=== PATIENT | male | born 1980 | race Caucasian/White ===

== ENCOUNTER 2019-06-27 11:47 | Inpatient (IN) | payer OTHER, SELFPAY ==
[2019-06-27] VITALS (11 sets, daily range): BP systolic 110–207; BP diastolic 71–136; PULSE 90–114; RESP 16–20; TEMP 36.7–37.2; O2SAT 92–99; BMI 37.7; BMI 36.8
[2019-06-27] MEDS: LORazepam 2 MG/ML Syringe 1 MG IV ×3 (12:35→18:37)
[2019-06-27 12:54] LABS: Absolute Lymphocyte Count 0.93 X10^3/uL (0.83-4.51); Basophil# 0.06 X10^3/uL; Basophil% 1.3 % (0-1); Eosinophil# 0.06 X10^3/uL; Eosinophils% 1.3 % (0-5); Hematocrit 42.4 % (40-54); Hemoglobin 15.4 g/dL (13.0-16.5); Lymphocyte # 0.93 X10^3/ul (4.0); Lymphocyte % 19.8 % (19-41); Mean Corp Hgb Conc 36.3 g/dL (32-36); Mean Corpuscular Hgb 33.3 pg (27.0-32.0); Mean Corpuscular Volume 91.6 fL (80-94); Monocyte# 0.61 X10^3/uL; NRBC Flagged by Analyzer 0 % (0-5); Neutrophil # 3.02 X10^3/uL (2.7-7.7); Neutrophil % 64.4 % (47-70); Platelet Count 173 K/mm3 (150-450); RBC Distribution Width CV 13.6 % (11.6-14.6); RBC Distribution Width SD 45.7 fl (35.1-43.9); Red Blood Count 4.63 M/mm3 (4.6-6.2); White Blood Count 4.7 K/mm3 (4.4-11.0)
[2019-06-27 13:07] LABS: Amphetamine Urine VISTA NEGATIVE (<1000 ng/mL); Barbiturate Urine VISTA NEGATIVE (< 200 ng/mL); Benzodiazepine Urine VISTA NEGATIVE (< 200 ng/mL); Cocaine Urine VISTA NEGATIVE (< 300 ng/mL); Ecstacy Urine VISTA NEGATIVE (< 500 ng/mL); Methadone Urine VISTA NEGATIVE (< 300 ng/mL); PCP Urine VISTA NEGATIVE (< 25 ng/mL); THC Urine VISTA NEGATIVE (< 50 ng/mL); Vista UDS pH Range 6
[2019-06-27 13:09] LABS: AST(SGOT) 100 U/L (15-37); Alanine Aminotransfer ALT/SGPT 145 U/L (16-61); Albumin, Serum 4.3 g/dL (3.2-5.0); Alkaline Phosphatase 57 U/L (45-117); Anion Gap 9 (5-15); BUN 7 mg/dL (7-18); Chloride 98 mmol/L (98-107); Creatinine, Serum 0.87 mg/dL (0.70-1.30); EST Glomerular Filtration Rate 104 mL/min (>60); Est Glom Filt Rate - Afr Amer 126 mL/min (>60); Estimated Creatinine Clearance 101.13 ml/min; Globulin 4.3 g/dL (2.2-4.2); Glucose 105 mg/dL (74-106); Potassium 3.3 mmol/L (3.5-5.1); Protein, Total 8.6 g/dL (6.4-8.2); Sodium Level 133 mmol/L (136-145)
--- NOTE | 2019-06-27 13:23 | ED.VISSUMM ---
- ER Visit Summary Date of Service: 06/27/19 Chief Complaint: Alcohol withdrawal History of Present Illness: The patient is a 38 M who drinks 18 or more beers per day. His last use was this morning at 9 AM. His last period of sobriety was earlier in the summer for about a week. No history of seizures or DTs. Denies any suicidal or homicidal thoughts. He is requesting alcohol detox. He also reports a history of hypertension, he is not taking his blood pressure medications as he does not follow-up with physician regularly. Physical Examination: Blood pressure 207/136. Heart rate 106. Otherwise vitals unremarkable. Patient depressed and tearful. Alert and oriented. Heart regular. Lungs clear. Abdomen soft and nontender. Skin is flushed but otherwise unremarkable. CIWA score is 21. Test Results: CBC unremarkable. Sodium 133 and potassium 3.3. ALT 145 and AST 100. Tox screen negative. Alcohol level pending. Emergency Department Course and Treatment: Patient treated with Ativan for withdrawal symptoms. Medical clearance was pursued. His work-up, as above, was unremarkable. His repeat blood pressure after Ativan was 168/124. He was treated with clonidine 0.1 mg p.o. Patient was evaluated by josué nieves and does meet criteria for admission. Will contact the hospitalist. Treatment Plan: As above Disposition: Admission Impression: 1. Alcohol withdrawal 2. Hypertension This note was generated with [employer] dictation software. It may contain incorrect words, spelling, and punctuation that were not noted in review of the chart prior to signing ED Disposition - Plan for ED Patient: Referrals: Jessenia Hensley NP-C [Primary Care Provider] -
--- NOTE | 2019-06-27 13:53 | HP.PCM_ITS ---
Problem List (1) Hypertensive urgency Status: Acute (2) Alcohol withdrawal delirium, acute, hyperactive Status: Acute (3) Hypertension Status: Chronic (4) Eosinophilic esophagitis Status: Chronic History of Present Illness Date of Admission: 06/27/19 Chief Complaint: Alcohol withdrawal syndrome. The patient is a 38 year old M with history of hypertension noncompliant to medication came to ED for withdrawal symptoms. Patient has a history of drinking 18 or more beers every day started in teenage, last drink 9 AM today. Patient tried for quitting and was sober for about 1 week and summer. Patient usually gets tremors, sometimes tactile hallucination as withdrawal symptoms. Denies history of seizure. Currently, feeling anxious, restless, loose bowel movement but denies active hallucinations. Patient CIWA score was 21 in the ED. Patient also has elevated blood pressure, 207/136, heart rate 106/min. Patient was given Ativan 1 mg and blood pressure came down to 168/124. Patient also given clonidine 0.1 mg. [] Past Medical History Past Medical History (Chronic Problems): Chronic Problems Hypertension (Chronic) Eosinophilic esophagitis (Chronic) Allergies oxaprozin [From Daypro] Allergy (Verified 06/27/19 11:52) Hives Home Medications: Ambulatory Orders Medication Instructions Recorded Lansoprazole [Prevacid] 30 mg PO DAILY 06/27/19 Loratadine [Claritin] 10 mg PO DAILY 06/27/19 Smoking Status: Never smoker - *Family History Paternal History Items: Heart Disease, - - Chronic alcohol disease/alcoholic hepatitis Review of Systems Constitutional: Denies: Chills, Fever, Weight Change HEENT: Denies: Head Aches, Sinus Congestion, Sinus Drainage Cardiovascular: Denies: Chest Pain, Palpitations Respiratory: Denies: Cough, Shortness of breath at rest, Sputum production Gastrointestinal: Denies: Abdominal Pain, Nausea, Vomiting Genitourinary: Denies: Dysuria, Frequency, Hematuria, Incontinence Musculoskeletal: Reports: Joint Pain - Chronic right shoulder surgery.. Denies: Joint Tenderness Skin: Denies: Rash, Wounds Neurological: Denies: Numbness, Tingling, Focal weakness Psychiatric: Reports: Anxiety. Denies: Depression, Homicidal Ideations, Suicidal Ideations Hematologic/ Lymphatic: Denies: Easy Bruising, Easy Bleeding VTE Information - Inpt Only VTE Present on Admission: No VTE Mechan Device Prophylaxis: None VTE Pharm Prophylaxis ordered?: No Reason prophylaxis not ordered:: Procedure Not Indicated Patient Problems: Active and Suspected Problems Hypertensive urgency (Acute) Alcohol withdrawal delirium, acute, hyperactive (Acute) - Physical Exam General: Alert, Oriented x3, Cooperative HEENT: Atraumatic, PERRLA, EOMI, Normocephalic Oral: Dry Mucosa Neck: Supple, No JVD, Negative Carotid Bruits Lungs: Clear to auscultation, No rhonchi, No wheeze, No rales, Diminished - Air entry is diminished in bilateral lung bases. Cardiovascular: Regular rate, Regular Rhythm, Normal S1, Normal S2, No murmurs Abdomen: Bowel Sounds Present, Soft, Non Tender, Non-Distended Extremities: No edema, Capillary Refill Less than 3 Seconds Skin: No rashes, No breakdown Musculoskeletal: No Tenderness to Palpation of Joints or Extremities, - - Shoulder arthritis changes. Neurological: Cranial nerves II-XII grossly intact, Deep Tendon Reflexes 2+/4 and Symmetrical, Neuro grossly intact, Motor Exam 5/5 strength throughout Psych/Mental Status: Normal Affect, Appropriate Vital Signs Temp Pulse Resp BP Pulse Ox 98.3 F 90 16 168/124 H 99 06/27/19 12:03 06/27/19 13:21 06/27/19 13:21 06/27/19 13:21 06/27/19 13:21 Oxygen Delivery Method Room Air Weight: 226 lb 10.163 oz Body Mass Index (BMI) 37.7 Laboratory Tests Past 24 Hrs 06/27/19 06/27/19 06/27/19 12:43 12:43 12:43 WBC 4.7 RBC 4.63 Hgb 15.4 Hct 42.4 MCV 91.6 MCH 33.3 H MCHC 36.3 H RDW Std Deviation 45.7 H RDW Coeff of Lalitha 13.6 Plt Count 173 MPV 10.0 Immature Gran % (Auto) 0.200 Neut % (Auto) 64.4 Lymph % (Auto) 19.8 [place] % (Auto) 13.0 H Eos % (Auto) 1.3 Baso % (Auto) 1.3 H Absolute Neuts (auto) 3.0 Absolute Lymphs (auto) 0.93 Nucleated RBC % 0 Sodium 133 L Potassium 3.3 L Chloride 98 Carbon Dioxide 26.0 Anion Gap 9 BUN 7 Creatinine 0.87 Estim Creat Clear Calc 101.13 Est GFR (MDRD) Af Amer 126 Est GFR (MDRD) Non-Af 104 BUN/Creatinine Ratio 8.0 L Glucose 105 Calcium 9.0 Total Bilirubin 0.60 AST 100 H ALT 145 H Alkaline Phosphatase 57 Total Protein 8.6 H Albumin 4.3 Globulin 4.3 H Albumin/Globulin Ratio 1.0 Urine Opiates Screen Urine Methadone Screen Ur Barbiturates Screen Ur Phencyclidine Scrn Ur Amphetamines Screen U Methamphetamin-MDMA U Benzodiazepines Scrn Urine Cocaine Screen U Cannabinoids Screen Ur Drug Screen Comment Ethyl Alcohol 119.0 06/27/19 12:45 WBC RBC Hgb Hct MCV MCH MCHC RDW Std Deviation RDW Coeff of Lalitha Plt Count MPV Immature Gran % (Auto) Neut % (Auto) Lymph % (Auto) [place] % (Auto) Eos % (Auto) Baso % (Auto) Absolute Neuts (auto) Absolute Lymphs (auto) Nucleated RBC % Sodium Potassium Chloride Carbon Dioxide Anion Gap BUN Creatinine Estim Creat Clear Calc Est GFR (MDRD) Af Amer Est GFR (MDRD) Non-Af BUN/Creatinine Ratio Glucose Calcium Total Bilirubin AST ALT Alkaline Phosphatase Total Protein Albumin Globulin Albumin/Globulin Ratio Urine Opiates Screen NEGATIVE Urine Methadone Screen NEGATIVE Ur Barbiturates Screen NEGATIVE Ur Phencyclidine Scrn NEGATIVE Ur Amphetamines Screen NEGATIVE U Methamphetamin-MDMA NEGATIVE U Benzodiazepines Scrn NEGATIVE Urine Cocaine Screen NEGATIVE U Cannabinoids Screen NEGATIVE Ur Drug Screen Comment Ethyl Alcohol Assessment/Plan All Active Problems Hypertensive urgency (Acute) Alcohol withdrawal delirium, acute, hyperactive (Acute) There is a 38 old gentleman was admitted for medical stabilization of alcohol withdrawal symptoms. Patient last drink was 9 AM today and drinks 18 beers daily. Patient also had hypertensive urgency, admitting blood pressure 207/136 in ED. CIWA score 21 to ED. 1. Acute alcohol withdrawal syndrome: Patient is being admitted in PCU for hypertensive urgency. On medical stabilization order for alcohol withdrawal. CIWA monitoring. Currently on Librium scheduled and then taper. 2. Hypertensive urgency: Patient is noncompliant with antihypertensive medication. On her home medication, there is no listed antihypertensive medication but he told he was prescribed in the past. Started on clonidine 0.2 mg twice daily for 2 days, lisinopril 10 mg daily along with hydralazine 10 mg every 4 hourly as needed for systolic blood pressure more than 180 mmHg. Twelve-lead EKG ordered. Patient also has history of chest pain in the past and had a stress test done which was negative. Currently patient denies chest pain, shortness of breath. 3. Alcoholic hepatitis: ALT and AST elevated 145 and 100. Total bili is normal. Alkaline phosphatase 57. A/G ratio 1:1 . Monitor LFT daily and if transaminases worsens, change Librium to Ativan. Currently, I think Librium will be better option because of high CIWA score and patient chronic alcoholism history. On thiamine, folic acid and multivitamin. B12 and folic acid ordered. Right upper quadrant sonogram for tomorrow a.m. 4. Electrolyte imbalance: Patient has hyponatremia, mainly hypotonic hypovolemic and hypokalemia: Electrolytes are being replaced. On IV fluid normal saline 100 mL/h for 2 L. DVT prophylaxis: Low risk early ambulation encouraged. Code Visit Inpatient E&M: 46468 Init Hosp L3
[2019-06-27] MEDS: cloNIDine HCl 0.1 MG Tablet PO (14:06)
--- NOTE | 2019-06-27 14:41 | EKG12_ITS ---
Test Reason : HTN Blood Pressure : / mmHG Vent. Rate : 104 BPM Atrial Rate : 104 BPM P-R Int : 170 ms QRS Dur : 104 ms QT Int : 362 ms P-R-T Axes : 017 013 -10 degrees QTc Int : 476 ms Sinus tachycardia Possible Left atrial enlargement Left ventricular hypertrophy T wave abnormality, consider inferior ischemia Abnormal ECG No previous ECGs available Confirmed by NAZANIN GOMEZ ([id number]), technical editor JOSE DICK ([id number]) on 07/01/2019 9:03:44 AM Referred By: ANG Confirmed By:NAZANIN GOMEZ
[2019-06-27 15:01] LABS: Phosphorus 3.5 mg/dL (2.5-4.9)
[2019-06-27 15:17] LABS: International Normalized Ratio 0.9; Prothrombin Time (Protime)PT. 12.4 SECONDS (11.7-14.9)
[2019-06-27] MEDS: Lisinopril 10 MG Tablet PO (15:26)
[2019-06-27] MEDS: 0.9% Normal Saline 1,000 ML 100 ML IV (15:27)
[2019-06-27 15:40] LABS: Bedside Glucose 105 mg/dL (70-110)
[2019-06-27] MEDS: chlordiazePOXIDE 25 MG Capsule PO ×2 (15:45→21:34)
[2019-06-27] MEDS: hydrOXYzine PAM 25 MG Capsule 50 MG PO (17:08)
[2019-06-27] MEDS: hydrALAZINE 20 MG/ML Vial 10 MG IV (17:09)
[2019-06-27] MEDS: 0.9% NaCl Peripheral Flush Adult/Peds IV (18:38)
[2019-06-27] MEDS: Ibuprofen 600 MG Tablet 400 MG PO (18:43)
[2019-06-27] MEDS: traZODone 50 MG Tablet PO (21:33)
--- NOTE | 2019-06-27 21:35 | NURSING ---
Pt made NPO at this time for Liver US in the AM.
[2019-06-28] VITALS (17 sets, daily range): BP systolic 131–154; BP diastolic 82–103; PULSE 79–98; RESP 12–21; TEMP 36.8–37.3; O2SAT 92–97
[2019-06-28] MEDS: 0.9% Normal Saline 1,000 ML 100 ML IV (02:06)
[2019-06-28] MEDS: chlordiazePOXIDE 25 MG Capsule PO ×3 (05:01→17:48)
[2019-06-28 08:27] LABS: ALB/GLOB Ratio 0.9 RATIO (0.9-2.4); AST(SGOT) 61 U/L (15-37); Alanine Aminotransfer ALT/SGPT 104 U/L (16-61); Albumin, Serum 3.3 g/dL (3.2-5.0); Alkaline Phosphatase 46 U/L (45-117); Anion Gap 7 (5-15); BUN 13 mg/dL (7-18); BUN/Creat Ratio 13.6 RATIO (10-20); Calcium,Total 8.6 mg/dL (8.5-10.1); Chloride 106 mmol/L (98-107); Creatinine, Serum 0.96 mg/dL (0.70-1.30); EST Glomerular Filtration Rate 94 mL/min (>60); Est Glom Filt Rate - Afr Amer 114 mL/min (>60); Estimated Creatinine Clearance 91.64 ml/min; Globulin 3.5 g/dL (2.2-4.2); Glucose 100 mg/dL (74-106); Protein, Total 6.8 g/dL (6.4-8.2); Sodium Level 140 mmol/L (136-145)
[2019-06-28 09:57] LABS: Vitamin B12 391 pg/mL (211-911)
[2019-06-28] MEDS: Lisinopril 10 MG Tablet PO (10:14)
[2019-06-28] MEDS: Pantoprazole Sodium 40 MG Tablet PO (10:14)
[2019-06-28] MEDS: Multivitamins,Therapeutic Tablet 1 TABLET PO (10:14)
[2019-06-28] MEDS: Thiamine Hydrochloride 100 MG Tablet PO (10:14)
[2019-06-28] MEDS: Folic Acid 1 MG Tablet PO (10:14)
[2019-06-28] MEDS: cloNIDine HCl 0.1 MG Tablet 0.2 MG PO ×2 (10:15→22:30)
--- NOTE | 2019-06-28 11:07 | CASEMGMT ---
AGAPITO spoke with Fartun from [employer] and she plans to talk with patient. Estelle MITCHELL MSW
--- NOTE | 2019-06-28 11:28 | [facility]VISION ---
[facility] met with patient to discuss aftercare inpatient/outpatient options. 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 Patient states that he wants time to consider his options in his area and discuss and schedule with his family's help. Patient was advised to consider underlying issues that may have precipitated the drinking and locate a counselor that best suits his needs. [facility] to round tomorrow to assist further if needed.
--- NOTE | 2019-06-28 14:31 | US_ITS ---
STUDY: ABDOMINAL ULTRASOUND - RIGHT UPPER QUADRANT REASON FOR VISIT: Male, 38 years old. Elevated liver function tests. TECHNIQUE: Ultrasound evaluation of the right upper quadrant was performed with real-time and static mendoza-scale imaging. TECHNICAL QUALITY: Adequate. COMPARISON: None. FINDINGS: Liver: The liver measures 15.4 cm. There is increased echogenicity consistent with fatty infiltration. Focal fatty sparing is seen adjacent to the gallbladder fossa. The bile ducts are within normal limits. There is hepatic color flow. The direction of portal flow is hepatopetal. There is no demonstrated mass lesion. Gallbladder: Normal distended gallbladder. The gallbladder wall measures 2.0 mm. There is a negative sonographic Sanchez's sign. There is no pericholecystic fluid. I suspect a solitary gallstone. Common Bile Duct (C.B.D.): The common bile duct measures 3.0 mm. Pancreas: Normal size of the head, body of the pancreas. The tail portion is obscured due to overlying bowel gas. There is normal echogenicity of the pancreas. There is no demonstrated pancreatic mass or cyst. Right Kidney: Normal size of the right kidney. The right kidney measures 12.7 cm x 5.3 cm x 5.5 cm. Normal renal cortex. The right cortex measures 1.6 cm. There is no demonstrated renal mass or cyst. There is no right hydronephrosis. US/Abdomen Limited IMPRESSION: Fatty infiltration of the liver with focal fatty sparing. I suspect a 5 mm x 8 mm x 5 mm solitary gallstone. Electronically Signed: Josh Holguin, at 15:20 EDT , Service support ,
--- NOTE | 2019-06-28 15:05 | PCM.PROGNOTE ---
Patient Problems: Active and Suspected Problems Hypertensive urgency (Acute) Alcohol withdrawal delirium, acute, hyperactive (Acute) Subjective: The patient is a 38-year-old male with a past medical history of alcoholism, obesity, noncompliance with medications and hypertension who presented to the emergency room at [facility] on 06/27/2019 requesting inpatient admission for medical stabilization for withdrawal from alcohol. He admitted to not taking his blood pressure medications consistently. Vital signs at presentation to the emergency room were temp 98.1, pulse rate 106, blood pressure 207/136, respiratory rate 16 and he was 95 to 99% saturated on room air. CBC was unremarkable. PT was within normal limits. Sodium was low at 133 and the potassium was low at 3.3. BUN was 7 and the creatinine was 0.78. Alkaline phosphatase and bilirubin were within normal limits however the AST was elevated at 100 and the ALT was elevated at 145. Ethyl alcohol level was 119 at admission which is consistent with being legally drunk. His last drink of alcohol was a few hours prior to presenting to the emergency department. He had no withdrawal symptoms at presentation to the emergency department. He was admitted to the hospital for medical stabilization for acute alcohol withdrawal and [facility] was consulted. All events of the past 24 hours been reviewed. Afebrile since admission. Heart rate is within normal limits. Current blood pressure is 137/86. Pulse ox is 92% on room air. All lab was personally reviewed. The sodium is up to 140 following hydration and the potassium is normal today at 4.0. AST and ALT are decreasing and are 61 and 104 respectively today. B12 and folate were within normal limits. Started drinking in high school and it was more social. 3 years ago he got a divorce and his drinking started to escalate. For the past year his drinking has gotten much worse and he has been drinking everyday....usually at night. Recently he stopped on his own for 1 week and felt better....lost weight. He had a beer on the weekend and is now drinking daily again. He has never be in rehab before and has never been admitted for a detox program. He stopped the BP pill prescribed by his PCP because he thought it was making him gain weight. He has been having some problems with his new because of the drinking but, in general she is very supportive. He did receive some counselling when he was going through the divorce...not related to alcohol. Tremors are improving, denies hallucinations, denies felling anxious - Physical Exam General: Alert, Oriented x3, Cooperative, - - having mild tremors HEENT: Atraumatic, PERRLA, EOMI, Normocephalic Oral: Moist Mucosa Neck: Trachea Midline Lungs: Clear to auscultation Cardiovascular: Regular rate, Regular Rhythm, Normal S1, Normal S2, No murmurs Abdomen: Bowel Sounds Present, Soft, Non Tender, Non-Distended, Obese, - - No hepatomegaly appreciated Extremities: No clubbing, No cyanosis, No edema Neurological: Cranial nerves II-XII grossly intact, Neuro grossly intact, - - Mild tremors of his hands and tongue Psych/Mental Status: Appropriate - Tearful at times, blaming himself for starting to drink again when he had stopped for a week and felt so much better. Vital Signs Temp Pulse Resp BP Pulse Ox 98.5 F 81 18 137/86 H 92 06/28/19 14:04 06/28/19 14:55 06/28/19 14:04 06/28/19 14:04 06/28/19 14:04 Oxygen Delivery Method Room Air Weight: 224 lb 10.417 oz Body Mass Index (BMI) 36.8 Intake and Output for Last 24 Hours 06/26/19 06/27/19 06/28/19 23:59 23:59 23:59 Intake Total 2429 / 2429 1214 / 1214 Output Total 0 / 0 Balance 2429 / 2429 1214 / 1214 Laboratory Tests Past 24 Hrs 06/27/19 06/28/19 06/28/19 14:45 07:23 07:23 PT 12.4 INR 0.9 Sodium 140 Potassium 4.0 Chloride 106 Carbon Dioxide 27.0 Anion Gap 7 BUN 13 Creatinine 0.96 Estim Creat Clear Calc 91.64 Est GFR (MDRD) Af Amer 114 Est GFR (MDRD) Non-Af 94 BUN/Creatinine Ratio 13.6 Glucose 100 Calcium 8.6 Total Bilirubin 0.80 AST 61 H ALT 104 H Alkaline Phosphatase 46 Total Protein 6.8 Albumin 3.3 Globulin 3.5 Albumin/Globulin Ratio 0.9 Vitamin B12 391 Folate 14.60 POC Glucose 06/27/19 15:31 POC Glucose 105 Medical Necessity - Tobacco Use Smoking Status: Never smoker Assessment/Plan All Active Problems Hypertensive urgency (Acute) Alcohol withdrawal delirium, acute, hyperactive (Acute) Impressions 1. acute alcohol withdrawal 2. Hypertensive urgency 3. non-compliance with medication 4. alcohol dependence 5. Obesity 6. Hyponatremia-resolved 7. Hypokalemia-resolved 8. Abnormal LFTs with transaminitis-likely secondary to alcohol with possible fatty infiltration of the liver Continue [facility] protocol for acute alcohol withdrawal Continue the current Antihypertensives Code Visit Inpatient E&M: 90801 Subs Hosp L2
[2019-06-28] MEDS: traZODone 50 MG Tablet PO (22:29)
[2019-06-29] VITALS (13 sets, daily range): BP systolic 138–188; BP diastolic 92–107; PULSE 71–95; RESP 12–20; TEMP 36.9–37.4; O2SAT 94–96
[2019-06-29] MEDS: chlordiazePOXIDE 25 MG Capsule PO ×3 (02:56→17:14)
[2019-06-29] MEDS: Ibuprofen 400 MG Tablet PO (03:18)
[2019-06-29 05:39] LABS: AST(SGOT) 43 U/L (15-37); Alanine Aminotransfer ALT/SGPT 85 U/L (16-61); Albumin, Serum 3.3 g/dL (3.2-5.0); Alkaline Phosphatase 42 U/L (45-117); Anion Gap 8 (5-15); BUN 20 mg/dL (7-18); Calcium,Total 8.9 mg/dL (8.5-10.1); Chloride 107 mmol/L (98-107); Cholesterol 193 mg/dL (200); Creatinine, Serum 1.11 mg/dL (0.70-1.30); EST Glomerular Filtration Rate 79 mL/min (>60); Est Glom Filt Rate - Afr Amer 96 mL/min (>60); Estimated Creatinine Clearance 79.26 ml/min; Globulin 3.4 g/dL (2.2-4.2); Glucose 105 mg/dL (74-106); High Density Lipoprotein 79 mg/dL; Potassium 4.2 mmol/L (3.5-5.1); Protein, Total 6.7 g/dL (6.4-8.2); Sodium Level 142 mmol/L (136-145); Triglycerides 110 mg/dL; Very Low Density Lipoprotein 22 mg/dL (5-40)
[2019-06-29] MEDS: Thiamine Hydrochloride 100 MG Tablet PO (08:47)
[2019-06-29] MEDS: Multivitamins,Therapeutic Tablet 1 TABLET PO (08:48)
[2019-06-29] MEDS: Pantoprazole Sodium 40 MG Tablet PO (08:48)
[2019-06-29] MEDS: Lisinopril 10 MG Tablet PO ×2 (08:48→21:14)
[2019-06-29] MEDS: Folic Acid 1 MG Tablet PO (08:48)
[2019-06-29] MEDS: cloNIDine HCl 0.1 MG Tablet 0.2 MG PO ×2 (08:53→21:14)
[2019-06-29] MEDS: 0.9% NaCl Peripheral Flush Adult/Peds IV (10:06)
--- NOTE | 2019-06-29 13:30 | NEWVISION ---
Met with patient and patient's to discuss after care options. Provided information for [facility] for one on one counseling,
--- NOTE | 2019-06-29 20:17 | PN_ITS ---
Subjective: All events of the past 24 hours of been reviewed. BP's are still mildly increased but they are coming under better control. Heart rate is within normal limits. He is less tremulous today Denies nausea, vomiting, abdominal pain. Continues to assert that he wants to do outpatient alcohol rehab with [facility] going forward. His is quite concerned about this and I spoke to her privately and together with the patient. Objective: PHYSICAL EXAM: GENERAL: alert, oriented X 3, Cooperative, NAD ORAL: moist mucosa, no mucosal lesions NECK: No JVD, supple, trachea midline LUNGS: CTA, symmetric chest expansion HEART: RRR, Normal S1 and S2, no rub, no gallop ABDOMEN: soft, NT, ND, BS present, no guarding with palpation EXTREMITIES: no edema, no cyanosis, no calf tenderness SKIN: No rashes, no breakdown NEUROLOGIC: no focal neurologic deficits PSYCH: appropriate, normal affect, pleasant - Physical Exam Vital Signs Temp Pulse Resp BP Pulse Ox 98.8 F 84 18 145/95 H 95 06/29/19 17:20 06/29/19 17:20 06/29/19 17:20 06/29/19 17:20 06/29/19 17:00 Oxygen Delivery Method Room Air Weight: 224 lb 10.417 oz Body Mass Index (BMI) 36.8 Intake and Output for Last 24 Hours 06/27/19 06/28/19 06/29/19 23:59 23:59 23:59 Intake Total 2429 / 2429 1944 / 1944 600 / 600 Output Total 0 / 0 Balance 2429 / 2429 194 / 1944 600 / 600 Laboratory Tests Past 24 Hrs 06/29/19 05:10 Sodium 142 Potassium 4.2 Chloride 107 Carbon Dioxide 27.0 Anion Gap 8 BUN 20 H Creatinine 1.11 Estim Creat Clear Calc 79.26 Est GFR (MDRD) Af Amer 96 Est GFR (MDRD) Non-Af 79 BUN/Creatinine Ratio 18.0 Glucose 105 Calcium 8.9 Total Bilirubin 0.50 AST 43 H ALT 85 H Alkaline Phosphatase 42 L Total Protein 6.7 Albumin 3.3 Globulin 3.4 Albumin/Globulin Ratio 1.0 Triglycerides 110 Cholesterol 193 LDL Cholesterol 92 VLDL Cholesterol 22 HDL Cholesterol 79 Medical Necessity - Tobacco Use Smoking Status: Never smoker Assessment/Plan All Active Problems Abnormal LFTs (Acute) Hypokalemia (Resolved) Hyponatremia (Resolved) Hypertensive urgency (Acute) Alcohol withdrawal (Acute) Impressions 1. acute alcohol withdrawal 2. Hypertensive urgency 3. non-compliance with medication 4. alcohol dependence 5. Obesity 6. Hyponatremia-resolved 7. Hypokalemia-resolved 8. Abnormal LFTs with transaminitis-likely secondary to alcohol with possible fatty infiltration of the liver Continue [facility] protocol for acute alcohol withdrawal Start Effexor X are 75 mg p.o. every morning I spent a total of 50 minutes between talking with his individually, the patient individually and the patient and his together. His , Rosa Maria, is quite concerned about him not being able to follow-up with [facility] for 2 weeks. 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 He tells me that there is a man in his [employer] who is a recovering alcoholic and he feels comfortable approaching this gentleman and asking for help. I encouraged Rosa Maria to attend an Al-Anon meeting to learn how to not enable him. Rosa Maria has gotten rid of all the alcohol in their house. We also discussed Antabuse and Vivitrol to help control resumption of alcohol dependence. Servando feels that he can do this and wants to try without Antabuse or Vivitrol and with outpatient counseling only. Will reevaluate in the a.m. and likely discharge home unless he changes his mind. Trazodone 50 to 100 mg nightly Effexor XR 75 mg to begin in the a.m. Patient was assured that Effexor is associated with weight loss and not weight gain. Continue antihypertensives-his blood pressure is very sensitive to any stress Code Visit Inpatient E&M: 70786 Subs Hosp L3
[2019-06-29] MEDS: traZODone 50 MG Tablet PO (21:14)
[2019-06-30] VITALS (7 sets, daily range): BP systolic 158–180; BP diastolic 88–103; PULSE 70–89; RESP 16–18; TEMP 36.6–37.6; O2SAT 94–96
[2019-06-30] MEDS: chlordiazePOXIDE 25 MG Capsule PO (05:03)
[2019-06-30 06:06] LABS: Cholesterol 188 mg/dL (200); High Density Lipoprotein 74 mg/dL; Triglycerides 85 mg/dL; Very Low Density Lipoprotein 17 mg/dL (5-40)
[2019-06-30] MEDS: Pantoprazole Sodium 40 MG Tablet PO (09:03)
[2019-06-30] MEDS: Venlafaxine XR 75 MG Capsule PO (09:03)
[2019-06-30] MEDS: Lisinopril 20 MG Tablet PO (09:03)
[2019-06-30] MEDS: Folic Acid 1 MG Tablet PO (09:03)
[2019-06-30] MEDS: Multivitamins,Therapeutic Tablet 1 TABLET PO (09:03)
[2019-06-30] MEDS: Thiamine Hydrochloride 100 MG Tablet PO (09:03)
--- NOTE | 2019-06-30 13:45 | PCM.DC ---
- Discharge Diagnoses Current Active Problems: Current Active and Chronic Problems Hypertensive urgency (Acute) Alcohol withdrawal delirium, acute, hyperactive (Acute) Hypertension (Chronic) Eosinophilic esophagitis (Chronic) You will use the following diet at home:: Other - low salt Your food should be the consistency of: Regular Your liquids should be the consistency of: Regular/Thin Discharge Activity: Return to Normal Activity Call your doctor if you observe: Fever of 101 or Higher, Dizziness, Fainting spells, Swelling in the ankles, Chest pain, - Additional Instructions: 1. Do NOT stop any medication due to a suspected side effect unless you take to your doctor first. 2. I think it would be a great idea for you to connect with the spiritism member who is a recovering alcoholic. 3. You can take 1 or 2 of the trazodone at night to help sleep........start out with 1 and if this is not working for you then increase the dose to 2 tabs at night,. 4. Exercise, good sleep and a healthy diet are instrumental in managing anxiety and addictions. 5. IF you fall off the wagon please come back to the hospital and we will work on getting you into an inpatient facility not in [place]. 6. I faxed your precriptions to [facility] and they should be ready for you. 7. If we can not control your anxiety then it will be even more difficult to quit drinking. there is a counselling center on [facility] just before you get to [facility]. It is the [facility] and the phone number is [phone]. They have several excellent therapists there and it his one-on-one and confidential. 8. [facility] [place] Allergies/Adverse Reactions: Allergies oxaprozin [From Daypro] Allergy (Verified 06/27/19 11:52) Hives Medications to take at Discharge Lansoprazole [Prevacid] 30 mg PO DAILY 06/27/19 Loratadine [Claritin] 10 mg PO DAILY 06/27/19 Atenolol 50 mg PO QHS #30 tab 06/30/19 Venlafaxine XR [Effexor Xr] 75 mg PO DAILY #30 cap 06/30/19 traZODone [Desyrel] 100 mg PO QHS #60 tab 06/30/19 The following prescriptions were given: Atenolol 50 mg PO QHS #30 tab Transmission Status: Pending to [id number] traZODone [Desyrel] 100 mg PO QHS #60 tab Transmission Status: Pending to [id number] Venlafaxine XR [Effexor Xr] 75 mg PO DAILY #30 cap Transmission Status: Pending to [id number] Primary Care Physician: Jessenia Hensley NP-C [Primary Care Provider] - Test Results: Test results from this visit will be discussed in further detail at your follow-up appointment, if applicable. Please Follow Up With: Jacquelin Quezada MD When: 1week - could also see Navi Montelongo NP Proposed Discharge Date: 06/30/19
--- NOTE | 2019-06-30 14:05 | DS.PCM_ITS ---
Discharge Date and Diagnosis Date of Admission: 06/27/19 Date of Discharge: 06/30/19 - Primary Discharge Diagnosis Acute ETOH withdrawal Hypertensive urgency Hyponatremia-resolved Hypokalemia-resolved - Secondary Discharge Diagnosis Chronic Problems Fatty infiltration of liver (Chronic) with abnormal LFT's Obesity (Chronic) HTN (hypertension) (Chronic) Non-compliance with antihypertensives Anxiety and depression (Chronic) Eosinophilic esophagitis (Chronic) Hospital Course and Treatment Imaging Results: Clinical Impression(s) from Imaging Studies Abdomen Ultrasound 06/28/19 14:31 IMPRESSION: Fatty infiltration of the liver with focal fatty sparing. I suspect a 5 mm x 8 mm x 5 mm solitary gallstone. Electronically Signed: Josh Lorysheameena, at 15:20 EDT , Service support , Laboratory Tests 06/30/19 06/29/19 06/28/19 Range/Units 05:25 05:10 07:23 WBC (4.4-11.0) K/mm3 RBC (4.6-6.2) M/mm3 Hgb (13.0-16.5) g/dL Hct (40-54) % MCV (80-94) fL MCH (27.0-32.0) pg MCHC (32-36) g/dL RDW Std Deviation (35.1-43.9) fl RDW Coeff of Lalitha (11.6-14.6) % Plt Count (150-450) K/mm3 MPV (6.2-12.0) fl Immature Gran % (Auto) (0.0-0.9) % Neut % (Auto) (47-70) % Lymph % (Auto) (19-41) % [place] % (Auto) (0-10) % Eos % (Auto) (0-5) % Baso % (Auto) (0-1) % Absolute Neuts (auto) (2.0-7.7) X10^3/uL Absolute Lymphs (auto) (0.83-4.51) X10^3/uL Nucleated RBC % (0-5) % PT (11.7-14.9) SECONDS INR Sodium 142 (136-145) mmol/L Potassium 4.2 (3.5-5.1) mmol/L Chloride 107 (98-107) mmol/L Carbon Dioxide 27.0 (21.0-32.0) mmol/L Anion Gap 8 (5-15) BUN 20 H (7-18) mg/dL Creatinine 1.11 (0.70-1.30) mg/dL Estim Creat Clear Calc 79.26 ml/min Est GFR (MDRD) Af Amer 96 (>60) mL/min Est GFR (MDRD) Non-Af 79 (>60) mL/min BUN/Creatinine Ratio 18.0 (10-20) RATIO Glucose 105 (74-106) mg/dL Calcium 8.9 (8.5-10.1) mg/dL Phosphorus (2.5-4.9) mg/dL Magnesium (1.6-2.6) mg/dL Total Bilirubin 0.50 (0.20-1.00) mg/dL AST 43 H (15-37) U/L ALT 85 H (16-61) U/L Alkaline Phosphatase 42 L (45-117) U/L Total Protein 6.7 (6.4-8.2) g/dL Albumin 3.3 (3.2-5.0) g/dL Globulin 3.4 (2.2-4.2) g/dL Albumin/Globulin Ratio 1.0 (0.9-2.4) RATIO Triglycerides 85 110 ( - 199) mg/dL Cholesterol 188 193 (200) mg/dL LDL Cholesterol 97 92 (0-130) mg/dL VLDL Cholesterol 17 22 (5-40) mg/dL HDL Cholesterol 74 79 (40 - ) mg/dL Vitamin B12 391 (211-911) pg/mL Folate (3.1-55.4) ng/mL Urine Opiates Screen (< 300 ng/mL) Urine Methadone Screen (< 300 ng/mL) Ur Barbiturates Screen (< 200 ng/mL) Ur Phencyclidine Scrn (< 25 ng/mL) Ur Amphetamines Screen (<1000 ng/mL) U Methamphetamin-MDMA (< 500 ng/mL) U Benzodiazepines Scrn (< 200 ng/mL) Urine Cocaine Screen (< 300 ng/mL) U Cannabinoids Screen (< 50 ng/mL) Ur Drug Screen Comment Ethyl Alcohol mg/dL POC Glucose (70-110) mg/dL 06/28/19 06/27/19 06/27/19 Range/Units 07:23 15:31 14:45 WBC (4.4-11.0) K/mm3 RBC (4.6-6.2) M/mm3 Hgb (13.0-16.5) g/dL Hct (40-54) % MCV (80-94) fL MCH (27.0-32.0) pg MCHC (32-36) g/dL RDW Std Deviation (35.1-43.9) fl RDW Coeff of Lalitha (11.6-14.6) % Plt Count (150-450) K/mm3 MPV (6.2-12.0) fl Immature Gran % (Auto) (0.0-0.9) % Neut % (Auto) (47-70) % Lymph % (Auto) (19-41) % [place] % (Auto) (0-10) % Eos % (Auto) (0-5) % Baso % (Auto) (0-1) % Absolute Neuts (auto) (2.0-7.7) X10^3/uL Absolute Lymphs (auto) (0.83-4.51) X10^3/uL Nucleated RBC % (0-5) % PT 12.4 (11.7-14.9) SECONDS INR 0.9 Sodium 140 (136-145) mmol/L Potassium 4.0 (3.5-5.1) mmol/L Chloride 106 (98-107) mmol/L Carbon Dioxide 27.0 (21.0-32.0) mmol/L Anion Gap 7 (5-15) BUN 13 (7-18) mg/dL Creatinine 0.96 (0.70-1.30) mg/dL Estim Creat Clear Calc 91.64 ml/min Est GFR (MDRD) Af Amer 114 (>60) mL/min Est GFR (MDRD) Non-Af 94 (>60) mL/min BUN/Creatinine Ratio 13.6 (10-20) RATIO Glucose 100 (74-106) mg/dL Calcium 8.6 (8.5-10.1) mg/dL Phosphorus (2.5-4.9) mg/dL Magnesium (1.6-2.6) mg/dL Total Bilirubin 0.80 (0.20-1.00) mg/dL AST 61 H (15-37) U/L ALT 104 H (16-61) U/L Alkaline Phosphatase 46 (45-117) U/L Total Protein 6.8 (6.4-8.2) g/dL Albumin 3.3 (3.2-5.0) g/dL Globulin 3.5 (2.2-4.2) g/dL Albumin/Globulin Ratio 0.9 (0.9-2.4) RATIO Triglycerides ( - 199) mg/dL Cholesterol (200) mg/dL LDL Cholesterol (0-130) mg/dL VLDL Cholesterol (5-40) mg/dL HDL Cholesterol (40 - ) mg/dL Vitamin B12 (211-911) pg/mL Folate 14.60 (3.1-55.4) ng/mL Urine Opiates Screen (< 300 ng/mL) Urine Methadone Screen (< 300 ng/mL) Ur Barbiturates Screen (< 200 ng/mL) Ur Phencyclidine Scrn (< 25 ng/mL) Ur Amphetamines Screen (<1000 ng/mL) U Methamphetamin-MDMA (< 500 ng/mL) U Benzodiazepines Scrn (< 200 ng/mL) Urine Cocaine Screen (< 300 ng/mL) U Cannabinoids Screen (< 50 ng/mL) Ur Drug Screen Comment Ethyl Alcohol mg/dL POC Glucose 105 (70-110) mg/dL 06/27/19 06/27/19 06/27/19 Range/Units 12:45 12:43 12:43 WBC (4.4-11.0) K/mm3 RBC (4.6-6.2) M/mm3 Hgb (13.0-16.5) g/dL Hct (40-54) % MCV (80-94) fL MCH (27.0-32.0) pg MCHC (32-36) g/dL RDW Std Deviation (35.1-43.9) fl RDW Coeff of Lalitha (11.6-14.6) % Plt Count (150-450) K/mm3 MPV (6.2-12.0) fl Immature Gran % (Auto) (0.0-0.9) % Neut % (Auto) (47-70) % Lymph % (Auto) (19-41) % [place] % (Auto) (0-10) % Eos % (Auto) (0-5) % Baso % (Auto) (0-1) % Absolute Neuts (auto) (2.0-7.7) X10^3/uL Absolute Lymphs (auto) (0.83-4.51) X10^3/uL Nucleated RBC % (0-5) % PT (11.7-14.9) SECONDS INR Sodium 133 L (136-145) mmol/L Potassium 3.3 L (3.5-5.1) mmol/L Chloride 98 (98-107) mmol/L Carbon Dioxide 26.0 (21.0-32.0) mmol/L Anion Gap 9 (5-15) BUN 7 (7-18) mg/dL Creatinine 0.87 (0.70-1.30) mg/dL Estim Creat Clear Calc 101.13 ml/min Est GFR (MDRD) Af Amer 126 (>60) mL/min Est GFR (MDRD) Non-Af 104 (>60) mL/min BUN/Creatinine Ratio 8.0 L (10-20) RATIO Glucose 105 (74-106) mg/dL Calcium 9.0 (8.5-10.1) mg/dL Phosphorus (2.5-4.9) mg/dL Magnesium (1.6-2.6) mg/dL Total Bilirubin 0.60 (0.20-1.00) mg/dL AST 100 H (15-37) U/L ALT 145 H (16-61) U/L Alkaline Phosphatase 57 (45-117) U/L Total Protein 8.6 H (6.4-8.2) g/dL Albumin 4.3 (3.2-5.0) g/dL Globulin 4.3 H (2.2-4.2) g/dL Albumin/Globulin Ratio 1.0 (0.9-2.4) RATIO Triglycerides ( - 199) mg/dL Cholesterol (200) mg/dL LDL Cholesterol (0-130) mg/dL VLDL Cholesterol (5-40) mg/dL HDL Cholesterol (40 - ) mg/dL Vitamin B12 (211-911) pg/mL Folate (3.1-55.4) ng/mL Urine Opiates Screen NEGATIVE (< 300 ng/mL) Urine Methadone Screen NEGATIVE (< 300 ng/mL) Ur Barbiturates Screen NEGATIVE (< 200 ng/mL) Ur Phencyclidine Scrn NEGATIVE (< 25 ng/mL) Ur Amphetamines Screen NEGATIVE (<1000 ng/mL) U Methamphetamin-MDMA NEGATIVE (< 500 ng/mL) U Benzodiazepines Scrn NEGATIVE (< 200 ng/mL) Urine Cocaine Screen NEGATIVE (< 300 ng/mL) U Cannabinoids Screen NEGATIVE (< 50 ng/mL) Ur Drug Screen Comment Ethyl Alcohol 119.0 mg/dL POC Glucose (70-110) mg/dL 06/27/19 06/27/19 06/27/19 Range/Units 12:43 12:40 12:40 WBC 4.7 (4.4-11.0) K/mm3 RBC 4.63 (4.6-6.2) M/mm3 Hgb 15.4 (13.0-16.5) g/dL Hct 42.4 (40-54) % MCV 91.6 (80-94) fL MCH 33.3 H (27.0-32.0) pg MCHC 36.3 H (32-36) g/dL RDW Std Deviation 45.7 H (35.1-43.9) fl RDW Coeff of Lalitha 13.6 (11.6-14.6) % Plt Count 173 (150-450) K/mm3 MPV 10.0 (6.2-12.0) fl Immature Gran % (Auto) 0.200 (0.0-0.9) % Neut % (Auto) 64.4 (47-70) % Lymph % (Auto) 19.8 (19-41) % [place] % (Auto) 13.0 H (0-10) % Eos % (Auto) 1.3 (0-5) % Baso % (Auto) 1.3 H (0-1) % Absolute Neuts (auto) 3.0 (2.0-7.7) X10^3/uL Absolute Lymphs (auto) 0.93 (0.83-4.51) X10^3/uL Nucleated RBC % 0 (0-5) % PT (11.7-14.9) SECONDS INR Sodium (136-145) mmol/L Potassium (3.5-5.1) mmol/L Chloride (98-107) mmol/L Carbon Dioxide (21.0-32.0) mmol/L Anion Gap (5-15) BUN (7-18) mg/dL Creatinine (0.70-1.30) mg/dL Estim Creat Clear Calc ml/min Est GFR (MDRD) Af Amer (>60) mL/min Est GFR (MDRD) Non-Af (>60) mL/min BUN/Creatinine Ratio (10-20) RATIO Glucose (74-106) mg/dL Calcium (8.5-10.1) mg/dL Phosphorus 3.5 (2.5-4.9) mg/dL Magnesium 2.0 (1.6-2.6) mg/dL Total Bilirubin (0.20-1.00) mg/dL AST (15-37) U/L ALT (16-61) U/L Alkaline Phosphatase (45-117) U/L Total Protein (6.4-8.2) g/dL Albumin (3.2-5.0) g/dL Globulin (2.2-4.2) g/dL Albumin/Globulin Ratio (0.9-2.4) RATIO Triglycerides ( - 199) mg/dL Cholesterol (200) mg/dL LDL Cholesterol (0-130) mg/dL VLDL Cholesterol (5-40) mg/dL HDL Cholesterol (40 - ) mg/dL Vitamin B12 (211-911) pg/mL Folate (3.1-55.4) ng/mL Urine Opiates Screen (< 300 ng/mL) Urine Methadone Screen (< 300 ng/mL) Ur Barbiturates Screen (< 200 ng/mL) Ur Phencyclidine Scrn (< 25 ng/mL) Ur Amphetamines Screen (<1000 ng/mL) U Methamphetamin-MDMA (< 500 ng/mL) U Benzodiazepines Scrn (< 200 ng/mL) Urine Cocaine Screen (< 300 ng/mL) U Cannabinoids Screen (< 50 ng/mL) Ur Drug Screen Comment Ethyl Alcohol mg/dL POC Glucose (70-110) mg/dL none Operations: None Procedures: None Summary of Care Provided: The patient is a 38-year-old male with a past medical history of alcoholism, obesity, noncompliance with medications and hypertension who presented to the emergency room at [facility] on 06/27/2019 requesting inpatient admission for medical stabilization for withdrawal from alcohol. He admitted to not taking his blood pressure medications because he felt they were making him gain weight. Vital signs at presentation to the emergency room were temp 98.1, pulse rate 106, blood pressure 207/136, respiratory rate 16 and he was 95 to 99% saturated on room air. CBC was unre markable. PT was within normal limits. Sodium was low at 133 and the potassium was low at 3.3. BUN was 7 and the creatinine was 0.78. Alkaline phosphatase and bilirubin were within normal limits however the AST was elevated at 100 and the ALT was elevated at 145. Ethyl alcohol level was 119 at admission which is consistent with being legally drunk. His last drink of alcohol was a few hours prior to presenting to the emergency department. He had no withdrawal symptoms at presentation to the emergency department but, later in the admission he developed tremors. He was admitted to the hospital for medical stabilization for acute alcohol withdrawal and the [facility] Protocol for acute alcohol withdrawal was initiated. He was seen in consultation the following morning by Fartun from [facility] who discussed care options with him. She provided information for [facility] and [facility] for one-on-one counseling. 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 He was quite anxious and tearful during his admission but his withdrawal was relatively benign and he had only tremors. His blood pressure remained uncontrolled despite antihypertensives and it is very sensitive to any increase in his stress level. His was very concerned about him returning home, especially with 3 small children, and favored him going to inpatient rehab. The patient continually resisted this and elected to continue with his plan to have outpatient one-on-one counseling. I encouraged his to attend [facility]. Her father and grandfather were alcoholics in the past and she knows that she is in enabler. The patient admitted to having a high stress level and depression but was resistant to taking medication because he is afraid he will gain weight. He was started on Effexor for anxiety/depression and I did tell him that most patients either do not gain weight or actually lose weight on Effexor. He was agreeable to starting this medication. On the date of discharge he was quite anxious and his blood pressure ranged from 168/90 9-1 80/103 on the date of discharge. His heart rate was in the 70s and 80s. Because his blood pressure is so sensitive to stress and increases despite antihypertensives he was transitioned to atenolol 50 mg daily at discharge. He was discharged on 06/30/2019 with prescriptions for atenolol 50 mg, trazodone 100 mg nightly and Effexor XR 75 mg daily. If he tolerates Effexor X are 75 mg for the next 1 to 2 weeks would rapidly increased to 150 mg daily which is a more therapeutic dose. He was advised not to discontinue any medications without first talking to his PCP. He will follow-up with Dr. Berry or Navi Montelongo [facility] in 1 week. I did advise him that if he was unable to succeed with abstention from alcohol he could return to the hospital or call and we would assist him and his Rosa Maria with referral to an inpatient alcohol rehab facility. PHYSICAL EXAM: GENERAL: alert, oriented X 3, Cooperative, NAD ORAL: moist mucosa, no mucosal lesions NECK: No JVD, supple, trachea midline LUNGS: CTA, symmetric chest expansion HEART: RRR, Normal S1 and S2, no rub, no gallop ABDOMEN: soft, NT, ND, BS present, no guarding with palpation EXTREMITIES: no edema, no cyanosis, no calf tenderness SKIN: No rashes, no breakdown NEUROLOGIC: no focal neurologic deficits PSYCH: appropriate, normal affect, pleasant This note was generated with [employer] dictation software. It may contain incorrect words, spelling, and punctuation that were not noted in checking the note before signing. - Physical Exam Vital Signs Temp Pulse Resp BP Pulse Ox 98.3 F 80 18 161/101 H 94 06/30/19 13:03 06/30/19 13:03 06/30/19 13:03 06/30/19 13:03 06/30/19 13:03 Oxygen Delivery Method Room Air Weight: 224 lb 10.417 oz Body Mass Index (BMI) 36.8 Intake and Output for Last 24 Hours 06/28/19 06/29/19 06/30/19 23:59 23:59 23:59 Intake Total 1943 840 / 840 550 / 550 Output Total 0 / 0 Balance 1943 840 / 840 550 / 550 Laboratory Tests Past 24 Hrs 06/30/19 05:25 Triglycerides 85 Cholesterol 188 LDL Cholesterol 97 VLDL Cholesterol 17 HDL Cholesterol 74 Discharge Activity: Return to Normal Activity Call your doctor if you observe: Fever of 101 or Higher, Dizziness, Fainting spells, Swelling in the ankles, Chest pain, - Home Medications: Medications to take at Discharge Lansoprazole [Prevacid] 30 mg PO DAILY 06/27/19 Loratadine [Claritin] 10 mg PO DAILY 06/27/19 Atenolol 50 mg PO QHS #30 tab 06/30/19 Venlafaxine XR [Effexor Xr] 75 mg PO DAILY #30 cap 06/30/19 traZODone [Desyrel] 100 mg PO QHS #60 tab 06/30/19 Following Prescrptions Were Given to Patient: Atenolol 50 mg PO QHS #30 tab Transmission Status: Received by [id number] traZODone [Desyrel] 100 mg PO QHS #60 tab Transmission Status: Received by [id number] Venlafaxine XR [Effexor Xr] 75 mg PO DAILY #30 cap Transmission Status: Received by [id number] Primary Care Physician: Jessenia Hensley NP-C [Primary Care Provider] - Please Follow Up With: Jacquelin Quezada MD When: 1week - could also see Navi Montelongo NP Minutes spent on discharge:: 40 Patient Condition:: Stable Medical Necessity - Tobacco Use Smoking Status: Never smoker Tobacco Use: Non-smoker Meaningful Use Info Meaningful Use Diagnoses (Choose all that apply): None applicable Code Visit Inpatient E&M: 12565 Disch Hosp
--- NOTE | 2019-06-30 14:41 | CASEMGMT ---
SW spoke with patient and his . Introduced self and role at [facility]. SW asked if there were any other resources they feel would be helpful. Patient's said she did not have information on Al-Anon meetings. SW told her SW would be happy to print a list of meetings. SW offered to print a list of AA meetings for patient. He did not seem interested, but SW told him SW will print it out and that way he has it. SW printed out information on Al-Anon and a list off AA meetings and gave them to patient and his . SW also told them if they wanted meetings not in this area they could go to Al-Anon's website and put in a zip code or the AA website and do the same. SW asked if they have any questions or concerns about going home. They both stated no. SW told them that this is something they will need to work through together. SW also gave patient's some information to help her. SW received a phone call from a friend of the family wanting to see how he could help. He was aware of HIPAA and that SW is not able to share any information with him. SW told him that [facility] is no longer a service offered at [facility] and that SW's role will be to give patient's resources and assist with d/c planning. Estelle ROMERO
== END 2019-06-30 14:55 | disposition home or self-care (01) | DRG 897 ==
LOC: ED 12:58 → PCU 14:50
PROVIDERS: Admitting Provider Internal Medicine; Emergency Provider Emergency Medicine; Family Provider Nurse Practitioner Primary Care; PCP Nurse Practitioner Primary Care; Visit Provider Internal Medicine
DX: F10.231 Alcohol dependence with withdrawal delirium (principal); E87.1 Hypo-osmolality and hyponatremia; I16.0 Hypertensive urgency; K20.0 Eosinophilic esophagitis; E66.9 Obesity, unspecified; Z91.14 Patient's other noncompliance with medication regimen; Z68.37 Body mass index [BMI] 37.0-37.9, adult; E87.6 Hypokalemia; K76.0 Fatty (change of) liver, not elsewhere classified; F41.9 Anxiety disorder, unspecified; F32.9 Major depressive disorder, single episode, unspecified; Y90.5 Blood alcohol level of 100-119 mg/100 ml
CPT/HCPCS: 36415; 76705; 80053; 80061; 80307; 80320; 82607; 82746; 82962; 83735; 84100; 85025; 85610; 93005; 97802; 99285; J7030; A4216; G0480; J3490

== ENCOUNTER → 2019-08-12 09:25 | Outpatient (CLI) | payer OTHER, SELFPAY ==
[2019-08-12 09:11] VITALS: BMI 35.5
[2019-08-12 13:11] LABS: ALB/GLOB Ratio 0.9 RATIO (0.9-2.4); AST(SGOT) 21 U/L (15-37); Alanine Aminotransfer ALT/SGPT 35 U/L (16-61); Albumin, Serum 3.6 g/dL (3.2-5.0); Alkaline Phosphatase 70 U/L (45-117); Anion Gap 3 (5-15); BUN 18 mg/dL (7-18); BUN/Creat Ratio 18.4 RATIO (10-20); Calcium,Total 9.3 mg/dL (8.5-10.1); Chloride 106 mmol/L (98-107); Creatinine, Serum 0.98 mg/dL (0.70-1.30); EST Glomerular Filtration Rate 91 mL/min (>60); Est Glom Filt Rate - Afr Amer 110 mL/min (>60); Globulin 3.9 g/dL (2.2-4.2); Glucose 80 mg/dL (74-106); Potassium 4.5 mmol/L (3.5-5.1); Protein, Total 7.5 g/dL (6.4-8.2); Sodium Level 140 mmol/L (136-145)
== END ==
PROVIDERS: Family Provider Nurse Practitioner Primary Care; PCP Internal Medicine; Visit Provider Internal Medicine
DX: K76.0 Fatty (change of) liver, not elsewhere classified (principal); R94.5 Abnormal results of liver function studies; F10.10 Alcohol abuse, uncomplicated
CPT/HCPCS: 36415; 80053

== ENCOUNTER 2020-03-11 10:00 | Inpatient (IN) | payer OTHER, SELFPAY ==
[2020-03-06 15:24] VITALS: BMI 34.5
[2020-03-11] VITALS (12 sets, daily range): BP systolic 156–190; BP diastolic 90–112; PULSE 77–118; RESP 15–24; TEMP 36.4–37.2; O2SAT 91–98; BMI 33.3; BMI 35.9
--- NOTE | 2020-03-11 10:20 | ED.VIS.GEN ---
History of Present Illness Chief Complaint: Substance Abuse Informant: Patient Onset: Today Maximum Severity: Mild Narrative: Philippe virus National emergency no exposures Patient complains of shaking jitteriness tachycardia alcohol withdrawal. He has a history of alcohol abuse. He drinks about 15 beers a day. He wants to stop drinking. His last drink was sometime yesterday believes in the evening he has persistent shaking and jitteriness to the point he cannot function at home. 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 He has no history of illicit drug use his hypertension usually well controlled he states he is taking his medications, he denies history of [place] PE DVT, denies history of illicit drug use Past Medical History - Allergies and Home Meds Allergies/Adverse Reactions: Allergies oxaprozin [From Daypro] Allergy (Verified 03/11/20 10:03) Hives Primary Care Physician: Jacquelin Quezada MD [Primary Care Provider] - Past Medical History: - Smoking Status: Never smoker - Family History Paternal Family History: Family History (Last Reviewed 01/27/20 @ 13:42 by Sadia Mobley) Other Anxiety Hypertension Family History: Reports: Heart Disease, - - Chronic alcohol disease/alcoholic hepatitis Review of Systems ROS: - Tension General: Reports: Sweats. Denies: Chills, Fever Eyes: Denies: Visual changes - bilaterally, Diplopia ENT: Denies: Rhinorrhea, Sore throat Cardiovascular: Reports: Palpitations. Denies: Chest pain Respiratory: Denies: Dyspnea, Cough, Dyspnea on exertion Gastrointestinal: Denies: Abdominal pain, Nausea, Vomiting, Diarrhea, Melena, Hematochezia Genitourinary: Denies: Dysuria, Hematuria, Frequency Musculoskeletal: Denies: Back pain, Extremity Pain Skin: Denies: Rash, Wounds Neurological: Reports: - - Feels nervous and shaky. Denies: Headache, Weakness, Numbness Physical Exam Vital Signs/Narrative: Vital Signs Temp Pulse Resp BP Pulse Ox 03/11/20 10:01 97.6 F L 118 H 24 H 190/103 H 98 General: Well nourished, Well developed, No Acute Distress Head: Normocephalic, Atraumatic Eyes: Perrl, EOMI ENT: Moist mucous membranes, No rhinorrhea Neck: Supple, Nontender Cardiovascular: Regular rate, Regular rhythm, No murmurs Respiratory: No distress, CTA bilaterally, Chest nontender Abdomen: Soft, Nontender, Nondistended, Normal bowel sounds Back: Nontender, Normal Inspection Extremities: Nontender, No edema Skin: Normal color, No rash Neurological: Alert, Oriented x3, Cranial nerves II-XII grossly intact, Normal Strength, Normal Sensation, - - Does have a resting tremor tachycardia NIH is 0, he is awake alert answering questions appropriate no hallucinations Psychological: Normal affect, Normal Mood Diagnostic/Tx/Re-eval - Medical Decision Making Given all the above and his history appears to be in withdrawal IV fluids Ativan labetalol screening labs admission for further detox management The patient's screening labs are generally unremarkable, his tox ring comes back for some methamphetamine he denies illicit drug use, EKG shows a sinus tach no acute injury pattern rate 115 chest x-ray all other labs unremarkable he is medicated with Ativan IV fluids labetalol spoke with the admission team and they will admit him to PCU for further management of all the above Admit stable Impression final alcohol withdrawal, alcohol detox recurrent admission, hypertension ED Disposition - Plan for ED Patient: Diagnosis: HTN (hypertension), Alcohol abuse, Alcohol withdrawal Referrals: Jacquelin Quezada MD [Primary Care Provider] -
--- NOTE | 2020-03-11 10:23 | EKG12_ITS ---
Test Reason : Blood Pressure : / mmHG Vent. Rate : 115 BPM Atrial Rate : 115 BPM P-R Int : 176 ms QRS Dur : 102 ms QT Int : 336 ms P-R-T Axes : 036 024 000 degrees QTc Int : 464 ms Sinus tachycardia Otherwise normal ECG Confirmed by NAIF TOLEDO, JOSE ([id number]), online content editor AZAEL JACK ([id number]) on 03/12/2020 8:25:05 AM Referred By: ELZA Confirmed By:JOSE DISLA MD
[2020-03-11] MEDS: LORazepam 2 MG/ML Syringe IV ×2 (10:34→12:37)
[2020-03-11] MEDS: 0.9% Normal Saline 1,000 ML 999 ML IV (10:34)
[2020-03-11 10:38] LABS: Bacteria 0 SEEN /hpf (None Seen); Red Blood Cells-Urine 0 SEEN /hpf (0-5); Squamous Epithelial Cells - UA 0 SEEN /hpf (0-5); White Blood Cells 0 SEEN /hpf (0-5)
[2020-03-11 10:41] LABS: Absolute Lymphocyte Count 0.62 X10^3/uL (0.83-4.51); Absolute Neutrophil Count 6.8 X10^3/uL (2.0-7.7); Basophil# 0.04 X10^3/uL; Basophil% 0.5 % (0-1); Eosinophil# 0.01 X10^3/uL; Eosinophils% 0.1 % (0-5); Glucose, Dipstick Normal (Normal); Hematocrit 38.5 % (40-54); Hemoglobin 13.6 g/dL (13.0-16.5); Ketone-Dipstick 15 mg/dl (Negative); Leukocyte Esterase-Dipstick Negative /ul (Negative); Lymphocyte # 0.62 X10^3/ul (4.0); Lymphocyte % 7.8 % (19-41); Mean Corp Hgb Conc 35.3 g/dL (32-36); Mean Corpuscular Hgb 31.9 pg (27.0-32.0); Mean Corpuscular Volume 90.4 fL (80-94); Mean Platelet Vol. 9.9 fl (6.2-12.0); Monocyte# 0.46 X10^3/uL; Monocyte% 5.8 % (0-10); NRBC Flagged by Analyzer 0 % (0-5); Neutrophil # 6.84 X10^3/uL (2.7-7.7); Neutrophil % 85.4 % (47-70); Nitrite-Dipstick Negative (Negative); Occult Blood-Urine 10 /ul (Negative); Platelet Count 164 K/mm3 (150-450); Protein-Dipstick 30 mg/dl (Negative); RBC Distribution Width SD 49.5 fl (35.1-43.9); Red Blood Count 4.26 M/mm3 (4.6-6.2); Urine Bilirubin Dipstick Negative (Negative); Urine Urobilinogen Normal (Normal)
[2020-03-11 10:42] LABS: Color, Urine Yellow (Yellow); Urine Clarity Clear (Clear)
--- NOTE | 2020-03-11 10:45 | RAD_ITS ---
STUDY: X-RAY CHEST REASON FOR EXAM: Male, 39 years old. SOB; -- ETOH TECHNIQUE: Single AP portable view of the chest. COMPARISON: 19 October 2010 FINDINGS: The lungs are clear and expanded. There is no demonstrated pleural abnormality. Normal size heart. Normal mediastinum and dexter. Normal visualized pulmonary arteries. Normal visualized aortic arch and descending thoracic aorta. Normal visualized thoracic spine. Normal visualized ribs, clavicles, and shoulders. There is no demonstrated abnormality of the visualized soft tissue structures of the upper abdomen. RAD/Chest 1 View (Portable) IMPRESSION: No evidence of acute cardiopulmonary process. Electronically Signed: Jersey Jefferson DO at 11:04 EDT , Service support ,
[2020-03-11 10:54] LABS: Mucous, Urine 1+ /hpf (<or=2+)
[2020-03-11 10:55] LABS: Amphetamine Urine VISTA NEGATIVE (<1000 ng/mL); Anion Gap 14 (5-15); BUN 13 mg/dL (7-18); BUN/Creat Ratio 12.7 RATIO (10-20); Barbiturate Urine VISTA NEGATIVE (< 200 ng/mL); Benzodiazepine Urine VISTA NEGATIVE (< 200 ng/mL); Calcium,Total 8.7 mg/dL (8.5-10.1); Chloride 103 mmol/L (98-107); Cocaine Urine VISTA NEGATIVE (< 300 ng/mL); Creatinine, Serum 1.02 mg/dL (0.70-1.30); EST Glomerular Filtration Rate 87 mL/min (>60); Ecstacy Urine VISTA POSITIVE (< 500 ng/mL); Est Glom Filt Rate - Afr Amer 105 mL/min (>60); Estimated Creatinine Clearance 85.42 ml/min; Glucose 110 mg/dL (74-106); Methadone Urine VISTA NEGATIVE (< 300 ng/mL); PCP Urine VISTA NEGATIVE (< 25 ng/mL); Potassium 3.1 mmol/L (3.5-5.1); Sodium Level 137 mmol/L (136-145); THC Urine VISTA NEGATIVE (< 50 ng/mL); Vista UDS pH Range 5
--- NOTE | 2020-03-11 11:06 | NURSING ---
PCU TERELETSKY ALCOHOL ABUSE REQUIRING DETOX, HYPERTENSION
[2020-03-11] MEDS: LORazepam 2 MG/ML Syringe 1 MG IV ×2 (11:32→14:56)
[2020-03-11] MEDS: Atenolol 50 MG Tablet PO ×2 (11:32→21:30)
--- NOTE | 2020-03-11 11:37 | ED.RN ---
NOTIFIED THAT PATIENT WOULD BE ADMITTED, PATIENT PERMISSION GIVEN.
[2020-03-11] MEDS: Phenobarbital 32.4 MG Tablet 64.8 MG PO ×3 (12:36→19:57)
--- NOTE | 2020-03-11 13:33 | HP.PCM_ITS ---
Problem List (1) GERD (gastroesophageal reflux disease) Status: Chronic (2) Hypertension Status: Chronic (3) Alcohol abuse Status: Chronic (4) Fatty infiltration of liver Status: Chronic (5) Obesity Status: Chronic (6) Abnormal LFTs Status: Chronic (7) Alcohol withdrawal Status: Acute (8) Anxiety and depression Status: Chronic (9) Eosinophilic esophagitis Status: Chronic History of Present Illness Date of Admission: 03/11/20 Chief Complaint: Alcohol withdrawal. The patient is a 39 year old M who presents to the emergency room due to alcohol withdrawal. Patient was discharged January 25 following inpatient treatment for alcohol abuse at [facility]. A week following discharge, patient reports he relapsed. Patient states he was admitted for detox at [facility] June 2019 and was sober for 6 months following that admission. He states around the holidays when he was off work he relapsed and began drinking again. He is a kindergarten schoolteacher and states that his drinking has significantly worsened since being off work related to COVID pandemic. He is currently drinking 15 beers per day with last drink around 8:30 PM last evening. Patient complains of anxiety, tremors. Denies nausea, vomiting, abdominal pain. Denies other complaints. Patient states he is very motivated to quit drinking. He has a past medical history of hypertension, anxiety, depression, GERD. Past Medical History Past Medical History (Chronic Problems): Chronic Problems (Last Reviewed 01/27/20 @ 13:42 by Sadia Mobley) GERD (gastroesophageal reflux disease) (Chronic) Hypertension (Chronic) Alcohol abuse (Chronic) Fatty infiltration of liver (Chronic) Obesity (Chronic) Abnormal LFTs (Chronic) Anxiety and depression (Chronic) Eosinophilic esophagitis (Chronic) Medical History: Medical History (Last Reviewed 01/27/20 @ 13:42 by Sadia Molbey) GERD (gastroesophageal reflux disease) (Chronic) K21.9 Hypertension (Chronic) I10 Alcohol abuse (Chronic) F10.10 Allergies oxaprozin [From Daypro] Allergy (Verified 03/11/20 10:03) Hives Home Medications: Ambulatory Orders Medication Instructions Recorded Loratadine [Claritin] 10 mg PO DAILY 06/27/19 atenolol 50 mg tablet 50 mg PO QHS #90 tab 08/25/19 buspirone 7.5 mg tablet 7.5 mg PO BID #180 tab 08/25/19 lansoprazole 30 mg capsule,delayed 30 mg PO DAILY #90 cap 08/25/19 release trazodone 50 mg tablet 50 mg PO QHS #90 tab 08/25/19 albuterol sulfate 90 mcg/actuation 2 puff INHALATION 6XD PRN #8.5 g 01/27/20 aerosol inhaler venlafaxine 150 mg 150 mg PO DAILY #90 cap 03/06/20 capsule,extended release 24 hr Surgical History: Surgical History (Last Reviewed 03/11/20 @ 14:02 by DELON Do) History of knee surgery Z98.890 Rt knee 2012 History of shoulder surgery Z98.890 Rt shoulder 2002 Psychiatric History: Anxiety, Depression Lives: Spouse/ Significant Other Smoking Status: Never smoker Tobacco Use: Non-smoker Alcohol: Heavy Drugs: None - *Family History Paternal Family History: Family History (Last Reviewed 03/11/20 @ 13:43 by DELON Do) Other Anxiety Hypertension History Items: Heart Disease, - - Chronic alcohol disease/alcoholic hepatitis Maternal Family History: Family History (Last Reviewed 03/11/20 @ 13:43 by DELON Do) Other Anxiety Hypertension History Items: - - Alcohol abuse Review of Systems Constitutional: Reports: - - Generalized tremors. Denies: Chills, Fever, Weight Change HEENT: Denies: Head Aches, Sinus Congestion, Sinus Drainage Cardiovascular: Denies: Chest Pain, Palpitations Respiratory: Denies: Cough, Shortness of breath at rest, Sputum production Gastrointestinal: Denies: Abdominal Pain, Nausea, Vomiting Genitourinary: Denies: Dysuria Musculoskeletal: Denies: Joint Pain, Joint Tenderness Skin: Denies: Rash, Wounds Neurological: Denies: Numbness, Tingling, Focal weakness Psychiatric: Reports: Anxiety, Depression Hematologic/ Lymphatic: Denies: Easy Bruising, Easy Bleeding VTE Information - Inpt Only VTE Present on Admission: No VTE Mechan Device Prophylaxis: None VTE Pharm Prophylaxis ordered?: No Reason prophylaxis not ordered:: Treatment Not Indicated Patient Problems: Active and Suspected Problems (Last Reviewed 01/27/20 @ 13:42 by Sadia Mobley) Alcohol withdrawal (Acute) - Physical Exam Vitals/I&O's: Vital Signs Temp Pulse Resp BP Pulse Ox 99 F 100 15 169/101 H 96 03/11/20 12:57 03/11/20 13:14 03/11/20 12:57 03/11/20 12:57 03/11/20 12:57 Oxygen Delivery Method Room Air Weight: 219 lb 2.232 oz Body Mass Index (BMI) 35.9 Intake and Output for Last 24 Hours 03/09/20 03/10/20 03/11/20 23:59 23:59 23:59 Intake Total 999 / 999 Balance 1000 / 999 General: Alert, Oriented x3, Cooperative HEENT: Atraumatic, PERRLA, EOMI, Normocephalic Neck: Supple, No JVD, Negative Carotid Bruits Lungs: Clear to auscultation, Normal air movement Cardiovascular: Regular rate, Regular Rhythm, Normal S1, Normal S2, No murmurs Abdomen: Bowel Sounds Present, Soft, Non Tender, Non-Distended Extremities: No clubbing, No cyanosis, No edema, Capillary Refill Less than 3 Seconds Skin: No rashes, No breakdown Musculoskeletal: No Tenderness to Palpation of Joints or Extremities Neurological: Cranial nerves II-XII grossly intact, Neuro grossly intact Psych/Mental Status: Normal Affect, Appropriate Laboratory Results 03/11/20 10:30: WBC 8.0, RBC 4.26 L, Hgb 13.6, Hct 38.5 L, MCV 90.4, MCH 31.9, MCHC 35.3, RDW Std Deviation 49.5 H, RDW Coeff of Lalitha 15.0 H, Plt Count 164, MPV 9.9, Immature Gran % (Auto) 0.400, Neut % (Auto) 85.4 H, Lymph % (Auto) 7.8 L, [place] % (Auto) 5.8, Eos % (Auto) 0.1, Baso % (Auto) 0.5, Absolute Neuts (auto) 6.8, Absolute Lymphs (auto) 0.62 L, Nucleated RBC % 0 03/11/20 10:30: Sodium 137, Potassium 3.1 L, Chloride 103, Carbon Dioxide 20.0 L , Anion Gap 14, BUN 13, Creatinine 1.02, Estim Creat Clear Calc 85.42, Est GFR (MDRD) Af Amer 105, Est GFR (MDRD) Non-Af 87, BUN/Creatinine Ratio 12.7, Glucose 110 H, Calcium 8.7 03/11/20 10:30: Ethyl Alcohol 35.0 03/11/20 10:30: Urine Opiates Screen NEGATIVE, Urine Methadone Screen NEGATIVE, Ur Barbiturates Screen NEGATIVE, Ur Phencyclidine Scrn NEGATIVE, Ur Amphetamines Screen NEGATIVE, U Methamphetamin-MDMA POSITIVE H, U Benzodiazepines Scrn NEGATIVE, Urine Cocaine Screen NEGATIVE, U Cannabinoids Screen NEGATIVE, Ur Drug Screen Comment 03/11/20 10:30: Urine Color Yellow, Urine Clarity Clear, Urine pH 6.0, Ur Specific [place] 1.020, Urine Protein 30 H, Urine Glucose (UA) Normal, Urine Ketones 15 H, Urine Occult Blood 10 H, Urine Nitrite Negative, Urine Bilirubin Negative, Urine Urobilinogen Normal, Ur Leukocyte Esterase Negative, Urine RBC 0 SEEN, Urine WBC 0 SEEN, Ur Squamous Epith Cells 0 SEEN, Urine Bacteria 0 SEEN, Urine Mucus 1+ Current Medications Acetaminophen (Tylenol) 650 mg PO Q6H PRN PRN PRN Reason: Temp > 100.4 F Atenolol (Tenormin (Beta Evelyn)) 50 mg PO QHS [facility] Buspirone HCl (Buspar) 7.5 mg PO BID [facility] Dicyclomine HCl (Bentyl) 20 mg PO Q6H PRN PRN PRN Reason: abdominal discomfort Folic Acid (Folic Acid) 1 mg PO DAILY@0800 [facility] Ibuprofen (Motrin) 600 mg PO Q8H PRN PRN PRN Reason: Pain Score 1-10/10 Loperamide HCl (Imodium) 2 mg PO Q4H PRN PRN PRN Reason: LOOSE STOOLS Lorazepam (Ativan) 2 mg IV Q2H PRN PRN; Protocol PRN Reason: CIWA score > 8 but <15 Last Admin: 03/11/20 12:37 Dose: 2 mg Documented by: Lorazepam (Ativan) 2 mg IV UD PRN; Protocol PRN Reason: CIWA score >/=15. Ondansetron HCl (Zofran) 8 mg PO Q8H PRN PRN PRN Reason: NAUSEA Pantoprazole Sodium (Protonix) 40 mg PO DAILY [facility] Phenobarbital (Phenobarbital) 97.2 mg PO Q4H [facility]; Taper Stop: 03/15/20 17:29 Last Admin: 03/11/20 12:36 Dose: 97.2 mg Documented by: Sodium Chloride () 10 - 40 ml IV UD PRN PRN Reason: SALINE FLUSH Thiamine HCl (Vitamin B1) 100 mg PO DAILYCM [facility] Trazodone HCl (Desyrel) 50 mg PO QHS [facility] Trazodone HCl (Desyrel) 100 mg PO QHS PRN PRN Reason: INSOMNIA Venlafaxine HCl (Effexor Xr) 150 mg PO DAILY [facility] Assessment/Plan All Active Problems (Last Reviewed 01/27/20 @ 13:42 by Sadia Mobley) Alcohol withdrawal (Acute) Gallstone (Resolved) 1. Acute alcohol withdrawal on chronic alcohol abuse-phenobarbital taper, CIWA/Ativan protocol. PRN regimen for somatic complaints. Consult [facility]. 2. Hypertension-elevated on admission. Continue atenolol. PRN hydralazine for systolic blood pressure greater than 160. 3. Anxiety/depression-continue venlafaxine, buspirone, trazodone 4. GERD-continue PPI. DVT prophylaxis-not indicated, low risk This patient was seen by DELON Do under the supervision of Dr. Cornelius.
--- NOTE | 2020-03-11 14:32 | NURSING ---
this RN spoke with Kb the outpatient therapist with [facility] and notified her of pt. [phone] is the number to reach Kb if needed.
[2020-03-11] MEDS: hydrALAZINE 20 MG/ML Vial 10 MG IV (19:57)
[2020-03-11] MEDS: Ibuprofen 600 MG Tablet PO (19:57)
[2020-03-11] MEDS: traZODone 50 MG Tablet PO (21:30)
[2020-03-11] MEDS: Dicyclomine 10 MG Capsule 20 MG PO (21:36)
[2020-03-11] MEDS: busPIRone 5 MG Tablet 7.5 MG PO (21:37)
[2020-03-12] VITALS (14 sets, daily range): BP systolic 153–188; BP diastolic 87–126; PULSE 72–113; RESP 16–18; TEMP 36.4–37.1; O2SAT 95–98
[2020-03-12] MEDS: Phenobarbital 32.4 MG Tablet 64.8 MG PO ×6 (00:18→20:41)
[2020-03-12] MEDS: hydrALAZINE 20 MG/ML Vial 10 MG IV ×3 (04:38→17:12)
[2020-03-12 08:35] LABS: Anion Gap 6 (5-15); BUN 10 mg/dL (7-18); BUN/Creat Ratio 10.5 RATIO (10-20); Calcium,Total 8.9 mg/dL (8.5-10.1); Chloride 103 mmol/L (98-107); Creatinine, Serum 0.95 mg/dL (0.70-1.30); EST Glomerular Filtration Rate 94 mL/min (>60); Est Glom Filt Rate - Afr Amer 114 mL/min (>60); Estimated Creatinine Clearance 91.71 ml/min; Glucose 123 mg/dL (74-106); Magnesium 1.8 mg/dL (1.6-2.6); Potassium 3.5 mmol/L (3.5-5.1); Sodium Level 135 mmol/L (136-145)
[2020-03-12] MEDS: Folic Acid 1 MG Tablet PO (09:08)
[2020-03-12] MEDS: Venlafaxine XR 150 MG Capsule PO (09:08)
[2020-03-12] MEDS: Pantoprazole Sodium 40 MG Tablet PO (09:08)
[2020-03-12] MEDS: Thiamine Hydrochloride 100 MG Tablet PO (09:08)
[2020-03-12] MEDS: 0.9% Saline Lock 10 ML Syringe IV ×2 (09:13→17:13)
--- NOTE | 2020-03-12 09:38 | CASEMGMT ---
AGAPITO called Dariana at [facility] and left her a voice mail letting her know about patient. Estelle MITCHELL MSW
--- NOTE | 2020-03-12 10:19 | PCM.PROGNOTE ---
<Jessenia Fragoso - Last Filed: 03/12/20 10:40> Patient Problems: Active and Suspected Problems (Last Reviewed 01/27/20 @ 13:42 by Sadia Mobley) Alcohol withdrawal (Acute) Subjective: Patient seen and examined. Tearful, states he misses his family. Tremors improved. Reports diarrhea. Denies nausea, vomiting. - Physical Exam Vitals/I&O's: Vital Signs Temp Pulse Resp BP Pulse Ox 98.5 F 89 16 156/92 H 95 03/12/20 08:57 03/12/20 08:57 03/12/20 08:57 03/12/20 08:57 03/12/20 08:57 Oxygen Delivery Method Room Air Weight: 219 lb 2.232 oz Body Mass Index (BMI) 35.9 Intake and Output for Last 24 Hours 03/10/20 03/11/20 03/12/20 23:59 23:59 23:59 Intake Total 2099 Balance 2099 General: Alert, Oriented x3, Cooperative HEENT: Atraumatic, PERRLA, EOMI, Normocephalic Neck: Supple, No JVD, Negative Carotid Bruits Lungs: Clear to auscultation, Normal air movement Cardiovascular: Regular rate, No murmurs Abdomen: Bowel Sounds Present, Soft, Non Tender, Non-Distended, Obese Extremities: No clubbing, No cyanosis, No edema, Capillary Refill Less than 3 Seconds Skin: No rashes, No breakdown Musculoskeletal: No Tenderness to Palpation of Joints or Extremities Neurological: Cranial nerves II-XII grossly intact, Neuro grossly intact Psych/Mental Status: Normal Affect, Appropriate Laboratory Results 03/11/20 10:30: WBC 8.0, RBC 4.26 L, Hgb 13.6, Hct 38.5 L, MCV 90.4, MCH 31.9, MCHC 35.3, RDW Std Deviation 49.5 H, RDW Coeff of Lalitha 15.0 H, Plt Count 164, MPV 9.9, Immature Gran % (Auto) 0.400, Neut % (Auto) 85.4 H, Lymph % (Auto) 7.8 L, [place] % (Auto) 5.8, Eos % (Auto) 0.1, Baso % (Auto) 0.5, Absolute Neuts (auto) 6.8, Absolute Lymphs (auto) 0.62 L, Nucleated RBC % 0 03/11/20 10:30: Sodium 137, Potassium 3.1 L, Chloride 103, Carbon Dioxide 20.0 L, Anion Gap 14, BUN 13, Creatinine 1.02, Estim Creat Clear Calc 85.42, Est GFR (MDRD) Af Amer 105, Est GFR (MDRD) Non-Af 87, BUN/Creatinine Ratio 12.7, Glucose 110 H, Calcium 8.7 03/11/20 10:30: Ethyl Alcohol 35.0 03/11/20 10:30: Urine Opiates Screen NEGATIVE, Urine Methadone Screen NEGATIVE, Ur Barbiturates Screen NEGATIVE, Ur Phencyclidine Scrn NEGATIVE, Ur Amphetamines Screen NEGATIVE, U Methamphetamin-MDMA POSITIVE H, U Benzodiazepines Scrn NEGATIVE, Urine Cocaine Screen NEGATIVE, U Cannabinoids Screen NEGATIVE, Ur Drug Screen Comment 03/11/20 10:30: Urine Color Yellow, Urine Clarity Clear, Urine pH 6.0, Ur Specific [place] 1.020, Urine Protein 30 H, Urine Glucose (UA) Normal, Urine Ketones 15 H, Urine Occult Blood 10 H, Urine Nitrite Negative, Urine Bilirubin Negative, Urine Urobilinogen Normal, Ur Leukocyte Esterase Negative, Urine RBC 0 SEEN, Urine WBC 0 SEEN, Ur Squamous Epith Cells 0 SEEN, Urine Bacteria 0 SEEN, Urine Mucus 1+ 03/12/20 08:00: Sodium 135 L, Potassium 3.5, Chloride 103, Carbon Dioxide 26.0, Anion Gap 6, BUN 10, Creatinine 0.95, Estim Creat Clear Calc 91.71, Est GFR (MDRD) Af Amer 114, Est GFR (MDRD) Non-Af 94, BUN/Creatinine Ratio 10.5, Glucose 123 H, Calcium 8.9, Magnesium 1.8 Current Medications Acetaminophen (Tylenol) 650 mg PO Q6H PRN PRN PRN Reason: Temp > 100.4 F Atenolol (Tenormin (Beta Evelyn)) 100 mg PO QHS [facility] Buspirone HCl (Buspar) 7.5 mg PO BID [facility] Last Admin: 03/11/20 21:37 Dose: 7.5 mg Documented by: Dicyclomine HCl (Bentyl) 20 mg PO Q6H PRN PRN PRN Reason: abdominal discomfort Last Admin: 03/11/20 21:36 Dose: 20 mg Documented by: Folic Acid (Folic Acid) 1 mg PO DAILY@0800 [facility] Last Admin: 03/12/20 09:08 Dose: 1 mg Documented by: Hydralazine HCl (Apresoline Iv) 10 mg IV Q4H PRN PRN PRN Reason: BLOOD PRESSURE Last Admin: 03/12/20 04:38 Dose: 10 mg Documented by: Magnesium Sulfate 2 gm/ Sodium (Chloride) 104 mls @ 52 mls/hr IV X1 ONE Stop: 03/12/20 11:59 Ibuprofen (Motrin) 600 mg PO Q8H PRN PRN PRN Reason: Pain Score 1-10/10 Last Admin: 03/11/20 19:57 Dose: 600 mg Documented by: Loperamide HCl (Imodium) 2 mg PO Q4H PRN PRN PRN Reason: LOOSE STOOLS Lorazepam (Ativan) 2 mg IV Q2H PRN PRN; Protocol PRN Reason: CIWA score > 8 but <15 Last Admin: 03/11/20 12:37 Dose: 2 mg Documented by: Lorazepam (Ativan) 2 mg IV UD PRN; Protocol PRN Reason: CIWA score >/=15. Ondansetron HCl (Zofran) 8 mg PO Q8H PRN PRN PRN Reason: NAUSEA Pantoprazole Sodium (Protonix) 40 mg PO DAILY [facility] Last Admin: 03/12/20 09:08 Dose: 40 mg Documented by: Phenobarbital (Phenobarbital) 97.2 mg PO Q4H [facility]; Taper Stop: 03/15/20 17:29 Last Admin: 03/12/20 09:08 Dose: 97.2 mg Documented by: Sodium Chloride () 10 - 40 ml IV UD PRN PRN Reason: SALINE FLUSH Last Admin: 03/12/20 09:13 Dose: 10 ml Documented by: [facility] ([facility]amin [facility]) [facility] Last Admin: 03/12/20 09:08 Dose: 100 mg Documented by: Trazodone HCl (Desyrel) 50 mg PO QHS [facility] Last Admin: 03/11/20 21:30 Dose: 50 mg Documented by: Venlafaxine HCl (Effexor Xr) 150 mg PO DAILY [facility] Last Admin: 03/12/20 09:08 Dose: 150 mg Documented by: Medical Necessity - Tobacco Use Smoking Status: Never smoker Tobacco Use: Non-smoker Assessment/Plan All Active Problems (Last Reviewed 01/27/20 @ 13:42 by Sadia Mobley) Alcohol withdrawal (Acute) Gallstone (Resolved) 1. Acute alcohol withdrawal on chronic alcohol abuse-phenobarbital taper, CIWA/Ativan protocol. PRN regimen for somatic complaints. Consult [facility]. 2. Hypertension-elevated on admission. Continue atenolol. PRN hydralazine for systolic blood pressure greater than 160. Patient reports when he is not using alcohol, atenolol is sufficient in controlling his blood pressure. Continue to monitor. 3. Anxiety/depression-continue venlafaxine, buspirone, trazodone 4. GERD-continue PPI. DVT prophylaxis-not indicated, low risk This patient was seen by DELON Do under the supervision of Dr. Goyal. <Chanel Goyal - Last Filed: 03/12/20 11:27> - Physical Exam Vitals/I&O's: Vital Signs Temp Pulse Resp BP Pulse Ox 98.5 F 89 16 156/92 H 95 03/12/20 08:57 03/12/20 08:57 03/12/20 08:57 03/12/20 08:57 03/12/20 08:57 Oxygen Delivery Method Room Air Weight: 99.4 kg Body Mass Index (BMI) 35.9 Intake and Output for Last 24 Hours 03/10/20 03/11/20 03/12/20 23:59 23:59 23:59 Intake Total 2099 2.6 / 2.6 Balance 2099 2.6 / 2.6 Laboratory Results 03/12/20 08:00: Sodium 135 L, Potassium 3.5, Chloride 103, Carbon Dioxide 26.0, Anion Gap 6, BUN 10, Creatinine 0.95, Estim Creat Clear Calc 91.71, Est GFR (MDRD) Af Amer 114, Est GFR (MDRD) Non-Af 94, BUN/Creatinine Ratio 10.5, Glucose 123 H, Calcium 8.9, Magnesium 1.8 Current Medications Acetaminophen (Tylenol) 650 mg PO Q6H PRN PRN PRN Reason: Temp > 100.4 F Atenolol (Tenormin (Beta Evelyn)) 100 mg PO QHS [facility] Buspirone HCl (Buspar) 7.5 mg PO BID [facility] Last Admin: 03/12/20 10:44 Dose: 7.5 mg Documented by: Dicyclomine HCl (Bentyl) 20 mg PO Q6H PRN PRN PRN Reason: abdominal discomfort Last Admin: 03/11/20 21:36 Dose: 20 mg Documented by: Folic Acid (Folic Acid) 1 mg PO DAILY@0800 [facility] Last Admin: 03/12/20 09:08 Dose: 1 mg Documented by: Hydralazine HCl (Apresoline Iv) 10 mg IV Q4H PRN PRN PRN Reason: BLOOD PRESSURE Last Admin: 03/12/20 04:38 Dose: 10 mg Documented by: Magnesium Sulfate 2 gm/ Sodium (Chloride) 104 mls @ 52 mls/hr IV X1 ONE Stop: 03/12/20 11:59 Last Infusion: 03/12/20 11:00 Dose: 0 mls/hr Documented by: Ibuprofen (Motrin) 600 mg PO Q8H PRN PRN PRN Reason: Pain Score 1-10/10 Last Admin: 03/11/20 19:57 Dose: 600 mg Documented by: Loperamide HCl (Imodium) 2 mg PO Q4H PRN PRN PRN Reason: LOOSE STOOLS Lorazepam (Ativan) 2 mg IV Q2H PRN PRN; Protocol PRN Reason: CIWA score > 8 but <15 Last Admin: 03/11/20 12:37 Dose: 2 mg Documented by: Lorazepam (Ativan) 2 mg IV UD PRN; Protocol PRN Reason: CIWA score >/=15. Ondansetron HCl (Zofran) 8 mg PO Q8H PRN PRN PRN Reason: NAUSEA Pantoprazole Sodium (Protonix) 40 mg PO DAILY [facility] Last Admin: 03/12/20 09:08 Dose: 40 mg Documented by: Phenobarbital (Phenobarbital) 97.2 mg PO Q4H [facility]; Taper Stop: 03/15/20 17:29 Last Admin: 03/12/20 09:08 Dose: 97.2 mg Documented by: Sodium Chloride () 10 - 40 ml IV UD PRN PRN Reason: SALINE FLUSH Last Admin: 03/12/20 09:13 Dose: 10 ml Documented by: Thiamine HCl ([facility]itamin B1) [facility] Last Admin: 03/12/20 09:08 Dose: 100 mg Documented by: Trazodone HCl (Desyrel) 50 mg PO QHS [facility] Last Admin: 03/11/20 21:30 Dose: 50 mg Documented by: Venlafaxine HCl (Effexor Xr) 150 mg PO DAILY [facility] Last Admin: 03/12/20 09:08 Dose: 150 mg Documented by: Assessment/Plan This patient was seen in conjunction with Jessenia Fragoso NP. I have independently interviewed and examined the patient and reviewed pertinent historical, laboratory, and other data. Please refer to her note for patient's presentation, findings, and recommendations. 39-year-old male past medical history of alcohol use disorder who comes in for medical stabilization for acute alcohol withdrawal. Patient was seen and examined. He denied any new complaints. He feels improved. No acute events overnight. Vitals were reviewed -BP is uncontrolled, 156/92 Physical Exam: Gen: Comfortable, obese, not pale, not jaundiced, alert oriented x3 CVS:HS I +II, regular, no murmurs RESP: CTA GI: BS present and normal, nontender, no palpable organs EXT:No edema Labs reviewed: K 3.5, Mg 1.8 ASSESSMENT: 1. Hypomagnesemia, replaced 2. Hypokalemia, improved 3. Acute alcohol withdrawal 4. Uncontrolled hypertension 5. Anxiety/depression 6. GERD Meds reviewed Plan: Replace magnesium Potassium 40 mEq p.o. x1 Switch from pantoprazole to famotidine Continue on the phenobarb taper Continue on atenolol and hydralazine as needed for blood pressure Recheck blood work in a.m. Inpatient E&M: 04121 [facility] H[facility] L2
[2020-03-12] MEDS: busPIRone 5 MG Tablet 7.5 MG PO ×2 (10:44→22:40)
--- NOTE | 2020-03-12 13:23 | ADDICTION ---
This development writer met with patient in his room. He was alert and oriented x4 and participated appropriately throughout session. This development writer completed a full biopsychosocial assessment (to be faxed to [facility] upon documentation completion) and an ASAM assessment (see below). Patient meets DSM 5 diagnostic criteria for Alcohol use disorder, severe. Patient appears appropriate for medical withdrawal management per his report of symptoms and met ASAM criteria. He does not appear clinically appropriate for Residential Treatment and has been referred to [facility] for outpatient treatment. He reports motivation to engage in mutual aid meetings as well. This development writer will provide a list of AA meetings in the [facility] per his request. This development writer will coordinate with [facility] social worker aide, Estelle, to ensure continuity of care following patients discharge from [facility]. Patient reports that he is amiable to the recommendation of individual treatment and AA meetings. Patient signed KADY for [facility]. This development writer is also referring patient for MAT services for Vivitrol upon discharge from medical withdrawal management. ASAM LOC Recommended: 4.0 Medically Managed Intensive Inpatient Services Dimension 1: Acute Intoxication and Withdrawal Potential Patient reports that he presented to [facility] on 03/11[facility] with symptoms of alcohol withdrawal including nausea, vomiting, severe shakiness and high blood pressure. He reports that he is currently engaged in medical withdrawal management and has had a reduction in symptoms and is taking Phenobarbital to assist with withdrawal management. Dimension 2: Biomedical Conditions and Concerns Patient reports a history of high blood pressure which has been exacerbated by ongoing, problematic alcohol abuse. Patient's chart indicates abnormal liver tests. Patient reports no other significant barriers to physical health at this time. Patient's medical barriers may be treated concurrently with AOD concerns. Dimension 3: Emotional, Behavioral, Cognitive Concerns/Conditions Patient reports ongoing symptoms of depression and anxiety to be treated concurrently with AoD concerns. Patient did not present with behavioral concerns and was oriented x4 and appears to be of average intelligence. Patient reports a desire to get back to where I was when I was sober. I was happy then. Dimension 4: Readiness for Change Patient reports a desire to engage in AoD treatment with [facility] and has verbally agreed to engage in Outpatient treatment immediately following discharge from medical withdrawal management. This development writer will collaborate with client, [facility] SW and [facility] for continuity of care and warm handoff. Patient appears to be in the preparation stage of change as evidenced by his identification of problematic behaviors with verbal agreement to participate in treatment to engage in active modification of behaviors to support sobriety-based lifestyle. Patient also reports willingness to engage in mutual aid meetings, obtain a sponsor and work the 12 steps. Dimension 5: Relapse, Continued Use or Continued Problem Potential Patient is at a moderate risk of relapse based on his recent history of use, ongoing EBCC/C and report of long-term use history. He will likely return to problematic alcohol use if he does not complete 4.0 LOC and engage in treatment immediately following discharge from [facility]. Dimension 6: Recovery/Living Environment Patient reports that his is supportive of his recovery. He reports catholic affiliation and participation. He states that his family is supportive of recovery. He reports that he plans to engage in AoD/ MH treatment and mutual aid following discharge from [facility].
[2020-03-12] MEDS: Ibuprofen 600 MG Tablet PO (13:32)
--- NOTE | 2020-03-12 16:23 | CHAPLAIN ---
Type of Pastoral Visit _x__ Initial Visit ___ Follow-up Visit ___ On-call Visit ___ General Patient Visit ___ Spiritual Assessment ___ Family Conference ___ Bereavement ___ Rapid Response ___ Code Blue ___ Other (describe below) Pastoral Care Referral From _x__ Patient ___ Family ___ Nurse ___ Physician ___ Ice Cream Man ___ Cylinder Devalver ___ Other (describe below) Sacrament/Intervention _x__ Active listening ___ Anointing ___ Zoroastrianism ___ Bereavement ___ Communion ___ Julieta exploration ___ _x__ Life review _x__ Prayer ___ Reconciliation ___ Sacrament of Sick _x__ Supportive presence ___ Wedding ___ Other (describe below) Pastoral Comments patient gave some life background and describes great disappointment in himself at not achieving continual sobriety and disappointment for family relationships; pt has desire to be a good parent to three young children; pt states he has support from spouse and other family members; pt states he worries about what people think of him because he has relapsed; pt says that he has a spiritual heritage but is not current with spiritual support or connection; pt says he has agreed to counseling with [facility]
[2020-03-12] MEDS: Atenolol 100 MG Tablet PO (18:03)
[2020-03-12] MEDS: Famotidine 20 MG Tablet PO (22:40)
[2020-03-12] MEDS: traZODone 50 MG Tablet PO (22:40)
[2020-03-13] VITALS (11 sets, daily range): BP systolic 143–162; BP diastolic 84–108; PULSE 65–96; RESP 18–20; TEMP 36.6–36.9; O2SAT 95–98
[2020-03-13] MEDS: Phenobarbital 32.4 MG Tablet 64.8 MG PO ×3 (00:53→08:34)
[2020-03-13] MEDS: Ibuprofen 600 MG Tablet PO ×2 (04:52→14:20)
[2020-03-13] MEDS: hydrALAZINE 20 MG/ML Vial 10 MG IV (04:52)
[2020-03-13] MEDS: 0.9% Saline Lock 10 ML Syringe IV ×2 (04:53→18:05)
[2020-03-13 07:47] LABS: Anion Gap 6 (5-15); BUN 10 mg/dL (7-18); BUN/Creat Ratio 11.5 RATIO (10-20); Calcium,Total 8.6 mg/dL (8.5-10.1); Chloride 101 mmol/L (98-107); Creatinine, Serum 0.87 mg/dL (0.70-1.30); EST Glomerular Filtration Rate 104 mL/min (>60); Est Glom Filt Rate - Afr Amer 126 mL/min (>60); Estimated Creatinine Clearance 100.14 ml/min; Glucose 98 mg/dL (74-106); Magnesium 2.2 mg/dL (1.6-2.6); Potassium 4.1 mmol/L (3.5-5.1); Sodium Level 135 mmol/L (136-145)
[2020-03-13] MEDS: Folic Acid 1 MG Tablet PO (08:20)
[2020-03-13] MEDS: busPIRone 5 MG Tablet 7.5 MG PO ×2 (08:20→21:49)
[2020-03-13] MEDS: Famotidine 20 MG Tablet PO ×2 (08:20→18:04)
[2020-03-13] MEDS: Venlafaxine XR 150 MG Capsule PO (08:21)
[2020-03-13] MEDS: Thiamine Hydrochloride 100 MG Tablet PO (08:22)
[2020-03-13] MEDS: Lisinopril 20 MG Tablet PO (08:34)
--- NOTE | 2020-03-13 08:54 | NURSING ---
Assisted pt in ordering breakfast at this time as there is no phone in his room.
--- NOTE | 2020-03-13 09:36 | CASEMGMT ---
Addendum entered by Estelle Sams 03/13/20 11:08: Patient will be staying today. AGAPITO called Dariana at [facility] and let her know this information. She will schedule an appt for him tomorrow. She will call AGAPITO back with this appt. Estelle ROMERO Original Note: There was discussion about possibly discharging patient today. AGAPITO called Dariana at [facility] and left her a voice mail letting her know this information. Estelle ROMERO
--- NOTE | 2020-03-13 11:42 | CASEMGMT ---
AGAPITO spoke with Dariana at [facility] and she scheduled an appt for patient for tomorrow at noon. She will be in to let him know this information. Estelle MITCHELL MSW
--- NOTE | 2020-03-13 12:16 | PCM.PROGNOTE ---
<Jessenia Fragoso - Last Filed: 03/13/20 12:21> Patient Problems: Active and Suspected Problems (Last Reviewed 01/27/20 @ 13:42 by Sadia Mobley) Alcohol withdrawal (Acute) Subjective: Patient seen and examined. Denies withdrawal symptoms. Requesting to go home today if possible. Did discuss with Dr. Butler who recommends decreasing phenobarbital taper and monitoring for another 24 hours prior to discharge home. [facility] - Physical Exam Vitals/I&O's: Vital Signs Temp Pulse Resp BP Pulse Ox 97.9 F 73 18 144/98 H 97 03/13/20 08:51 03/13/20 08:51 03/13/20 08:51 03/13/20 08:51 03/13/20 08:51 Oxygen Delivery Method Room Air Weight: 219 lb 2.232 oz Body Mass Index (BMI) 35.9 Intake and Output for Last 24 Hours 03/11/20 03/12/20 03/13/20 23:59 23:59 23:59 Intake Total 2099 1224.0 / 2024.0 1600 / 1600 Balance 2099 1224.0 / 2024.0 1600 / 1600 General: Alert, Oriented x3, Cooperative HEENT: Atraumatic, PERRLA, EOMI, Normocephalic Neck: Supple, No JVD, Negative Carotid Bruits Lungs: Clear to auscultation, Normal air movement Cardiovascular: Regular rate, Regular Rhythm, Normal S1, Normal S2, No murmurs Abdomen: Bowel Sounds Present, Soft, Non Tender, Non-Distended, Obese Extremities: No clubbing, No cyanosis, No edema, Capillary Refill Less than 3 Seconds Skin: No rashes, No breakdown Musculoskeletal: No Tenderness to Palpation of Joints or Extremities Neurological: Cranial nerves II-XII grossly intact, Neuro grossly intact Psych/Mental Status: Normal Affect, Appropriate Laboratory Results 03/13/20 06:30: Sodium 135 L, Potassium 4.1, Chloride 101, Carbon Dioxide 28.0, Anion Gap 6, BUN 10, Creatinine 0.87, Estim Creat Clear Calc 100.14, Est GFR (MDRD) Af Amer 126, Est GFR (MDRD) Non-Af 104, BUN/Creatinine Ratio 11.5, Glucose 98, Calcium 8.6, Magnesium 2.2 Current Medications Acetaminophen (Tylenol) 650 mg PO Q6H PRN PRN PRN Reason: Temp > 100.4 F Atenolol (Tenormin (Beta Evelyn)) 100 mg PO QHS [facility] Last Admin: 03/12/20 18:03 Dose: 100 mg Documented by: Buspirone HCl (Buspar) 7.5 mg PO BID [facility] Last Admin: 03/13/20 08:20 Dose: 7.5 mg Documented by: Dicyclomine HCl (Bentyl) 20 mg PO Q6H PRN PRN PRN Reason: abdominal discomfort Last Admin: 03/11/20 21:36 Dose: 20 mg Documented by: Famotidine (Pepcid) 20 mg PO BID [facility] Last Admin: 03/13/20 08:20 Dose: 20 mg Documented by: Folic Acid (Folic Acid) 1 mg PO DAILY@0800 [facility] Last Admin: 03/13/20 08:20 Dose: 1 mg Documented by: Hydralazine HCl (Apresoline Iv) 10 mg IV Q4H PRN PRN PRN Reason: BLOOD PRESSURE Last Admin: 03/13/20 04:52 Dose: 10 mg Documented by: Ibuprofen (Motrin) 600 mg PO Q8H PRN PRN PRN Reason: Pain Score 1-10/10 Last Admin: 03/13/20 04:52 Dose: 600 mg Documented by: Lisinopril (Zestril) 20 mg PO DAILY [facility] Last Admin: 03/13/20 08:34 Dose: 20 mg Documented by: Loperamide HCl (Imodium) 2 mg PO Q4H PRN PRN PRN Reason: LOOSE STOOLS Lorazepam (Ativan) 2 mg IV Q2H PRN PRN; Protocol PRN Reason: CIWA score > 8 but <15 Last Admin: 03/11/20 12:37 Dose: 2 mg Documented by: Lorazepam (Ativan) 2 mg IV UD PRN; Protocol PRN Reason: CIWA score >/=15. Ondansetron HCl (Zofran) 8 mg PO Q8H PRN PRN PRN Reason: NAUSEA Phenobarbital (Phenobarbital) 32.4 mg PO TID [facility] Sodium Chloride () 10 - 40 ml IV UD PRN PRN Reason: SALINE FLUSH Last Admin: 03/13/20 04:53 Dose: 10 ml Documented by: [facility]) [facility] Last Admin: 03/13/20 08:22 Dose: 100 mg Documented by: Trazodone HCl (Desyrel) 50 mg PO QHS [facility] Last Admin: 03/12/20 22:40 Dose: 50 mg Documented by: Venlafaxine HCl (Effexor Xr) 150 mg PO DAILY [facility] Last Admin: 03/13/20 08:21 Dose: 150 mg Documented by: Medical Necessity - Tobacco Use Smoking Status: Never smoker Tobacco Use: Non-smoker Assessment/Plan All Active Problems (Last Reviewed 01/27/20 @ 13:42 by Sadia Mobley) Alcohol withdrawal (Acute) Gallstone (Resolved) 1. Acute alcohol withdrawal on chronic alcohol abuse-phenobarbital taper, CIWA/Ativan protocol. PRN regimen for somatic complaints. [facility] following. Patient has counseling appointment tomorrow at noon. Reduce phenobarbital to 32.4 mg 3 times daily and monitor over the next 24 hours. 2. Hypertension-elevated on admission. Continue home atenolol. PRN hydralazine for systolic blood pressure greater than 160. Patient reports when he is not using alcohol, atenolol is sufficient in controlling his blood pressure. Lisinopril 20 mg daily added given continued elevated blood pressure. Home atenolol increased to 100 mg p.o. nightly as well. 3. Anxiety/depression-continue venlafaxine, buspirone, trazodone 4. GERD-continue PPI. DVT prophylaxis-not indicated, low risk This patient was seen by DELON Do under the supervision of Dr. Goyal. <Chanel Goyal - Last Filed: 03/13/20 13:54> - Physical Exam Vitals/I&O's: Vital Signs Temp Pulse Resp BP Pulse Ox 97.9 F 96 20 H 146/93 H 98 03/13/20 12:39 03/13/20 12:39 03/13/20 12:39 03/13/20 12:39 03/13/20 12:39 Oxygen Delivery Method Room Air Weight: 99.4 kg Body Mass Index (BMI) 35.9 Intake and Output for Last 24 Hours 03/11/20 03/12/20 03/13/20 23:59 23:59 23:59 Intake Total 2099 1224.0 / 2023.0 1600 / 1600 Balance 2099 1224.0 / 2023.0 1600 / 1600 Laboratory Results 03/13/20 06:30: Sodium 135 L, Potassium 4.1, Chloride 101, Carbon Dioxide 28.0, Anion Gap 6, BUN 10, Creatinine 0.87, Estim Creat Clear Calc 100.14, Est GFR (MDRD) Af Amer 126, Est GFR (MDRD) Non-Af 104, BUN/Creatinine Ratio 11.5, Glucose 98, Calcium 8.6, Magnesium 2.2 Current Medications Acetaminophen (Tylenol) 650 mg PO Q6H PRN PRN PRN Reason: Temp > 100.4 F Atenolol (Tenormin (Beta Evelyn)) 100 mg PO QHS [facility] Last Admin: 03/12/20 18:03 Dose: 100 mg Documented by: Buspirone HCl (Buspar) 7.5 mg PO BID [facility] Last Admin: 03/13/20 08:20 Dose: 7.5 mg Documented by: Dicyclomine HCl (Bentyl) 20 mg PO Q6H PRN PRN PRN Reason: abdominal discomfort Last Admin: 03/11/20 21:36 Dose: 20 mg Documented by: Famotidine (Pepcid) 20 mg PO BID [facility] Last Admin: 03/13/20 08:20 Dose: 20 mg Documented by: Folic Acid (Folic Acid) 1 mg PO DAILY@0800 [facility] Last Admin: 03/13/20 08:20 Dose: 1 mg Documented by: Hydralazine HCl (Apresoline Iv) 10 mg IV Q4H PRN PRN PRN Reason: BLOOD PRESSURE Last Admin: 03/13/20 04:52 Dose: 10 mg Documented by: Ibuprofen (Motrin) 600 mg PO Q8H PRN PRN PRN Reason: Pain Score 1-10/10 Last Admin: 03/13/20 04:52 Dose: 600 mg Documented by: Lisinopril (Zestril) 20 mg PO DAILY [facility] Last Admin: 03/13/20 08:34 Dose: 20 mg Documented by: Loperamide HCl (Imodium) 2 mg PO Q4H PRN PRN PRN Reason: LOOSE STOOLS Lorazepam (Ativan) 2 mg IV Q2H PRN PRN; Protocol PRN Reason: CIWA score > 8 but <15 Last Admin: 03/11/20 12:37 Dose: 2 mg Documented by: Lorazepam (Ativan) 2 mg IV UD PRN; Protocol PRN Reason: CIWA score >/=15. Ondansetron HCl (Zofran) 8 mg PO Q8H PRN PRN PRN Reason: NAUSEA Phenobarbital (Phenobarbital) 32.4 mg PO TID [facility] Sodium Chloride () 10 - 40 ml IV UD PRN PRN Reason: SALINE FLUSH Last Admin: 03/13/20 04:53 Dose: 10 ml Documented by: Thiamine HCl (Vitamin B1) 100 mg PO DAILYCM [facility] Last Admin: 03/13/20 08:22 Dose: 100 mg Documented by: Trazodone HCl (Desyrel) 50 mg PO QHS [facility] Last Admin: 03/12/20 22:40 Dose: 50 mg Documented by: Venlafaxine HCl (Effexor Xr) 150 mg PO DAILY [facility] Last Admin: 03/13/20 08:21 Dose: 150 mg Documented by: Assessment/Plan This patient was seen in conjunction with Jessenia Fragoso SNOW GROOMER. I have independently interviewed and examined the patient and reviewed pertinent historical, laboratory, and other data. Please refer to her note for patient's presentation, findings, and recommendations. Patient was seen and examined. He denied any new complaints. He feels improved. No acute events overnight. Vitals were reviewed -BP is better of 146/93 Physical Exam: Gen: Comfortable, obese, not pale, not jaundiced, alert oriented x3 CVS:HS I +II, regular, no murmurs RESP: CTA GI: BS present and normal, nontender, no palpable organs EXT:No edema Labs reviewed: K 4.15, Mg 2.2 ASSESSMENT: 1. Hypomagnesemia, resolved 2. Hypokalemia, resolved 3. Acute alcohol withdrawal 4. Uncontrolled hypertension 5. Anxiety/depression 6. GERD Meds reviewed Plan: Continue on the decreased phenobarb taper Continue on atenolol and start hydralazine Inpatient E&M: [address] [facility] L[facility]
--- NOTE | 2020-03-13 14:16 | ADDICTION ---
This greeting card writer met with patient in his room. Patient informed this greeting card writer that he [facility] not [facility] and wants to go home. He reports that he is uncomfortable and wants to take a shower, sleep in my own bed and be with my family. This greeting card writer provided empathy, support and reflective listening to patient but also informed patient that there are protocol set in place for a reason and that his chances of a successful recovery would increase if he was willing to complete medical withdrawal management per medical advice. Patient did not confirm or deny that he will complete medical withdrawal management, however did confirm that he will attend his scheduled appointment at [facility] tomorrow (03.14.2020) at 12 pm. This greeting card writer encouraged patient to bring his to the session. This greeting card writer also began discussing medication assisted treatment options (Vivitrol) with patient to be discussed further during his appointment at [facility]. Patient appeared reluctant but did agree to appointment. This greeting card writer assessed patient's ASAM during this visit: ASAM LOC: 4.0 Medically Managed Intensive Inpatient Services Dimension1: Acute Intoxication and/or Withdrawal Potential Patient currently engaged in medical withdrawal management. Patient reports no current withdrawal symptoms. He reports past symptoms including agitation, shakiness, vomiting, nausea. Patient currently taking Phenobarbital to manage withdrawal symptoms. Dimension2: Biomedical Conditions and Complications Patient reports a history of hypertension. Patient's EHR indicates fatty infiltration of liver, abnormal LFT's and physical symptoms of alcohol withdrawal. Dimension3: Emotional, Behavioral, or Cognitive Conditions and Complications Patient is currently agitated and tearful. He reports that he is feeling defeated because I just want to go home. He appears to be oriented x4 and was able to effectively communicate wants and needs. Patient appears to be focusing on his wants instead of his needs. Dimension4: Readiness to Change Patient presents in the preparation stage of change, although appears to be having a difficult time maintaining his readiness to change. He can identify problem behaviors but does not appear to be relating problem behaviors to potential consequences. He reports interest in ongoing AOD treatment but is resistant to completing medical withdrawal management. Dimension5: Relapse, Continued Use or Continued Problem Potential Patient is at a high risk of relapse based incomplete medical withdrawal management episode, history of use and limited relapse prevention skills. He will likely continue using if he does not engage in AOD treatment following completion of medical withdrawal management. 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 He reports that he is not engaged in mutual aid but is interested in engaging in AA meetings upon discharge. He reports prior use in the home he is returning to.
[2020-03-13] MEDS: Phenobarbital 32.4 MG Tablet PO ×2 (14:17→21:48)
[2020-03-13] MEDS: traZODone 50 MG Tablet PO (21:50)
[2020-03-13] MEDS: Atenolol 100 MG Tablet PO (21:52)
[2020-03-14 03:12] VITALS: BP 140/84; PULSE 67; RESP 16; TEMP 37; O2SAT 97
[2020-03-14 06:24] VITALS: BP 136/78; PULSE 65; RESP 17; TEMP 36.7; O2SAT 97
[2020-03-14 06:25] VITALS: BP 136/78; PULSE 66; RESP 17; TEMP 36.7; O2SAT 97
[2020-03-14] MEDS: Phenobarbital 32.4 MG Tablet PO (06:26)
[2020-03-14 07:55] VITALS: BP 140/99; PULSE 69; RESP 18; TEMP 36.9; O2SAT 99
[2020-03-14] MEDS: Venlafaxine XR 150 MG Capsule PO (07:56)
[2020-03-14] MEDS: busPIRone 5 MG Tablet 7.5 MG PO (07:56)
[2020-03-14] MEDS: Thiamine Hydrochloride 100 MG Tablet PO (07:57)
[2020-03-14] MEDS: Famotidine 20 MG Tablet PO (07:57)
[2020-03-14] MEDS: Folic Acid 1 MG Tablet PO (07:57)
[2020-03-14] MEDS: Lisinopril 20 MG Tablet PO (07:58)
--- NOTE | 2020-03-14 09:21 | DCINST_ITS ---
- Discharge Diagnoses Current Active Problems: Current Active and Chronic Problems (Last Reviewed 01/27/20 @ 13:42 by Sadia Mobley) Hypertension (Chronic) Alcohol abuse (Chronic) Alcohol withdrawal (Acute) You will use the following diet at home:: Calorie/Carbohydrate Controlled (specify 1200, 1400, etc), Cardiac Discharge Activity: Return to Normal Activity Allergies/Adverse Reactions: Allergies oxaprozin [From Daypro] Allergy (Verified 03/11/20 10:03) Hives Medications to take at Discharge Loratadine [Claritin] 10 mg PO DAILY 06/27/19 buspirone 7.5 mg tablet 7.5 mg PO BID #180 tab 08/25/19 lansoprazole 30 mg capsule,delayed release 30 mg PO DAILY #90 cap 08/25/19 trazodone 50 mg tablet 50 mg PO QHS #90 tab 08/25/19 albuterol sulfate 90 mcg/actuation aerosol inhaler 2 puff INHALATION 6XD PRN #8.5 g 01/27/20 venlafaxine 150 mg capsule,extended release 24 hr 150 mg PO DAILY #90 cap 03/06/20 Atenolol [Tenormin (beta sue)] 100 mg PO QHS #30 tab 03/14/20 Lisinopril [Zestril] 20 mg PO DAILY #30 tab 03/14/20 The following prescriptions were given: Atenolol [Tenormin (beta sue)] 100 mg PO QHS #30 tab Transmission Status: Pending to [id number] Lisinopril [Zestril] 20 mg PO DAILY #30 tab Transmission Status: Pending to [facility]/pharmacy #[id number] Primary Care Physician: Jacquelin Quezada MD [Primary Care Provider] - Please follow up with your Primary Care Physician in: 1 Week Test Results: Test results from this visit will be discussed in further detail at your follow- up appointment, if applicable. Please Follow Up With: [facility] When: As scheduled Proposed Discharge Date: 03/14/20
--- NOTE | 2020-03-14 09:23 | PCM.DC.SUM ---
<Jessenia Fragoso - Last Filed: 03/14/20 09:28> Discharge Date and Diagnosis Date of Admission: 03/11/20 Date of Discharge: 03/14/20 - Primary Discharge Diagnosis Active and Suspected Problems (Last Reviewed 01/27/20 @ 13:42 by Sadia Mobley) 1. Acute alcohol withdrawal on chronic alcohol abuse 2. Hypertension, poorly controlled 3. Anxiety/depression 4. GERD - Secondary Discharge Diagnosis Chronic Problems (Last Reviewed 01/27/20 @ 13:42 by Sadia Mobley) GERD (gastroesophageal reflux disease) (Chronic) Hypertension (Chronic) Alcohol abuse (Chronic) Fatty infiltration of liver (Chronic) Obesity (Chronic) Abnormal LFTs (Chronic) Anxiety and depression (Chronic) Eosinophilic esophagitis (Chronic) Hospital Course and Treatment Imaging Results: Diagnostic Data Chest X-Ray 03/11/20 10:45 IMPRESSION: No evidence of acute cardiopulmonary process. Electronically Signed: Jersey Jefferson DO at 11:04 EDT , Service support , [facility] Operations: None Procedures: None Summary of Care Provided: The patient is a 39 year old M admitted 03/11/2020 due to alcohol withdrawal. 1. Acute alcohol withdrawal on chronic alcohol abuse-phenobarbital taper, CIWA/Ativan protocol during admission. [facility] following. Patient has counseling appointment at noon day of discharge, 03/14/2020. will attend appointment with patient and plan is to also be evaluated by medical team for Vivitrol. No further withdrawal symptoms day of discharge. Outpatient follow-up for counseling, AA and possible Vivitrol. 2. Hypertension, poorly controlled-initiated on lisinopril 20 mg daily. Home atenolol increased to 100 mg p.o. nightly as well. Continue outpatient monitoring. 3. Anxiety/depression-continue venlafaxine, buspirone, trazodone. Continue outpatient follow-up. 4. GERD-continue PPI. General: Alert, Oriented x3, Cooperative HEENT: Atraumatic, PERRLA, EOMI, Normocephalic Neck: Supple, No JVD, Negative Carotid Bruits Lungs: Clear to auscultation, Normal air movement Cardiovascular: Regular rate, Regular Rhythm, Normal S1, Normal S2, No murmurs Abdomen: Bowel Sounds Present, Soft, Non Tender, Non-Distended, Obese Extremities: No clubbing, No cyanosis, No edema, Capillary Refill Less than 3 Seconds Skin: No rashes, No breakdown Musculoskeletal: No Tenderness to Palpation of Joints or Extremities Neurological: Cranial nerves II-XII grossly intact, Neuro grossly intact Psych/Mental Status: Normal Affect, Appropriate Patient seen and examined prior to discharge. Physical assessment as noted above. Patient is stable for discharge with follow up recommendations as noted above. This patient was seen by DELON Do under the supervision of Dr. Goyal. - Physical Exam Vitals/I&O's: Vital Signs Temp Pulse Resp BP Pulse Ox 98.5 F 69 18 140/99 H 99 03/14/20 07:55 03/14/20 07:55 03/14/20 07:55 03/14/20 07:55 03/14/20 07:55 Oxygen Delivery Method Room Air Weight: 219 lb 2.232 oz Body Mass Index (BMI) 35.9 Intake and Output for Last 24 Hours 03/12/20 03/13/20 03/14/20 23:59 23:59 23:59 Intake Total 1224.0 / 2024.0 3400 / 4000 700 / 700 Balance 1224.0 / 2024.0 3400 / 4000 700 / 700 Current Medications Acetaminophen (Tylenol) 650 mg PO Q6H PRN PRN PRN Reason: Temp > 100.4 F Atenolol (Tenormin (Beta Evelyn)) 100 mg PO QHS [facility] Last Admin: 03/13/20 21:52 Dose: 100 mg Documented by: Buspirone HCl (Buspar) 7.5 mg PO BID [facility] Last Admin: 03/14/20 07:56 Dose: 7.5 mg Documented by: Dicyclomine HCl (Bentyl) 20 mg PO Q6H PRN PRN PRN Reason: abdominal discomfort Last Admin: 03/11/20 21:36 Dose: 20 mg Documented by: Famotidine (Pepcid) 20 mg PO BID [facility] Last Admin: 03/14/20 07:57 Dose: 20 mg Documented by: Folic Acid (Folic Acid) 1 mg PO DAILY@0800 [facility] Last Admin: 03/14/20 07:57 Dose: 1 mg Documented by: Hydralazine HCl (Apresoline Iv) 10 mg IV Q4H PRN PRN PRN Reason: BLOOD PRESSURE Last Admin: 03/13/20 04:52 Dose: 10 mg Documented by: Ibuprofen (Motrin) 600 mg PO Q8H PRN PRN PRN Reason: Pain Score 1-10/10 Last Admin: 03/13/20 14:20 Dose: 600 mg Documented by: Lisinopril (Zestril) 20 mg PO DAILY [facility] Last Admin: 03/14/20 07:58 Dose: 20 mg Documented by: Loperamide HCl (Imodium) 2 mg PO Q4H PRN PRN PRN Reason: LOOSE STOOLS Lorazepam (Ativan) 2 mg IV Q2H PRN PRN; Protocol PRN Reason: CIWA score > 8 but <15 Last Admin: 03/11/20 12:37 Dose: 2 mg Documented by: Lorazepam (Ativan) 2 mg IV UD PRN; Protocol PRN Reason: CIWA score >/=15. Ondansetron HCl (Zofran) 8 mg PO Q8H PRN PRN PRN Reason: NAUSEA Phenobarbital (Phenobarbital) 32.4 mg PO TID [facility] Last Admin: 03/14/20 06:26 Dose: 32.4 mg Documented by: Sodium Chloride () 10 - 40 ml IV UD PRN PRN Reason: SALINE FLUSH Last Admin: 03/13/20 18:05 Dose: 10 ml Documented by: [facility] Admin: 03/14/20 07:57 Dose: 100 mg Documented by: Trazodone HCl (Desyrel) 50 mg PO QHS [facility] Last Admin: 03/13/20 21:50 Dose: 50 mg Documented by: Venlafaxine HCl (Effexor Xr) 150 mg PO DAILY [facility] Last Admin: 03/14/20 07:56 Dose: 150 mg Documented by: Discharge Diet: Low fat/ Low Cholesterol, 2000 mg Sodium Diet Discharge Activity: Return to Normal Activity Home Medications: Medications to take at Discharge Loratadine [Claritin] 10 mg PO DAILY 06/27/19 buspirone 7.5 mg tablet 7.5 mg PO BID #180 tab 08/25/19 lansoprazole 30 mg capsule,delayed release 30 mg PO DAILY #90 cap 08/25/19 trazodone 50 mg tablet 50 mg PO QHS #90 tab 08/25/19 albuterol sulfate 90 mcg/actuation aerosol inhaler 2 puff INHALATION 6XD PRN #8.5 g 01/27/20 venlafaxine 150 mg capsule,extended release 24 hr 150 mg PO DAILY #90 cap 03/06/20 Atenolol [Tenormin (beta evelyn)] 100 mg PO QHS #30 tab 03/14/20 Lisinopril [Zestril] 20 mg PO DAILY #30 tab 03/14/20 Following Prescrptions Were Given to Patient: Atenolol [Tenormin (beta evelyn)] 100 mg PO QHS #30 tab Transmission Status: Received by [facility]/pharmacy #[id number] Lisinopril [Zestril] 20 mg PO DAILY #30 tab Transmission Status: Received by [facility]/pharmacy #[id number] Primary Care Physician: Jacquelin Quezada MD [Primary Care Provider] - Please follow up with your Primary Care Physician in: 1 Week Please Follow Up With: [facility] When: As scheduled Disposition: Home Minutes spent on discharge:: 35 Patient Condition:: Stable Medical Necessity - Tobacco Use Smoking Status: Never smoker Tobacco Use: Non-smoker Meaningful Use Info Meaningful Use Diagnoses (Choose all that apply): None applicable <Chanel Goyal - Last Filed: 03/14/20 10:42> Discharge Date and Diagnosis - Secondary Discharge Diagnosis Chronic Problems (Last Updated 03/14/20 @ 09:23 by Jessenia Fragoso, CATA-C) GERD (gastroesophageal reflux disease) (Chronic) Hypertension (Chronic) Alcohol abuse (Chronic) Fatty infiltration of liver (Chronic) Obesity (Chronic) Abnormal LFTs (Chronic) Anxiety and depression (Chronic) Eosinophilic esophagitis (Chronic) Hospital Course and Treatment Summary of Care Provided: This patient was seen in conjunction with Jessenia Fragoso NP. I have independently interviewed and examined the patient and reviewed pertinent historical, laboratory, and other data. Please refer to her note for patient's presentation, findings, and recommendations. 39-year-old male with past medical history of alcohol use disorder, hypertension who was admitted for medical stabilization for acute alcohol withdrawal. Patient was managed on a phenobarb taper with improvement. His blood pressures were uncontrolled in the hospital. Home atenolol was increased to 100 mg p.o. daily. Lisinopril 20 mg daily was also added to his medication with better control blood pressure. Patient was seen by social work and accepted into [facility] program starting on the day of discharge. On the day of discharge, patient was seen and examined. He denied any new complaints. He feels improved. No acute events overnight. Vitals were reviewed -BP is better of 140/99 Physical Exam: Gen: Comfortable, obese, not pale, not jaundiced, alert oriented x3 CVS:HS I +II, regular, no murmurs RESP: CTA GI: BS present and normal, nontender, no palpable organs EXT:No edema - Physical Exam Vitals/I&O's: Vital Signs Temp Pulse Resp BP Pulse Ox 98.5 F 69 18 140/99 H 99 03/14/20 07:55 03/14/20 07:55 03/14/20 07:55 03/14/20 07:55 03/14/20 07:55 Oxygen Delivery Method Room Air Weight: 99.4 kg Body Mass Index (BMI) 35.9 Intake and Output for Last 24 Hours 03/12/20 03/13/20 03/14/20 23:59 23:59 23:59 Intake Total 1224.0 / 2024.0 3400 / 4000 700 / 700 Balance 1224.0 / 2024.0 3400 / 4000 700 / 700 Current Medications Acetaminophen (Tylenol) 650 mg PO Q6H PRN PRN PRN Reason: Temp > 100.4 F Atenolol (Tenormin (Beta Evelyn)) 100 mg PO QHS [facility] Last Admin: 03/13/20 21:52 Dose: 100 mg Documented by: Buspirone HCl (Buspar) 7.5 mg PO BID [facility] Last Admin: 03/14/20 07:56 Dose: 7.5 mg Documented by: Dicyclomine HCl (Bentyl) 20 mg PO Q6H PRN PRN PRN Reason: abdominal discomfort Last Admin: 03/11/20 21:36 Dose: 20 mg Documented by: Famotidine (Pepcid) 20 mg PO BID [facility] Last Admin: 03/14/20 07:57 Dose: 20 mg Documented by: Folic Acid (Folic Acid) 1 mg PO DAILY@0800 [facility] Last Admin: 03/14/20 07:57 Dose: 1 mg Documented by: Hydralazine HCl (Apresoline Iv) 10 mg IV Q4H PRN PRN PRN Reason: BLOOD PRESSURE Last Admin: 03/13/20 04:52 Dose: 10 mg Documented by: Ibuprofen (Motrin) 600 mg PO Q8H PRN PRN PRN Reason: Pain Score 1-10/10 Last Admin: 03/13/20 14:20 Dose: 600 mg Documented by: Lisinopril (Zestril) 20 mg PO DAILY [facility] Last Admin: 03/14/20 07:58 Dose: 20 mg Documented by: Loperamide HCl (Imodium) 2 mg PO Q4H PRN PRN PRN Reason: LOOSE STOOLS Lorazepam (Ativan) 2 mg IV Q2H PRN PRN; Protocol PRN Reason: CIWA score > 8 but <15 Last Admin: 03/11/20 12:37 Dose: 2 mg Documented by: Lorazepam (Ativan) 2 mg IV UD PRN; Protocol PRN Reason: CIWA score >/=15. Ondansetron HCl (Zofran) 8 mg PO Q8H PRN PRN PRN Reason: NAUSEA Phenobarbital (Phenobarbital) 32.4 mg PO TID [facility] Last Admin: 03/14/20 06:26 Dose: 32.4 mg Documented by: Sodium Chloride () 10 - 40 ml IV UD PRN PRN Reason: SALINE FLUSH Last Admin: 03/13/20 18:05 Dose: 10 ml Documented by: Thiamine HCl ([facility]itamin B1) [facility] Last Admin: 03/14/20 07:57 Dose: 100 mg Documented by: Trazodone HCl (Desyrel) 50 mg PO QHS [facility] Last Admin: 03/13/20 21:50 Dose: 50 mg Documented by: Venlafaxine HCl (Effexor Xr) 150 mg PO DAILY [facility] Last Admin: 03/14/20 07:56 Dose: 150 mg Documented by: Inpatient E&M: [id number] [facility]
== END 2020-03-14 10:39 | disposition home or self-care (01) | DRG 897 ==
LOC: ED 11:05 → PCU 11:40
PROVIDERS: Nurse Practitioner Family; Admitting Provider Internal Medicine; Emergency Provider Emergency Medicine; PCP Internal Medicine; Visit Provider Internal Medicine
DX: F10.239 Alcohol dependence with withdrawal, unspecified (principal); I10 Essential (primary) hypertension; F32.9 Major depressive disorder, single episode, unspecified; F41.9 Anxiety disorder, unspecified; K21.9 Gastro-esophageal reflux disease without esophagitis; K76.0 Fatty (change of) liver, not elsewhere classified; E66.9 Obesity, unspecified; Z79.899 Other long term (current) drug therapy; Z68.35 Body mass index [BMI] 35.0-35.9, adult; E87.6 Hypokalemia; E83.42 Hypomagnesemia
CPT/HCPCS: 36415; 71045; 80048; 80307; 80320; 81001; 83735; 85025; 93005; 96361; 96374; 96375; 99283; 99406; J7030; A4216; G0480

== ENCOUNTER → 2020-04-04 | Outpatient (CLI) | payer OTHER, SELFPAY ==
[2020-04-04 09:37] VITALS: BMI 35.9
[2020-04-04 14:32] LABS: T4 Free Direct 1.02 ng/dL (0.76-1.46); Thyroid Stim Hormone (TSH) 1.41 uIU/mL (0.358-3.74)
== END | disposition home or self-care (01) ==
LOC: LABSPEC 13:52
PROVIDERS: PCP Internal Medicine; Referring Provider Internal Medicine; Visit Provider Internal Medicine
DX: F41.9 Anxiety disorder, unspecified (principal); F32.9 Major depressive disorder, single episode, unspecified
CPT/HCPCS: 84439; 84443

== ENCOUNTER 2020-04-21 17:26 | Emergency (ER) | payer OTHER, SELFPAY ==
[2020-04-04 09:37] VITALS: BMI 35.9
[2020-04-21 17:27] VITALS: BP 119/86; PULSE 86; RESP 20; TEMP 36.7; O2SAT 95; BMI 35.9
[2020-04-21 19:31] VITALS: BP 120/82; PULSE 82; RESP 16; O2SAT 99
--- NOTE | 2020-04-21 20:03 | ED.DCSUM_ITS ---
History of Present Illness Chief Complaint: Substance Abuse Detail of Chief Complaint: wants detox Informant: Patient Onset: Days - 4 Context: Gradual Onset Narrative: Patient presents intoxicated. He has been drinking a 12 pack of beer every day for the last 4 days. Prior to that he was sober for 1.5 months. He has an alcoholic, he states he continues to go to counseling and AA, however he was just testing the reddy when he decided to start drinking 4 days ago. He states he wants detox now so that he can quit. He denies any recent illnesses. He denies any suicidal ideation. - Past Medical History (1) Alcoholism Status: Chronic (2) Anxiety and depression Status: Chronic (3) Eosinophilic esophagitis Status: Chronic (4) Fatty infiltration of liver Status: Chronic (5) GERD (gastroesophageal reflux disease) Status: Chronic (6) Hypertension Status: Chronic Past Medical History - Allergies and Home Meds Allergies/Adverse Reactions: Allergies oxaprozin [From Daypro] Allergy (Verified 04/21/20 17:29) Hives Primary Care Physician: Jacquelin Quezada MD [Primary Care Provider] - Lives: Spouse/ Significant Other Smoking Status: Never smoker Alcohol: Heavy - Family History Maternal Family History: Family History (Last Reviewed 03/11/20 @ 13:43 by DELON Do) Other Anxiety Hypertension Family History: Reports: - - Alcohol abuse Paternal Family History: Family History (Last Reviewed 03/11/20 @ 13:43 by DELON Do) Other Anxiety Hypertension Family History: Reports: Heart Disease, - - Chronic alcohol disease/alcoholic hepatitis Review of Systems General: Denies: Chills, Fever, Sweats Eyes: Denies: Visual changes - bilaterally, Diplopia ENT: Denies: Rhinorrhea, Sore throat Cardiovascular: Denies: Chest pain, Palpitations Respiratory: Denies: Dyspnea, Cough, Dyspnea on exertion Gastrointestinal: Denies: Abdominal pain, Nausea, Vomiting, Diarrhea, Melena, Hematochezia Genitourinary: Denies: Dysuria, Hematuria, Frequency Musculoskeletal: Denies: Back pain, Extremity Pain Skin: Denies: Rash, Wounds Neurological: Denies: Headache, Weakness, Numbness Physical Exam Vital Signs/Narrative: Vital Signs Temp Pulse Resp BP Pulse Ox 04/21/20 19:31 82 16 120/82 H 99 04/21/20 17:27 98.1 F 86 20 H 119/86 H 95 Inital Vital Signs reviewed: Yes General: Well nourished, Well developed, No Acute Distress Head: Normocephalic, Atraumatic Eyes: Perrl, EOMI ENT: Moist mucous membranes, No rhinorrhea Neck: Supple, Nontender Cardiovascular: Regular rate, Regular rhythm, No murmurs Respiratory: No distress, CTA bilaterally, Chest nontender Abdomen: Soft, Nontender, Nondistended, Normal bowel sounds Back: Nontender, Normal Inspection Extremities: Nontender, No edema Skin: Normal color, No rash Neurological: Alert, Oriented x3, Cranial nerves II-XII grossly intact, Normal Strength, Normal Sensation Psychological: Normal affect, Normal Mood, - - pleasantly intoxicated Diagnostic/Tx/Re-eval - Medical Decision Making I discussed options with the patient, he prefers not to stay in the hospital if he can detox safely at home, he would prefer to do that. When asked if he feels he can control his cravings for alcohol, he feels he will be able to avoid drin brodie, and does not need to stay in the hospital for that purpose. I offered Librium, and he is comfortable with that, he was given one here. I discussed with Dr. acosta, she thinks it would be a reasonable thing, if the patient bounces back, then we can look on this in the future and avoid repeating this course. Patient understands all this and was given appropriate discharge instructions and advised to follow-up as an outpatient. ED Disposition - Plan for ED Patient: Disposition: Home or Assisted Living Diagnosis: Alcohol abuse Instructions: ED Alcohol Abuse Prescriptions: Chlordiazepoxide [Librium] 25 - 50 mg PO TID PRN PRN #20 cap PRN Reason: anxiety/withdrawal symptoms Prescription Printed Referrals: [facility] [STAFF PHYSICIAN] -
[2020-04-21 20:25] VITALS: BP 120/82; PULSE 82; RESP 16; O2SAT 99
[2020-04-21] MEDS: chlordiazePOXIDE 25 MG Capsule PO (20:31)
== END 2020-04-21 20:38 | disposition home or self-care (01) ==
PROVIDERS: Emergency Provider Emergency Medicine; PCP Internal Medicine
DX: F10.10 Alcohol abuse, uncomplicated (principal); F32.9 Major depressive disorder, single episode, unspecified; F41.9 Anxiety disorder, unspecified; I10 Essential (primary) hypertension; Z79.899 Other long term (current) drug therapy; K76.0 Fatty (change of) liver, not elsewhere classified
CPT/HCPCS: 99283

== ENCOUNTER → 2020-04-24 20:32 | Outpatient (CLI) | payer OTHER, SELFPAY ==
[2020-03-20 14:41] VITALS: BMI 35.9
== END ==
PROVIDERS: PCP Internal Medicine; Referring Provider Internal Medicine; Visit Provider Internal Medicine
DX: G47.10 Hypersomnia, unspecified (principal)
CPT/HCPCS: 95810

== ENCOUNTER → 2020-05-04 | Outpatient (CLI) | payer OTHER, SELFPAY ==
[2020-05-04 10:12] VITALS: BMI 35.9
[2020-05-04 13:12] LABS: ALB/GLOB Ratio 1.1 RATIO (0.9-2.4); AST(SGOT) 18 U/L (15-37); Alanine Aminotransfer ALT/SGPT 31 U/L (16-61); Albumin, Serum 3.8 g/dL (3.2-5.0); Alkaline Phosphatase 42 U/L (45-117); Anion Gap 4 (5-15); BUN 16 mg/dL (7-18); Calcium,Total 8.8 mg/dL (8.5-10.1); Chloride 104 mmol/L (98-107); EST Glomerular Filtration Rate 89 mL/min (>60); Est Glom Filt Rate - Afr Amer 108 mL/min (>60); Globulin 3.5 g/dL (2.2-4.2); Glucose 103 mg/dL (74-106); Magnesium 2.2 mg/dL (1.6-2.6); Phosphorus 2.9 mg/dL (2.5-4.9); Potassium 4.8 mmol/L (3.5-5.1); Protein, Total 7.3 g/dL (6.4-8.2); Sodium Level 139 mmol/L (136-145)
== END | disposition home or self-care (01) ==
PROVIDERS: PCP Internal Medicine; Referring Provider Internal Medicine; Visit Provider Internal Medicine
DX: F10.10 Alcohol abuse, uncomplicated (principal)
CPT/HCPCS: 36415; 80053; 83735; 84100

== ENCOUNTER → 2020-05-17 12:01 | Outpatient (CLI) | payer OTHER, SELFPAY ==
[2020-05-11 13:59] VITALS: BMI 35.5
== END ==
PROVIDERS: PCP Internal Medicine; Visit Provider Nurse Practitioner Acute Care
DX: Z46.89 Encounter for fitting and adjustment of other specified devices (principal)

== ENCOUNTER → 2020-05-18 | Outpatient (CLI) | payer OTHER, SELFPAY ==
[2020-05-11 13:59] VITALS: BMI 35.5
== END | disposition home or self-care (01) ==
LOC: SL 13:52
PROVIDERS: PCP Internal Medicine; Visit Provider Nurse Practitioner Acute Care
DX: G47.10 Hypersomnia, unspecified (principal)

== ENCOUNTER 2020-06-30 11:38 | Emergency (ER) | payer OTHER, SELFPAY ==
[2020-05-11 13:59] VITALS: BMI 35.5
[2020-06-30 11:40] VITALS: BP 128/77; PULSE 70; RESP 16; TEMP 36.2; O2SAT 99; BMI 34.9
--- NOTE | 2020-06-30 11:58 | ED.VIS.GEN ---
History of Present Illness Chief Complaint: Substance Abuse Detail of Chief Complaint: nausea Informant: Patient Onset: Days - 3 Context: Gradual Onset Quality: nausea Current Severity: Moderate Maximum Severity: Moderate Worsened by: unk Relieved by: unk Associated Symptoms: malaise. no confusion, seizure, shakiness, vomiting, fever, other illness Narrative: Patient states he is embarrassed to report that he was at an alcoholic treatment program as an inpatient for 30 days down in [place], he just got home 4 days ago, and the day after that started drinking. He states he has had basically what his baseline is of around 15 both light beers per day, for the last 3 days, his last drink was 2 or 3 hours ago, he has had 3 beers this morning. He thinks he is in alcohol withdrawal. He feels nauseated. He has no other symptoms. He is not suicidal or having any other acute issues. He wants to stop drinking, and states that is it, this was stupid, I am done drinking. - Past Medical History (1) EBONY (obstructive sleep apnea) Status: Chronic Comment: AHI 8.6 (2) Alcoholism Status: Chronic (3) Anxiety and depression Status: Chronic (4) Eosinophilic esophagitis Status: Chronic (5) Fatty infiltration of liver Status: Chronic (6) Hypertension Status: Chronic Past Medical History - Allergies and Home Meds Allergies/Adverse Reactions: Allergies oxaprozin [From Daypro] Allergy (Verified 06/30/20 11:40) Hives Primary Care Physician: Jacquelin Quezada MD [Primary Care Provider] - [facility] [STAFF PHYSICIAN] - As soon as possible (call for appt) Smoking Status: Never smoker Alcohol: Heavy - Family History Maternal Family History: Family History (Last Reviewed 05/11/20 @ 13:36 by DELON Coronel) Other Anxiety Hypertension Family History: Reports: - - Alcohol abuse Paternal Family History: Family History (Last Reviewed 05/11/20 @ 13:36 by DELON Coronel) Other Anxiety Hypertension Family History: Reports: Heart Disease, - - Chronic alcohol disease/alcoholic hepatitis Review of Systems General: Reports: Malaise. Denies: Chills, Fever, Sweats Eyes: Denies: Visual changes - bilaterally, Diplopia ENT: Denies: Rhinorrhea, Sore throat Cardiovascular: Denies: Chest pain, Palpitations Respiratory: Denies: Dyspnea, Cough, Dyspnea on exertion Gastrointestinal: Reports: Nausea. Denies: Abdominal pain, Vomiting, Diarrhea, Melena, Hematochezia Genitourinary: Denies: Dysuria, Hematuria, Frequency Musculoskeletal: Denies: Back pain, Extremity Pain Skin: Denies: Rash, Wounds Neurological: Reports: - - No ataxia. Denies: Headache, Weakness, Numbness Psych: Reports: Anxiety. Denies: Suicidal thoughts Physical Exam Vital Signs/Narrative: Vital Signs Temp Pulse Resp BP Pulse Ox 06/30/20 11:40 97.1 F L 70 16 128/77 H 99 Inital Vital Signs reviewed: Yes General: Well nourished, Well developed, No Acute Distress Head: Normocephalic, Atraumatic Eyes: Perrl, EOMI ENT: Moist mucous membranes, No rhinorrhea Neck: Supple, Nontender, No lymphadenopathy Cardiovascular: Regular rate, Regular rhythm, No murmurs. Negative for: Tachycardia Respiratory: No distress, CTA bilaterally, Chest nontender Abdomen: Soft, Nontender, Nondistended, Normal bowel sounds Back: Nontender, Normal Inspection Extremities: Nontender, No edema. Negative for: Calf Tenderness Skin: Normal color, No rash, No Trauma Neurological: Alert, Oriented x3, Cranial nerves II-XII grossly intact, Normal Strength, Normal Sensation, Normal Gait Psychological: Normal affect, Normal Mood Diagnostic/Tx/Re-eval - Medical Decision Making Patient is reassured. He has a benign exam, he is not grossly intoxicated, and I do not think he is in any type of life-threatening withdrawal. I think he can be treated as an outpatient to follow-up with 180 which he is amenable to and prefers. He was given Zofran and a dose of Librium 50 mg, and is feeling better. He is comfortable with this plan, and feels if he is discharged he will not drink alcohol, and he plans to follow-up after the weekend. He is asking for prescriptions for these, he will be given very small amounts to use as needed. Discussed reasons to return. ED Disposition - Plan for ED Patient: Disposition: Home or Assisted Living Diagnosis: Alcohol abuse Instructions: ED Alcohol Abuse Prescriptions: Chlordiazepoxide [Librium] 25 mg PO TID PRN PRN #6 cap PRN Reason: anxiety/shaking Prescription Printed Ondansetron [Zofran Odt] 8 mg PO Q8H PRN PRN #7 tab PRN Reason: Nausea Prescription Printed Referrals: Jacquelin Quezada MD [Primary Care Provider] - [facility] [STAFF PHYSICIAN] - As soon as possible (call for appt)
[2020-06-30] MEDS: Ondansetron ODT 4 MG Tablet 8 MG PO (12:27)
[2020-06-30] MEDS: chlordiazePOXIDE 25 MG Capsule 50 MG PO (12:27)
== END 2020-06-30 13:45 | disposition home or self-care (01) ==
LOC: ED 12:09
PROVIDERS: Emergency Provider Emergency Medicine; PCP Internal Medicine
DX: F10.10 Alcohol abuse, uncomplicated (principal); I10 Essential (primary) hypertension; F32.9 Major depressive disorder, single episode, unspecified; F41.9 Anxiety disorder, unspecified; Z79.899 Other long term (current) drug therapy
CPT/HCPCS: 99283

== ENCOUNTER → 2020-07-04 14:29 | Outpatient (CLI) | payer OTHER, SELFPAY ==
[2020-07-04 13:38] VITALS: BMI 34.9
[2020-07-04 15:05] LABS: Hematocrit 35.8 % (40-54); Hemoglobin 12.4 g/dL (13.0-16.5); Mean Corp Hgb Conc 34.6 g/dL (32-36); Mean Corpuscular Volume 95.2 fL (80-94); Mean Platelet Vol. 10.6 fl (6.2-12.0); Platelet Count 159 K/mm3 (150-450); RBC Distribution Width CV 14.5 % (11.6-14.6); Red Blood Count 3.76 M/mm3 (4.6-6.2); White Blood Count 8.2 K/mm3 (4.4-11.0)
[2020-07-04 17:37] LABS: ALB/GLOB Ratio 1.2 RATIO (0.9-2.4); AST(SGOT) 41 U/L (15-37); Alanine Aminotransfer ALT/SGPT 48 U/L (16-61); Alkaline Phosphatase 49 U/L (45-117); Anion Gap 6 (5-15); BUN 16 mg/dL (7-18); BUN/Creat Ratio 14.4 RATIO (10-20); Calcium,Total 8.7 mg/dL (8.5-10.1); Chloride 104 mmol/L (98-107); Creatinine, Serum 1.11 mg/dL (0.70-1.30); EST Glomerular Filtration Rate 79 mL/min (>60); Est Glom Filt Rate - Afr Amer 95 mL/min (>60); Globulin 3.4 g/dL (2.2-4.2); Glucose 86 mg/dL (74-106); Potassium 3.9 mmol/L (3.5-5.1); Protein, Total 7.4 g/dL (6.4-8.2); Sodium Level 138 mmol/L (136-145)
[2020-07-05 10:00] LABS: Hepatitis C Antibody Non-Reactive (Nonreactive)
== END ==
PROVIDERS: PCP Internal Medicine; Referring Provider Nurse Practitioner Family; Visit Provider Nurse Practitioner Family
DX: F10.10 Alcohol abuse, uncomplicated (principal); I10 Essential (primary) hypertension; K76.0 Fatty (change of) liver, not elsewhere classified; B19.20 Unspecified viral hepatitis C without hepatic coma; R94.5 Abnormal results of liver function studies
CPT/HCPCS: 36415; 80053; 85027; 86803

== ENCOUNTER 2020-11-13 19:19 | Emergency (ER) | payer OTHER, SELFPAY ==
[2020-10-01 14:43] VITALS: BMI 37.5
[2020-11-13 19:20] VITALS: BP 159/102; PULSE 103; RESP 18; TEMP 36.6; O2SAT 99; BMI 35.7
--- NOTE | 2020-11-13 19:33 | ED.VISSUMM ---
- ER Visit Summary Date of Service: 11/13/20 Chief Complaint: Alcohol intoxication, nausea History of Present Illness: The patient is a 40 M who presents with alcohol intoxication as well as nausea. He states for the past 4 days he has been drinking about 12 cans of beer a day. For the last 6 months he was sober and then started drinking 4 days ago. He has been in quarantine due to a exposure to coronavirus. He states that he started drinking during this quarantine. He feels little bit nauseous today. His last drink was just before arriving here. He has been through to detox stints in the past. He is denying any abdominal pain. He does not want to stay in the hospital for any detox at this time. Physical Examination: Vital signs reviewed. HEENT exam unremarkable. Heart is regular rate and rhythm without murmurs. Lungs are clear to auscultation. Abdomen is soft and nontender. Extremities reveal no edema. Skin exam normal. Neurologic exam normal. Test Results: None performed Emergency Department Course and Treatment: Patient overall appears well but slightly intoxicated. He does not want to be admitted for detox at this time. I will give him a dose of Zofran ODT as well as Librium. He will go home with Zofran ODT to help with his nausea. He is going to call 180 for follow-up Treatment Plan: [] Disposition: Discharge Impression: Alcohol toxic agent, nausea This note was generated with [employer] Interactive dictation software. It may contain incorrect words, spelling, and punctuation that were not noted in review of the chart prior to signing ED Disposition - Plan for ED Patient: Disposition: Home or Assisted Living Instructions: ED Alcohol Intoxication Prescriptions: Ondansetron [Zofran Odt] 4 mg PO Q8H PRN PRN #10 tab PRN Reason: Nausea Transmission Status: Pending to [id number] Referrals: Jacquelin Quezada MD [Primary Care Provider] -
== END 2020-11-13 19:42 | disposition home or self-care (01) ==
LOC: ED 19:38
PROVIDERS: Emergency Provider Emergency Medicine; PCP Internal Medicine
DX: F10.129 Alcohol abuse with intoxication, unspecified (principal); R11.0 Nausea; I10 Essential (primary) hypertension; Z79.899 Other long term (current) drug therapy
CPT/HCPCS: 99283

== ENCOUNTER 2020-11-15 21:25 | Observation (INO) | payer OTHER, SELFPAY ==
[2020-11-15 21:26] VITALS: BP 137/79; PULSE 88; RESP 16; TEMP 36.3; O2SAT 98; BMI 35.7
--- NOTE | 2020-11-15 21:36 | ED.DCSUM_ITS ---
History of Present Illness Chief Complaint: Substance Abuse Informant: Patient Onset: Weeks - 1 Narrative: Patient presents for alcohol detox. States he relapsed a week ago with at minimum 6 beers a day. Denies liquor or wine. He denies any illicit drug use. States he has drank since he was in college, he is detoxed twice most recent was 6 months ago his insurance sent him to [place] from here for this. He denies suicidal or homicidal ideations. He was seen 2 days ago in the emergency department here for alcohol and nausea symptoms. He did not want help at that time. He was sent home with a prescription for Zofran. He reports he does have morning nausea and tremors. No withdrawal seizures in the past. His last drink was prior to arrival he drank a sixpack today. Denies any cirrhosis diagnosis history. Denies abdominal pain. Denies vomiting or diarrhea. Prior similar symptoms: Yes Past Medical History - Allergies and Home Meds Allergies/Adverse Reactions: Allergies oxaprozin [From Daypro] Allergy (Verified 11/15/20 21:28) [facility] Primary Care Physician: Jacquelin Quezada MD [Primary Care Provider] - Past Medical History: - - Alcohol dependence Smoking Status: Never smoker - Family History Maternal Family History: Family History (Last Reviewed 07/04/20 @ 13:33 by Sarahi Bullard) Other Anxiety Hypertension Family History: Reports: - - Alcohol abuse Paternal Family History: Family History (Last Reviewed 07/04/20 @ 13:33 by Sarahi Bullard) Other Anxiety Hypertension Family History: Reports: Heart Disease, - - Chronic alcohol disease/alcoholic hepatitis Review of Systems General: Denies: Chills, Fever, Sweats Eyes: Denies: Visual changes - bilaterally, Diplopia ENT: Denies: Rhinorrhea, Sore throat Cardiovascular: Denies: Chest pain, Palpitations Respiratory: Denies: Dyspnea, Cough, Dyspnea on exertion Gastrointestinal: Denies: Abdominal pain, Nausea, Vomiting, Diarrhea, Melena, Hematochezia Genitourinary: Denies: Dysuria, Hematuria, Frequency Musculoskeletal: Denies: Back pain, Extremity Pain Skin: Denies: Rash, Wounds Neurological: Denies: Headache, Weakness, Numbness Psych: Denies: Depression, Anxiety, Suicidal thoughts, Suicidal ideations Physical Exam Vital Signs/Narrative: Vital Signs Temp Pulse Resp BP Pulse Ox 12/17/20 21:26 97.4 F L 88 16 137/79 H 98 Inital Vital Signs reviewed: Yes General: Well nourished, Well developed, No Acute Distress Head: Normocephalic, Atraumatic Eyes: Perrl, EOMI ENT: Moist mucous membranes, No rhinorrhea Neck: Supple, Nontender Cardiovascular: Regular rate, Regular rhythm, No murmurs Respiratory: No distress, CTA bilaterally, Chest nontender Abdomen: Soft, Nontender, Nondistended, Normal bowel sounds Back: Nontender, Normal Inspection Extremities: Nontender, No edema Skin: Normal color, No rash Neurological: Alert, Oriented x3, Cranial nerves II-XII grossly intact, Normal Strength, Normal Sensation Psychological: Normal affect, Normal Mood Diagnostic/Tx/Re-eval - Medical Decision Making Patient vital signs stable clinically stable and sober at this time. Labs alcohol and tox level ordered and pending. I discussed with hospitalist for evaluation for plan admission for assistance with detoxification. 2147: Patient evaluated will admit hospital for assistance with detoxification. Pending lab results at this time. ED Disposition - Plan for ED Patient: Disposition: Acute Care Hospital [facility] Diagnosis: Alcoholism Referrals: Jacquelin Quezada MD [Primary Care Provider] -
--- NOTE | 2020-11-15 22:04 | HP.PCM_ITS ---
Problem List (1) Alcoholism Status: Acute (2) EBONY (obstructive sleep apnea) Status: Chronic Comment: AHI 8.6 (3) GERD (gastroesophageal reflux disease) Status: Chronic (4) Hypertension Status: Chronic (5) Alcohol abuse Status: Chronic (6) Fatty infiltration of liver Status: Chronic (7) Obesity Status: Chronic Qualifiers: Obesity type: due to excess calories Obesity classification: adult class 2 (BMI 35 - 39.9) Serious obesity comorbidity presence: with serious comorbidity Body mass index: BMI 35.0-35.9 Qualified Code(s): E66.01 - Morbid (severe) obesity due to excess calories; Z68.35 - Body mass index (BMI) 35.0-35.9, adult (8) Abnormal LFTs Status: Chronic (9) Anxiety and depression Status: Chronic (10) Eosinophilic esophagitis Status: Chronic History of Present Illness Date of Admission: 11/15/20 Chief Complaint: Desire for alcohol detoxification The patient is a 40 year old M with a significant history of alcoholism; obstructive sleep apnea; GERD; hypertension; fatty infiltrate of liver; obesity; anxiety ;depression; and eosinophilic esophagitis who presents to the emergency department with a desire to detoxify from alcohol. Patient's insurance put him in an alcohol withdrawal facility in [place] at the end of April to the end of May. Patient relapsed about 2 weeks ago. In the last 4 days he has been drinking heavily. Typically he drinks about 12 cans of beer daily. Last time he drank was about an hour prior to presentation. Before this presentation patient was at emergency department on 11/13/2020 for alcohol intoxication. Per emergent department note at that time patient was given Zofran and Librium. He was discharged home on Zofran. Past Medical History Past Medical History (Chronic Problems): Chronic Problems (Last Reviewed 11/15/20 @ 22:[address] Reynaldo Nguyen MD) EBONY (obstructive sleep apnea) (Chronic) AHI 8.6 GERD (gastroesophageal reflux disease) (Chronic) Hypertension (Chronic) Alcohol abuse (Chronic) Fatty infiltration of liver (Chronic) Obesity (Chronic) Abnormal LFTs (Chronic) Anxiety and depression (Chronic) Eosinophilic esophagitis (Chronic) Medical History: Medical History (Last Reviewed 11/15/20 @ 23:[address] Reynaldo Nguyen MD) GERD (gastroesophageal reflux disease) (Chronic) K21.9 Hypertension (Chronic) I10 Alcohol abuse (Chronic) F10.10 Allergies oxaprozin [From Daypro] Allergy (Verified 11/15/20 21:28) Hives Home Medications: Ambulatory Orders Medication Instructions Recorded albuterol sulfate 90 mcg/actuation 2 puff INHALATION 6XD PRN #8.5 g 01/27/20 aerosol inhaler venlafaxine 150 mg 150 mg PO DAILY #90 cap 03/06/20 capsule,extended release 24 hr lisinopril 20 mg tablet 30 mg PO DAILY 90 Days #135 tab 03/20/20 trazodone 50 mg tablet 50 mg PO QHS PRN #90 tab 04/04/20 loratadine 10 mg tablet 10 mg PO DAILY PRN #90 tab 07/04/20 buspirone 7.5 mg tablet 7.5 mg PO BID #60 tab 10/01/20 lansoprazole 30 mg capsule,delayed 30 mg PO DAILY #30 cap 10/01/20 release atenolol 100 mg tablet 100 mg PO QHS #30 tab 10/23/20 Ondansetron [Zofran Odt] 4 mg PO Q8H PRN PRN #10 tab 11/13/20 Surgical History: Surgical History (Last Reviewed 07/04/20 @ 13:33 by Sarahi Bullard) History of knee surgery Z98.890 Rt knee 2012 History of shoulder surgery Z98.890 Rt shoulder 2003 Psychiatric History: Anxiety, Depression Smoking Status: Former smoker Tobacco Use: Non-smoker - *Family History Paternal Family History: Family History (Last Reviewed 11/15/20 @ 23:[address] Reynaldo Nguyen MD) Other Anxiety Hypertension History Items: Heart Disease, - - Chronic alcohol disease/alcoholic hepatitis Maternal Family History: Family History (Last Reviewed 11/15/20 @ 23:[address] Reynaldo Nguyen MD) Other Anxiety Hypertension History Items: - - Alcohol abuse Review of Systems Constitutional: Denies: Chills, Fever, Weight Change HEENT: Denies: Head Aches, Sinus Congestion, Sinus Drainage Cardiovascular: Denies: Chest Pain, Palpitations Respiratory: Denies: Cough, Shortness of breath at rest, Sputum production Gastrointestinal: Denies: Abdominal Pain, Nausea, Vomiting Genitourinary: Denies: Dysuria Musculoskeletal: Denies: Joint Pain, Joint Tenderness Skin: Denies: Rash, Wounds Neurological: Denies: Numbness, Tingling, Focal weakness Psychiatric: Denies: Anxiety, Depression, Homicidal Ideations, Suicidal Ideations Hematologic/ Lymphatic: Denies: Easy Bruising, Easy Bleeding VTE Information - Inpt Only VTE Present on Admission: No VTE Mechan Device Prophylaxis: SCD's VTE Pharm Prophylaxis ordered?: No Patient Problems: Active and Suspected Problems (Last Reviewed 11/15/20 @ 22:[address] Reynaldo Nguyen MD) Alcoholism (Acute) - Physical Exam Vitals/I&O's: Vital Signs Temp Pulse Resp BP Pulse Ox 97.4 F L 88 16 137/79 H 98 11/15/20 21:26 11/15/20 21:26 11/15/20 21:26 11/15/20 21:26 11/15/20 21: Weight: 97.522 kg Body Mass Index (BMI) 35.7 General: Alert, Oriented x3, Cooperative HEENT: Atraumatic, PERRLA, EOMI, Normocephalic Neck: Supple, No JVD, Negative Carotid Bruits Lungs: Clear to auscultation, Normal air movement Cardiovascular: Regular rate, No murmurs Abdomen: Bowel Sounds Present, Soft, Non Tender Extremities: No edema, Capillary Refill Less than 3 Seconds Skin: No rashes, No breakdown Musculoskeletal: No Tenderness to Palpation of Joints or Extremities Neurological: Cranial nerves II-XII grossly intact Psych/Mental Status: Normal Affect, Appropriate Assessment/Plan All Active Problems (Last Reviewed 11/15/20 @ 22:[address] Reynaldo Nguyen MD) Alcoholism (Acute) Gallstone (Resolved) The patient is a 40 year old M with a significant history of alcoholism; obstructive sleep apnea; GERD; hypertension; fatty infiltrate of liver; obesity; anxiety; depression; and eosinophilic esophagitis who presents to the emergency department with a desire to detoxify from alcohol. Alcohol dependence and desire for detoxification Review of old records showed prior office visits/admission for alcoholism. Patient will be started on phenobarbital and other adjunctive medications: Gabapentin as needed; dicyclomine as needed; Vistaril as needed; methocarbamol as needed; clonidine as needed; Imodium as needed; trazodone as needed; Zofran as needed; scheduled thiamine; and schedule folic acid.. Monitor CIWA score Hypertension Blood pressure is not within goal Atenolol and lisinopril continued Trend blood pressure and adjust blood pressure medications Depression/anxiety Venlafaxine continued Buspirone continued Insomnia Trazodone nightly as needed continued Obstructive sleep apnea Nursing communication to order CPAP/BiPAP nightly and as needed if patient uses same at home. Settings: Same as home setting or titrate for comfort and to keep oxygen saturation more than 92%. DVT prophylaxis Low risk Encourage to ambulate Inpatient E&M: 53227 Init Hosp L2
[2020-11-15 22:08] VITALS: BP 137/79; PULSE 88; RESP 16; TEMP 36.3; O2SAT 98
--- NOTE | 2020-11-15 22:18 | CM.ED ---
SOCIAL WORK Informant: Dr. Ruth Reason for Consult: Substance Abuse- Requesting alcohol detox Met with patient in room. Introduced role and reason for referral. Patient reports recent relapse after abstaining for 6 months. Much encouragement and support provided. Discussed [facility] program. All questions answered. Call to [facility] Treatment Navigator, Winsome. Per Dariana Schumacher to be in tomorrow to complete assessment. Plan: Admit to [facility] Anayeli Fraire, CEMENT PATCHER, [employer]ANCE BUSINESS [employer]NER
[2020-11-15 22:26] LABS: Absolute Lymphocyte Count 2.38 X10^3/uL (0.83-4.51); Absolute Neutrophil Count 5.6 X10^3/uL (2.0-7.7); Basophil# 0.07 X10^3/uL; Basophil% 0.8 % (0-1); Eosinophil# 0.06 X10^3/uL; Eosinophils% 0.7 % (0-5); Hematocrit 43.3 % (40-54); Hemoglobin 15.3 g/dL (13.0-16.5); Lymphocyte # 2.38 X10^3/ul (4.0); Lymphocyte % 27.2 % (19-41); Mean Corp Hgb Conc 35.3 g/dL (32-36); Mean Corpuscular Hgb 32.6 pg (27.0-32.0); Mean Corpuscular Volume 92.3 fL (80-94); Mean Platelet Vol. 9.2 fl (6.2-12.0); Monocyte# 0.66 X10^3/uL; Monocyte% 7.5 % (0-10); NRBC Flagged by Analyzer 0 % (0-5); Neutrophil # 5.56 X10^3/uL (2.7-7.7); Neutrophil % 63.5 % (47-70); Platelet Count 231 K/mm3 (150-450); RBC Distribution Width CV 14.2 % (11.6-14.6); RBC Distribution Width SD 47.8 fl (35.1-43.9); Red Blood Count 4.69 M/mm3 (4.6-6.2); White Blood Count 8.8 K/mm3 (4.4-11.0)
[2020-11-15 22:40] LABS: ALB/GLOB Ratio 1.1 RATIO (0.9-2.4); AST(SGOT) 39 U/L (15-37); Alanine Aminotransfer ALT/SGPT 47 U/L (16-61); Albumin, Serum 4.2 g/dL (3.2-5.0); Alkaline Phosphatase 56 U/L (45-117); Anion Gap 9 (5-15); BUN 12 mg/dL (7-18); Calcium,Total 8.7 mg/dL (8.5-10.1); Chloride 95 mmol/L (98-107); EST Glomerular Filtration Rate 88 mL/min (>60); Est Glom Filt Rate - Afr Amer 107 mL/min (>60); Estimated Creatinine Clearance 86.27 ml/min; Globulin 3.8 g/dL (2.2-4.2); Glucose 95 mg/dL (74-106); Potassium 3.7 mmol/L (3.5-5.1); Sodium Level 133 mmol/L (136-145)
[2020-11-15 22:42] VITALS: BMI 37.0
[2020-11-15 22:45] VITALS: BMI 37.0
[2020-11-15 22:46] LABS: Amphetamine Urine VISTA NEGATIVE (<1000 ng/mL); Barbiturate Urine VISTA NEGATIVE (< 200 ng/mL); Benzodiazepine Urine VISTA NEGATIVE (< 200 ng/mL); Cocaine Urine VISTA NEGATIVE (< 300 ng/mL); Ecstacy Urine VISTA NEGATIVE (< 500 ng/mL); Methadone Urine VISTA NEGATIVE (< 300 ng/mL); PCP Urine VISTA NEGATIVE (< 25 ng/mL); THC Urine VISTA NEGATIVE (< 50 ng/mL); Vista UDS pH Range 6
[2020-11-15 22:57] VITALS: BP 137/89; PULSE 75; RESP 18; TEMP 36.4; O2SAT 98
[2020-11-15] MEDS: Phenobarbital 32.4 MG Tablet 97.2 MG PO (23:22)
[2020-11-15] MEDS: Ondansetron 8 MG Tablet PO (23:22)
[2020-11-15] MEDS: traZODone 50 MG Tablet PO (23:22)
[2020-11-16] MEDS: Dicyclomine 10 MG Capsule 20 MG PO (02:40)
[2020-11-16] MEDS: Phenobarbital 32.4 MG Tablet 97.2 MG PO ×3 (02:40→11:35)
[2020-11-16] MEDS: hydrOXYzine PAM 25 MG Capsule 50 MG PO (02:40)
[2020-11-16 02:44] VITALS: BP 114/76; PULSE 93; RESP 18; TEMP 36.8; O2SAT 97
[2020-11-16 06:29] VITALS: BP 122/71; PULSE 99; RESP 15; TEMP 36.9; O2SAT 95
[2020-11-16] MEDS: Gabapentin 300 MG Capsule PO (06:38)
--- NOTE | 2020-11-16 06:42 | NURSING ---
Pt is moderately anxious this morning. He is worried about someone finding out he is here. Reassurance given. Medicated with neurontin and scheduled phenobarbital. Denies any additional needs for meds at this time.
[2020-11-16 07:24] VITALS: O2SAT 92
[2020-11-16] MEDS: Thiamine Hydrochloride 100 MG Tablet PO (08:09)
[2020-11-16] MEDS: Folic Acid 1 MG Tablet PO (08:09)
[2020-11-16 09:26] VITALS: BP 147/82; PULSE 111; RESP 20; TEMP 37.2; O2SAT 100
[2020-11-16 10:00] VITALS: BP 140/80; PULSE 80; RESP 18; TEMP 37.2; O2SAT 98
[2020-11-16] MEDS: busPIRone 5 MG Tablet 7.5 MG PO (10:31)
[2020-11-16] MEDS: Venlafaxine XR 150 MG Capsule PO (10:31)
[2020-11-16] MEDS: Pantoprazole Sodium 40 MG Tablet PO (10:31)
[2020-11-16] MEDS: Lisinopril 20 MG Tablet PO (10:32)
--- NOTE | 2020-11-16 11:14 | PCM.PN.HOSP ---
Patient Problems: Active and Suspected Problems (Last Reviewed 11/15/20 @ 23:[address] Reynaldo Nguyen MD) Alcoholism (Acute) Subjective: Patient seen and examined. He was admitted for acute alcohol withdrawal. Patient tells me today that he cannot stay for the 3-day detox process and needs to leave tomorrow. I informed patient that I cannot discharge him tomorrow as he would not have completed the detox protocol and informed him that if he insisted on leaving, he would have to sign out AGAINST MEDICAL ADVICE. Patient said he would therefore sign out AGAINST MEDICAL ADVICE tomorrow because he seriously thinks he needs to leave tomorrow. He complains of rectal bleeding which was painful and occurred this morning. He does have a history of hemorrhoids but says the bleeding from the hemorrhoids usually not painful and is much less profuse. He has remained hemodynamically stable. Vitals/I&O's: Vital Signs Temp Pulse Resp BP Pulse Ox 98.9 F 80 18 140/80 H 98 11/16/20 10:00 11/16/20 10:00 11/16/20 10:00 11/16/20 10:00 11/16/20 10:00 Oxygen Delivery Method Room Air Weight: 222 lb 7.143 oz Body Mass Index (BMI) 37.0 Intake and Output for Last 24 Hours 11/14/20 11/15/20 11/16/20 23:59 23:59 23:59 Intake Total 400 / 400 Output Total 0 / 0 Balance 400 / 400 General: Alert, Oriented x3, Cooperative, No apparent distress HEENT: Atraumatic, PERRLA, EOMI, Normocephalic Oral: Dry Mucosa Neck: Supple, No JVD, Negative Carotid Bruits Lungs: Clear to auscultation, Normal air movement, No rhonchi, No wheeze, No rales Cardiovascular: Regular rate, Regular Rhythm, Normal S1, Normal S2, No murmurs Abdomen: Bowel Sounds Present, Soft, Non Tender, Non-Distended, No Hepato-splenomegaly Extremities: No clubbing, No cyanosis, No edema, Capillary Refill Less than 3 Seconds Skin: No rashes, No breakdown Musculoskeletal: No Tenderness to Palpation of Joints or Extremities Lymphatic: No Cervical, Supraclavicular, or Inguinal Adenopathy Neurological: Cranial nerves II-XII grossly intact, Neuro grossly intact, Motor Exam 5/5 strength throughout Psych/Mental Status: Anxious, Alert and oriented to time, place, person, mood and affect Laboratory Results 11/15/20 21:50: Urine Opiates Screen NEGATIVE, Urine Methadone Screen NEGATIVE, Ur Barbiturates Screen NEGATIVE, Ur Phencyclidine Scrn NEGATIVE, Ur Amphetamines Screen NEGATIVE, U Methamphetamin-MDMA NEGATIVE, U Benzodiazepines Scrn NEGATIVE, Urine Cocaine Screen NEGATIVE, U Cannabinoids Screen NEGATIVE, Ur Drug Screen Comment 11/15/20 22:00: WBC 8.8, RBC 4.69, Hgb 15.3, Hct 43.3, MCV 92.3, MCH 32.6 H, MCHC 35.3, RDW Std Deviation 47.8 H, RDW Coeff of Lalitha 14.2, Plt Count 231, MPV 9.2, Immature Gran % (Auto) 0.300, Neut % (Auto) 63.5, Lymph % (Auto) 27.2, Otoe % (Auto) 7.5, Eos % (Auto) 0.7, Baso % (Auto) 0.8, Absolute Neuts (auto) 5.6, Absolute Lymphs (auto) 2.38, Nucleated RBC % 0 11/15/20 22:00: Sodium 133 L, Potassium 3.7, Chloride 95 L, Carbon Dioxide 29.0, Anion Gap 9, BUN 12, Creatinine 1.00, Estim Creat Clear Calc 86.27, Est GFR (MDRD) Af Amer 107, Est GFR (MDRD) Non-Af 88, BUN/Creatinine Ratio 12.0, Glucose 95, Calcium 8.7, Total Bilirubin 0.30, AST 39 H, ALT 47, Alkaline Phosphatase 56, Total Protein 8.0, Albumin 4.2, Globulin 3.8, Albumin/Globulin Ratio 1.1 11/15/20 22:00: Ethyl Alcohol 323.0 H* Current Medications Albuterol Sulfate (Albuterol 2.5 Mg/3 Ml Vial.Neb.) 2.5 mg INHALATION Q2H PRN PRN PRN Reason: SOB/WHEEZING Atenolol (Atenolol 100 Mg Tablet) 100 mg PO QHS [facility] Buspirone HCl (Buspirone 5 Mg Tablet) 7.5 mg PO BID [facility] Last Admin: 11/16/20 10:31 Dose: 7.5 mg Documented by: Dicyclomine HCl (Dicyclomine 10 Mg Capsule) 20 mg PO Q6H PRN PRN PRN Reason: abdominal discomfort Last Admin: 11/16/20 02:40 Dose: 20 mg Documented by: Folic Acid (Folic Acid 1 Mg Tablet) 1 mg PO DAILY@0800 [facility] Last Admin: 11/16/20 08:09 Dose: 1 mg Documented by: Gabapentin (Gabapentin 300 Mg Capsule) 300 mg PO Q8H PRN PRN PRN Reason: moderate to severe anxiety Last Admin: 11/16/20 06:38 Dose: 300 mg Documented by: Hydroxyzine Pamoate (Hydroxyzine Jackelin 25 Mg Capsule) 50 mg PO Q4H PRN PRN PRN Reason: mild anxiety Last Admin: 11/16/20 02:40 Dose: 50 mg Documented by: Lisinopril (Lisinopril 20 Mg Tablet) 20 mg PO DAILY [facility] Last Admin: 11/16/20 10:32 Dose: 20 mg Documented by: Lisinopril (Lisinopril 10 Mg Tablet) 10 mg PO QHS [facility] Loperamide HCl (Loperamide 2 Mg Capsule) 2 mg PO Q4H PRN PRN PRN Reason: LOOSE STOOLS Loratadine (Loratadine 10 Mg Tablet) 10 mg PO DAILY PRN PRN PRN Reason: allergies Ondansetron HCl (Ondansetron 8 Mg Tablet) 8 mg PO Q8H PRN PRN PRN Reason: NAUSEA Last Admin: 11/15/20 23:22 Dose: 8 mg Documented by: Pantoprazole Sodium (Pantoprazole Sodium 40 Mg Tablet) 40 mg PO DAILY [facility] Last Admin: 11/16/20 10:31 Dose: 40 mg Documented by: Phenobarbital (Phenobarbital 32.4 Mg Tablet) 97.2 mg PO Q4H [facility]; Taper Stop: 11/20/20 07:29 Last Admin: 11/16/20 06:38 Dose: 97.2 mg Documented by: Sodium Chloride (0.9% Saline Lock 10 Ml Syringe) 10 - 40 ml IV UD PRN PRN Reason: SALINE FLUSH Thiamine HCl ([facility] Hydrochloride 100 Mg Tablet) [facility] Last Admin: 11/16/20 08:09 Dose: 100 mg Documented by: Trazodone HCl (Trazodone 50 Mg Tablet) 50 mg PO QHS PRN PRN PRN Reason: insomnia Last Admin: 11/15/20 23:22 Dose: 50 mg Documented by: Venlafaxine HCl (Venlafaxine Xr 150 Mg Capsule) 150 mg PO DAILY [facility] Last Admin: 11/16/20 10:31 Dose: 150 mg Documented by: STROKE Vital Signs/Narrative: Vital Signs Temp Pulse Resp BP Pulse Ox 11/16/20 10:00 98.9 F 80 18 140/80 H 98 11/16/20 09:26 98.9 F 111 H 20 H 147/82 H 100 11/16/20 07:24 92 Medical Necessity - Tobacco Use Smoking Status: Light Smoker (<10/day) Tobacco Use: Non-smoker Assessment/Plan All Active Problems (Last Reviewed 11/15/20 @ 23:[address] Reynaldo Nguyen MD) Alcoholism (Acute) Gallstone (Resolved) #Acute alcohol withdrawal complains of tremors today CIWA score today is 5 on alcohol withdrawal protocol with phenobarbital on thiamine, folic acid and multivites #Rectal bleeding he had rectal bleeding this morning and says it was painful. he does have a history of hemorrhoids, but says he usually doesn't have such [pain consult general surgery anusol for suspected hemorrhoids. # Hypertension: on lisinopril and atenolol #Depression and anxiety: on venlafaxine and buspirone #EBONY: On CPAP nightly. DVT prophylaxis; low risk, encourage to ambulate Disposition: patient left against medical advice Inpatient E&M: 73358 Subs Hosp L2
--- NOTE | 2020-11-16 12:17 | CASEMGMT ---
SW received message from Dariana at [facility], she states pt attends [facility] and plans to meet with his counselor there after discharge from her, is going to speak with his counselor about starting their intensive outpt program. RANDI Zhong
--- NOTE | 2020-11-16 14:11 | PCM.DC.SUM ---
Discharge Date and Diagnosis - Problem List Patient Problems: Active and Suspected Problems (Last Reviewed 11/15/20 @ 23:[address] Reynaldo Nguyen MD) Alcoholism (Acute) Date of Admission: 11/15/20 Date of Discharge: 11/16/20 - Primary Discharge Diagnosis Acute Problems: Active Problems (Last Reviewed 11/15/20 @ 23:[address] Reynaldo Nguyen MD) acute alcohol withdrawal - Secondary Discharge Diagnosis Chronic Problems: Chronic Problems (Last Reviewed 11/15/20 @ 23:[address] Reynaldo Nguyen MD) EBONY (obstructive sleep apnea) (Chronic) AHI 8.6 GERD (gastroesophageal reflux disease) (Chronic) Hypertension (Chronic) Alcohol abuse (Chronic) Fatty infiltration of liver (Chronic) Obesity (Chronic) Abnormal LFTs (Chronic) Anxiety and depression (Chronic) Eosinophilic esophagitis (Chronic) Hospital Course and Treatment Operations: None Procedures: None Summary of Care Provided: The patient is a 40 year old M with a past medical history as outlined was admitted through the ED on 11/15/2020 for acute alcohol withdrawal. He states he went through detox in April 2020 in [place]. He had been fine since then but relapsed about 2 weeks ago and had been drinking heavily for the past 4 days and drank about 12 beers daily. His last drink was about an hour prior to admission. He was admitted and managed for acute alcohol withdrawal. He was started on alcohol withdrawal protocol with barbital. Patient subsequently complained of rectal bleeding which she thought was due to hemorrhoids but said it was more painful than his usual hemorrhoidal bleeding. General surgery was consulted. Patient had informed physician that he had to leave on 11/17/2020 because he be home urgently. Patient was counseled that he needed to be in the hospital for at least 3 days to go to the detox process that he would not be ready by 11/17/2020. Patient was informed that if he insisted on leaving, he would have to sign out AMA. Patient expressed agreement with this. Patient however proceeded to sign out AMA on 11/16/2020. He left before he could be reviewed by general surgery. Patient was seen and examined prior to him signing out AMA. He complained of the rectal bleeding as mentioned. He felt he was having some tremors and felt anxious. Review of systems otherwise negative. O/E: Vital Signs Temp Pulse Resp BP Pulse Ox 98.9 F 80 18 140/80 H 98 11/16/20 10:00 11/16/20 10:00 11/16/20 10:00 11/16/20 10:00 11/16/20 10:00 General: Alert, Oriented x3, Cooperative, No apparent distress HEENT: Atraumatic, PERRLA, EOMI, Normocephalic Oral: Dry Mucosa Neck: Supple, No JVD, Negative Carotid Bruits Lungs: Clear to auscultation, Normal air movement, No rhonchi, No wheeze, No rales Cardiovascular: Regular rate, Regular Rhythm, Normal S1, Normal S2, No murmurs Abdomen: Bowel Sounds Present, Soft, Non Tender, Non-Distended, No Hepato-splenomegaly Extremities: No clubbing, No cyanosis, No edema, Capillary Refill Less than 3 Seconds Skin: No rashes, No breakdown Musculoskeletal: No Tenderness to Palpation of Joints or Extremities Lymphatic: No Cervical, Supraclavicular, or Inguinal Adenopathy Neurological: Cranial nerves II-XII grossly intact, Neuro grossly intact, Motor Exam 5/5 strength throughout Psych/Mental Status: Anxious, Alert and oriented to time, place, person, mood and affect Patient left AMA Patient Problems: Active and Suspected Problems (Last Reviewed 11/15/20 @ 23:[address] Reynaldo Nguyen MD) Alcoholism (Acute) - Physical Exam Vitals/I&O's: Vital Signs Temp Pulse Resp BP Pulse Ox 98.9 F 80 18 140/80 H 98 11/16/20 10:00 11/16/20 10:00 11/16/20 10:00 11/16/20 10:00 11/16/20 10:00 Oxygen Delivery Method Room Air Weight: 222 lb 7.143 oz Body Mass Index (BMI) 37.0 Intake and Output for Last 24 Hours 11/14/20 11/15/20 11/16/20 23:59 23:59 23:59 Intake Total 400 / 400 Output Total 0 / 0 Balance 400 / 400 Laboratory Results 11/15/20 21:50: Urine Opiates Screen NEGATIVE, Urine Methadone Screen NEGATIVE, Ur Barbiturates Screen NEGATIVE, Ur Phencyclidine Scrn NEGATIVE, Ur Amphetamines Screen NEGATIVE, U Methamphetamin-MDMA NEGATIVE, U Benzodiazepines Scrn NEGATIVE, Urine Cocaine Screen NEGATIVE, U Cannabinoids Screen NEGATIVE, Ur Drug Screen Comment 11/15/20 22:00: WBC 8.8, RBC 4.69, Hgb 15.3, Hct 43.3, MCV 92.3, MCH 32.6 H, MCHC 35.3, RDW Std Deviation 47.8 H, RDW Coeff of Lalitha 14.2, Plt Count 231, MPV 9.2, Immature Gran % (Auto) 0.300, Neut % (Auto) 63.5, Lymph % (Auto) 27.2, [place] % (Auto) 7.5, Eos % (Auto) 0.7, Baso % (Auto) 0.8, Absolute Neuts (auto) 5.6, Absolute Lymphs (auto) 2.38, Nucleated RBC % 0 11/15/20 22:00: Sodium 133 L, Potassium 3.7, Chloride 95 L, Carbon Dioxide 29.0, Anion Gap 9, BUN 12, Creatinine 1.00, Estim Creat Clear Calc 86.27, Est GFR (MDRD) Af Amer 107, Est GFR (MDRD) Non-Af 88, BUN/Creatinine Ratio 12.0, Glucose 95, Calcium 8.7, Total Bilirubin 0.30, AST 39 H, ALT 47, Alkaline Phosphatase 56, Total Protein 8.0, Albumin 4.2, Globulin 3.8, Albumin/Globulin Ratio 1.1 11/15/20 22:00: Ethyl Alcohol 323.0 H* Discharge Diet: Low fat/ Low Cholesterol Home Medications: Medications to take at Discharge albuterol sulfate 90 mcg/actuation aerosol inhaler 2 puff INHALATION 6XD PRN #8.5 g 01/27/20 venlafaxine 150 mg capsule,extended release 24 hr 150 mg PO DAILY #90 cap 03/06/20 lisinopril 20 mg tablet 30 mg PO DAILY 90 Days #135 tab 03/20/20 trazodone 50 mg tablet 50 mg PO QHS PRN #90 tab 04/04/20 loratadine 10 mg tablet 10 mg PO DAILY PRN #90 tab 07/04/20 buspirone 7.5 mg tablet 7.5 mg PO BID #60 tab 10/01/20 lansoprazole 30 mg capsule,delayed release 30 mg PO DAILY #30 cap 10/01/20 atenolol 100 mg tablet 100 mg PO QHS #30 tab 10/23/20 Ondansetron [Zofran Odt] 4 mg PO Q8H PRN PRN #10 tab 11/13/20 Primary Care Physician: Jacquelin Quezada MD [Primary Care Provider] - Please follow up with your Primary Care Physician in: 1-2 weeks Disposition: Against Medical Advice Minutes spent on discharge:: 35 Patient Condition:: Stable Medical Necessity - Tobacco Use Smoking Status: Light Smoker (<10/day) Tobacco Use: Non-smoker Meaningful Use Info Meaningful Use Diagnoses (Choose all that apply): None applicable Inpatient E&M: [address] [facility]
== END 2020-11-16 13:41 | disposition left against medical advice (07) ==
LOC: ED 21:59 → MS3 22:07
PROVIDERS: Admitting Provider Hospitalist; Emergency Provider Emergency Medicine; PCP Internal Medicine; Visit Provider Student in an Organized Health Care Education/Training Program
DX: F10.239 Alcohol dependence with withdrawal, unspecified (principal); G47.33 Obstructive sleep apnea (adult) (pediatric); I10 Essential (primary) hypertension; K21.9 Gastro-esophageal reflux disease without esophagitis; E66.01 Morbid (severe) obesity due to excess calories; Z68.35 Body mass index [BMI] 35.0-35.9, adult; K76.0 Fatty (change of) liver, not elsewhere classified; F41.9 Anxiety disorder, unspecified; F32.9 Major depressive disorder, single episode, unspecified; Z79.899 Other long term (current) drug therapy; K62.5 Hemorrhage of anus and rectum; Z87.19 Personal history of other diseases of the digestive system; K64.9 Unspecified hemorrhoids; Z87.891 Personal history of nicotine dependence
CPT/HCPCS: 80053; 80307; 80320; 85025; 99218; 99284; 99406; A4216; G0378; G0480

== ENCOUNTER 2020-12-08 23:37 | Emergency (ER) | payer OTHER, SELFPAY ==
[2020-11-27 08:25] VITALS: BMI 36.9
[2020-12-08 23:37] VITALS: BP 168/117; PULSE 96; RESP 18; TEMP 36.2; O2SAT 97; BMI 35.7
--- NOTE | 2020-12-09 00:22 | ED.DCSUM_ITS ---
History of Present Illness Chief Complaint: ETOH Intox Informant: Patient Narrative: Patient presents grossly intoxicated after driving to the hospital himself asking for detox. He was just admitted for detox 2 weeks ago and shortly after being admitted signed out AGAINST MEDICAL ADVICE. He denies any recent illness or injury. He states he was doing well for 4 or 5 months, and then fell off the wagon several weeks ago. Denies any other drug use. Denies any other medical problems. - Past Medical History (1) Alcoholism Status: Chronic (2) Anxiety and depression Status: Chronic (3) Eosinophilic esophagitis Status: Chronic (4) GERD (gastroesophageal reflux disease) Status: Chronic (5) Hypertension Status: Chronic (6) EBONY (obstructive sleep apnea) Status: Chronic Comment: AHI 8.6 Past Medical History - Allergies and Home Meds Allergies/Adverse Reactions: Allergies oxaprozin [From Daypro] Allergy (Verified 12/08/20 23:39) Hives Primary Care Physician: Jacquelin Quezada MD [Primary Care Provider] - [facility] [STAFF PHYSICIAN] - As soon as possible Smoking Status: Current every day smoker Alcohol: Heavy - Patient cannot provide details - Family History Maternal Family History: Family History (Last Reviewed 11/15/20 @ 23:[address] Reynaldo Nguyen MD) Other Anxiety Hypertension Family History: Reports: - - Alcohol abuse Paternal Family History: Family History (Last Reviewed 11/15/20 @ 23:[address] Reynaldo Nguyen MD) Other Anxiety Hypertension Family History: Reports: Heart Disease, - - Chronic alcohol disease/alcoholic hepatitis Review of Systems General: Denies: Chills, Fever, Sweats Eyes: Denies: Visual changes - bilaterally, Diplopia ENT: Denies: Rhinorrhea, Sore throat Cardiovascular: Denies: Chest pain, Palpitations Respiratory: Denies: Dyspnea, Cough, Dyspnea on exertion Gastrointestinal: Denies: Abdominal pain, Nausea, Vomiting, Diarrhea, Melena, Hematochezia Genitourinary: Denies: Dysuria, Hematuria, Frequency Musculoskeletal: Denies: Back pain, Swelling, Extremity Pain Skin: Denies: Rash, Wounds Neurological: Denies: Headache, Weakness, Numbness Psych: Denies: Suicidal thoughts, Suicidal ideations Physical Exam Vital Signs/Narrative: Vital Signs Temp Pulse Resp BP Pulse Ox 12/08/20 23:37 97.1 F L 96 18 168/117 H 97 Inital Vital Signs reviewed: Yes General: Well nourished, Well developed, Obese, No Acute Distress Head: Normocephalic, Atraumatic Eyes: Perrl, EOMI - w/ horizontal nystagmus ENT: Moist mucous membranes, No rhinorrhea Neck: Supple, Nontender Cardiovascular: Regular rate, Regular rhythm, No murmurs Respiratory: No distress, CTA bilaterally, Chest nontender Abdomen: Soft, Nontender, Nondistended, Normal bowel sounds Back: Nontender, Normal Inspection Extremities: Nontender, No edema Skin: Normal color, No rash Neurological: Alert, Oriented x3, Cranial nerves II-XII grossly intact, Normal Strength, Normal Sensation, - - ataxic and grossly intoxicated Psychological: Normal affect, Normal Mood Diagnostic/Tx/Re-eval - Medical Decision Making Discussed with hospitalist, however per hospital policy they say the patient is not able to be admitted since he was admitted for detox and left AGAINST MEDICAL ADVICE within the last 30 days. The patient drove here and does not have a ride home, and he is grossly intoxicated and cannot safely drive in my clinical judgment. Therefore although he was upset about this, he was advised that he must stay here and rest/sleep until he is sober or can find a ride home. At one point he felt nauseated, likely due to large amount of alcohol intake, so he was given some Zofran which helped. He will be monitored and handed off to the morning shift at the end of the night, since he will unlikely be sober enough to drive by white metal [employer], and as I discussed with the patient and placed in his discharge instructions, he is referred to [facility], and advised also that there may be other hospitals that offer detox but until he is outside of the 30 days, he may continue to be denied admission for inpatient detox at this hospital. At the end of the morning shift patient is acting more reasonable. He is ambulatory and stable now. He wants to call a cab which I think is fine. He was given appropriate resources for addiction. ED Disposition - Plan for ED Patient: Disposition: Home or Assisted Living Diagnosis: Alcohol intoxication, Alcoholism Instructions: ED Alcohol Intoxication Referrals: Jacquelin Quezada MD [Primary Care Provider] - [facility] [STAFF PHYSICIAN] - As soon as possible
[2020-12-09] MEDS: Ondansetron ODT 4 MG Tablet 8 MG PO (01:22)
[2020-12-09 03:25] VITALS: RESP 14
[2020-12-09 04:39] VITALS: RESP 16
[2020-12-09 05:30] VITALS: RESP 16
[2020-12-09 06:32] VITALS: RESP 14
--- NOTE | 2020-12-09 08:03 | ED.RN ---
SPOKE WITH PATIENT AT THIS TIME WITH DECISION ABOUT REHAB. 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 PATIENT WANTS THE HELP BUT NOT ABLE TO STAY TO RECEIVE IT. SPOKE WITH CAR MECHANIC AND DISCUSSED THE CASE. PATIENT TO BE REFEREED TO 180 FOR ASSISTANCE AND TO COME BACK TO ER IF CONDITION WORSENS. PATIENT REQUESTING MEDICATION FOR NAUSEA. WILL SPEAK TO THE DOCTOR AND TRY TO OBTAIN MEDICINE. WILL DISCUSS PLAN OF CARE OF WITH PATIENT
[2020-12-09] MEDS: Ondansetron ODT 4 MG Tablet PO (08:12)
--- NOTE | 2020-12-09 08:18 | ED.RN ---
SPOKE WITH [facility] PATIENT NAVIGATOR AT THIS TIME. PATIENT GIVEN INFORMATION FOR [facility] IN [place] AND [facility] IN [place] FOR REHAB. PATIENT PLAN OF CARE DISCUSSED WITH HIM AT THIS TIME. PATIENT HAS CHOSEN TO GO HOME AT THIS TIME
[2020-12-09 08:20] VITALS: BP 168/98; PULSE 68; RESP 16; O2SAT 98
== END 2020-12-09 08:20 | disposition home or self-care (01) ==
PROVIDERS: Emergency Provider Emergency Medicine; PCP Internal Medicine
DX: F10.229 Alcohol dependence with intoxication, unspecified (principal); K21.9 Gastro-esophageal reflux disease without esophagitis; I10 Essential (primary) hypertension; F17.200 Nicotine dependence, unspecified, uncomplicated; E66.9 Obesity, unspecified
CPT/HCPCS: 99283; A4216

== ENCOUNTER → 2021-02-26 09:26 | Outpatient (CLI) | payer BC, SELFPAY ==
[2020-12-14 08:19] VITALS: BMI 36.6
[2021-02-26 12:09] LABS: Absolute Lymphocyte Count 1.64 X10^3/uL (0.83-4.51); Absolute Neutrophil Count 2.8 X10^3/uL (2.0-7.7); Basophil# 0.07 X10^3/uL; Basophil% 1.1 % (0-1); Eosinophil# 0.79 X10^3/uL; Eosinophils% 12.9 % (0-5); Hematocrit 44.1 % (40-54); Hemoglobin 15.1 g/dL (13.0-16.5); Lymphocyte # 1.64 X10^3/ul (4.0); Lymphocyte % 26.8 % (19-41); Mean Corp Hgb Conc 34.2 g/dL (32-36); Mean Corpuscular Hgb 31.7 pg (27.0-32.0); Mean Corpuscular Volume 92.6 fL (80-94); Mean Platelet Vol. 10.8 fl (6.2-12.0); Monocyte# 0.78 X10^3/uL; Monocyte% 12.7 % (0-10); NRBC Flagged by Analyzer 0 % (0-5); Neutrophil % 45.8 % (47-70); Platelet Count 291 K/mm3 (150-450); RBC Distribution Width CV 12.9 % (11.6-14.6); RBC Distribution Width SD 44.1 fl (35.1-43.9); Red Blood Count 4.76 M/mm3 (4.6-6.2); White Blood Count 6.1 K/mm3 (4.4-11.0)
[2021-02-26 12:18] LABS: Anion Gap 5 (5-15); BUN 22 mg/dL (7-18); BUN/Creat Ratio 19.5 RATIO (10-20); Calcium,Total 9.3 mg/dL (8.5-10.1); Chloride 99 mmol/L (98-107); Cholesterol 222 mg/dL (200); Creatinine, Serum 1.13 mg/dL (0.70-1.30); EST Glomerular Filtration Rate 77 mL/min (>60); Est Glom Filt Rate - Afr Amer 93 mL/min (>60); Glucose 100 mg/dL (74-106); High Density Lipoprotein 54 mg/dL; Potassium 4.6 mmol/L (3.5-5.1); Sodium Level 135 mmol/L (136-145); Triglycerides 195 mg/dL; Very Low Density Lipoprotein 39 mg/dL (5-40)
== END ==
PROVIDERS: PCP Internal Medicine; Referring Provider Internal Medicine; Visit Provider Internal Medicine
DX: I10 Essential (primary) hypertension (principal); F32.9 Major depressive disorder, single episode, unspecified; F41.9 Anxiety disorder, unspecified
CPT/HCPCS: 36415; 80048; 80061; 85025

== ENCOUNTER → 2021-03-18 07:15 | Outpatient (CLI) | payer BC, SELFPAY ==
[2020-12-14 08:19] VITALS: BMI 36.6
--- NOTE | 2021-03-18 08:39 | NEURO_ITS ---
NCS and/or EMG Patient Report Ordering Doctor: Jacquelin Quezada DATE OF SERVICE: 03/18/21 Indication: Intermittent, bilateral hand numbness and tingling (right greater than left) for several years. Symptoms are involving primarily digits 2-4. Sleep, driving, repetitive activity exacerbate symptoms. Evaluate for median nerve entrapment at the wrist. Findings: Nerve conduction studies were performed in the right and left upper extremities. The right median motor study recording the abductor pollicis brevis showed a n ormal amplitude, prolonged distal latency and slowed conduction velocity. The right ulnar motor study recording the abductor digiti minimi showed a normal amplitude, normal distal latency and normal conduction velocity. No conduction block or focal slowing was present across the elbow. Right median-ulnar lumbrical / interosseous motor latencies showed a prolonged median latency compared to the ulnar. The right median sensory response recording digit two showed a reduced amplitude, prolonged latency and markedly slowed conduction velocity. The right ulnar sensory response recording digit five showed a normal amplitude, latency and conduction velocity. The right radial sensory response recording over the extensor snuff box showed a normal amplitude, latency and conduction velocity. The left median motor study recording the abductor pollicis brevis showed a borderline amplitude, prolonged distal latency and slowed conduction velocity. The left ulnar motor study recording the abductor digiti minimi showed a normal amplitude, normal distal latency and normal conduction velocity. No conduction block or focal slowing was present across the elbow. Left median-ulnar lumbrical / interosseous motor latencies showed a prolonged median latency compared to the ulnar. The left median sensory response recording digit two showed a borderline amplitude, prolonged latency and markedly slowed conduction velocity. The left ulnar sensory response recording digit five showed a normal amplitude, latency and conduction velocity. The left radial sensory response recording over the extensor snuff box showed a normal amplitude, latency and conduction velocity. Needle EMG of the right upper extremity and cervical paraspinal muscles was performed. No denervation was seen in any muscle. Motor units in the abductor pollicis brevis were mildly large amplitude and long duration with normal recruitment. All other muscles revealed normal motor unit morphology, activation and recruitment patterns. Limited needle EMG of the left abductor pollicis brevis muscle was performed. Active denervation was present. Motor units were slightly long duration and polyphasic with normal recruitment and activation. Impression: This is an abnormal study. 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 The pathophysiology is primarily demyelinating, though there is evidence of secondary axonal loss and ongoing denervation of the left thenar muscles. These findings are compatible with the clinical diagnosis of carpal tunnel syndrome. In addition, there is no electrophysiologic evidence of cervical radiculopathy or other entrapment neuropathy in the right upper extremity. Jeffery Fernandez D.O.
== END ==
PROVIDERS: PCP Internal Medicine; Referring Provider Internal Medicine; Visit Provider Internal Medicine
DX: G56.03 Carpal tunnel syndrome, bilateral upper limbs (principal)
CPT/HCPCS: 95885; 95886; 95912

== ENCOUNTER → 2021-07-17 10:05 | Outpatient (CLI) | payer BC, SELFPAY ==
[2021-07-17 13:05] LABS: ALB/GLOB Ratio 1.2 RATIO (0.9-2.4); AST(SGOT) 22 U/L (15-37); Alanine Aminotransfer ALT/SGPT 33 U/L (16-61); Albumin, Serum 3.8 g/dL (3.2-5.0); Alkaline Phosphatase 45 U/L (45-117); Anion Gap 8 (5-15); BUN 18 mg/dL (7-18); Calcium,Total 8.6 mg/dL (8.5-10.1); Chloride 103 mmol/L (98-107); Creatinine, Serum 1.06 mg/dL (0.70-1.30); EST Glomerular Filtration Rate 82 mL/min (>60); Est Glom Filt Rate - Afr Amer 100 mL/min (>60); Globulin 3.3 g/dL (2.2-4.2); Glucose 96 mg/dL (74-106); Potassium 4.5 mmol/L (3.5-5.1); Protein, Total 7.1 g/dL (6.4-8.2); Sodium Level 135 mmol/L (136-145); Thyroid Stim Hormone (TSH) 1.31 uIU/mL (0.358-3.74)
[2021-07-17 13:53] LABS: Hepatitis B Surface Antigen Non-Reactive (Nonreactive); Hepatitis C Antibody Non-Reactive (Nonreactive)
== END ==
PROVIDERS: PCP Internal Medicine; Visit Provider Nurse Practitioner Family
DX: R61 Generalized hyperhidrosis (principal); R79.89 Other specified abnormal findings of blood chemistry
CPT/HCPCS: 36415; 80053; 84443; 86803; 87340

== ENCOUNTER 2021-10-07 12:51 | Inpatient (IN) | payer SELFPAY ==
[2021-10-07] VITALS (7 sets, daily range): BP systolic 125–153; BP diastolic 84–117; PULSE 103–130; RESP 14–20; TEMP 36.4–37.2; O2SAT 95–98; BMI 35.5; BMI 37.3
[2021-10-07 14:39] LABS: Absolute Lymphocyte Count 1.86 X10^3/uL (0.83-4.51); Absolute Neutrophil Count 4.8 X10^3/uL (2.0-7.7); Basophil# 0.03 X10^3/uL; Basophil% 0.4 % (0-1); Eosinophil# 0.02 X10^3/uL; Eosinophils% 0.3 % (0-5); Hematocrit 41.7 % (40-54); Hemoglobin 15.6 g/dL (13.0-16.5); Lymphocyte # 1.86 X10^3/ul (0.83-4.51); Lymphocyte % 25.9 % (19-41); Mean Corp Hgb Conc 37.4 g/dL (32-36); Mean Corpuscular Hgb 32.3 pg (27.0-32.0); Mean Corpuscular Volume 86.3 fL (80-94); Mean Platelet Vol. 9.1 fl (6.2-12.0); Monocyte# 0.47 X10^3/uL; Monocyte% 6.6 % (0-10); NRBC Flagged by Analyzer 0 % (0-5); Neutrophil # 4.76 X10^3/uL (2.7-7.7); Neutrophil % 66.4 % (47-70); Platelet Count 321 K/mm3 (150-450); RBC Distribution Width CV 11.9 % (11.6-14.6); Red Blood Count 4.83 M/mm3 (4.6-6.2); White Blood Count 7.2 K/mm3 (4.4-11.0)
[2021-10-07 14:45] LABS: Bacteria 0 SEEN /hpf (None Seen); Mucous, Urine 0 SEEN /hpf (<or=2+); Red Blood Cells-Urine 0 SEEN /hpf (0-5); Squamous Epithelial Cells - UA 0 SEEN /hpf (0-5); White Blood Cells 0 SEEN /hpf (0-5)
[2021-10-07 14:46] LABS: Color, Urine Straw (Yellow); Glucose, Dipstick Normal (Normal); Ketone-Dipstick 5 mg/dl (Negative); Leukocyte Esterase-Dipstick 25 /ul (Negative); Nitrite-Dipstick Negative (Negative); Occult Blood-Urine Negative /ul (Negative); Protein-Dipstick Negative (Negative); Urine Bilirubin Dipstick Negative (Negative); Urine Clarity Clear (Clear); Urine Urobilinogen Normal (Normal)
[2021-10-07 14:56] LABS: ALB/GLOB Ratio 1.2 RATIO (0.9-2.4); AST(SGOT) 30 U/L (15-37); Alanine Aminotransfer ALT/SGPT 39 U/L (16-61); Albumin, Serum 4.5 g/dL (3.2-5.0); Alkaline Phosphatase 59 U/L (45-117); Anion Gap 15 (5-15); BUN 10 mg/dL (7-18); BUN/Creat Ratio 11.2 RATIO (10-20); Calcium,Total 8.7 mg/dL (8.5-10.1); Chloride 89 mmol/L (98-107); Creatinine, Serum 0.89 mg/dL (0.70-1.30); EST Glomerular Filtration Rate 100 mL/min (>60); Est Glom Filt Rate - Afr Amer 122 mL/min (>60); Estimated Creatinine Clearance 100.56 ml/min; Globulin 3.9 g/dL (2.2-4.2); Glucose 105 mg/dL (74-106); Lipase 353 U/L (73-393); Potassium 4.4 mmol/L (3.5-5.1); Protein, Total 8.4 g/dL (6.4-8.2); Sodium Level 124 mmol/L (136-145)
[2021-10-07 15:01] LABS: Amphetamine Urine VISTA NEGATIVE (<1000 ng/mL); Barbiturate Urine VISTA NEGATIVE (< 200 ng/mL); Benzodiazepine Urine VISTA NEGATIVE (< 200 ng/mL); Cocaine Urine VISTA NEGATIVE (< 300 ng/mL); Ecstacy Urine VISTA NEGATIVE (< 500 ng/mL); Methadone Urine VISTA NEGATIVE (< 300 ng/mL); PCP Urine VISTA NEGATIVE (< 25 ng/mL); THC Urine VISTA NEGATIVE (< 50 ng/mL); Vista UDS pH Range 6
[2021-10-07] MEDS: Ondansetron 4 MG/2 ML Vial IV (15:14)
[2021-10-07] MEDS: 0.9% Normal Saline 1,000 ML 1000 ML IV (15:14)
--- NOTE | 2021-10-07 15:14 | EDS_ITS ---
HPI History of Present Illness Chief Complaint: ETOH Intox Informant: patient Onset/Context/Timing Onset: Today Context: Gradual Onset Timing: Continuous Associated Symptoms Associated Symptoms: Positive for vomiting*, diarrhea* and palpatations; Negative for fever*, rash*, seizure, tremor, change in mental status, trauma, suicidal ideation and homicidal ideation Narrative Narrative: Patient presents requesting detox from alcohol. Patient states she drinks approximate 12 beers per day. Patient states he has been doing this over the last 2 weeks. Patient states that his last drink was approximately 2 hours prior to arrival. Patient has been through detox in November. Patient admits to some nausea, vomiting, and diarrhea. Patient also admits to a headache. Patient also admits to some subjective chills. Patient denies any tremors or seizures. Patient denies any suicidal or homicidal ideations. Patient does admit to some palpitations. [facility] Medical History Alcohol abuse Diaphoresis Elevated LFTs GERD (gastroesophageal reflux disease) Hypertension Home Medications albuterol sulfate 90 mcg/actuation aerosol inhaler 2 puff INHALATION 6XD PRN #8.5 g 01/27/20 [Rx Last Taken Unknown] loratadine 10 mg tablet 10 mg PO DAILY PRN #90 tab 07/04/20 [Rx Last Taken Unknown] buspirone 7.5 mg tablet 7.5 mg PO BID #60 tab 12/14/20 [Rx Last Taken Unknown] venlafaxine 150 mg capsule,extended release 24 hr 150 mg PO DAILY #90 cap 02/26/21 [Rx Last Taken Unknown] lansoprazole 30 mg capsule,delayed release 30 mg PO DAILY #90 cap 04/12/21 [Rx Last Taken Unknown] trazodone 50 mg tablet 50 mg PO QHS PRN #90 tab 07/17/21 [Rx Last Taken Unknown] atenolol 100 mg tablet 100 mg PO QHS #90 tab 09/04/21 [Rx Last Taken Unknown] lisinopril 20 mg PO DAILY 10/07/21 [History Last Taken Unknown] Allergy/AdvReac Type Severity Reaction Status Date / Time oxaprozin [From Daypro] Allergy Hives Verified 10/07/21 12:53 Family History Father Hypertension Other Anxiety Surgical History History of knee surgery History of shoulder surgery Social History household members: other details: his three children with visitation housing: house number of children: 3 current occupational status: employed current occupation: [employer] Smoking Status: Current some day smoker tobacco type: e-cigarettes alcohol intake: former details: Off x 1.5 weeks substance use type: does not use what type of physical activity do you participate in: walking frequency: 3-4 times per week do you feel safe at home: Yes ROS ROS ED Constitutional Constitutional ED: Reports chills and subjective; Denies fever(s) Eyes Eyes: Denies blurry vision or change in vision ENT ENT ED: Denies rhinorrhea or sore throat Cardiovascular Cardiovascular: Reports palpitations; Denies chest pain Respiratory/Chest Respiratory/Chest: Denies cough or dyspnea Gastrointestinal Gastrointestinal: Reports diarrhea, nausea and vomiting Genitourinary Genitourinary ED: Denies dysuria or hematuria Musculoskeletal Musculoskeletal: Denies back pain or neck pain Integumentary Denies abscess or rash Neurologic Neurologic: Reports headache(s); Denies weakness Allergic/Immunologic Allergic/Immunologic ED: Denies mouth swelling or urticaria EXAM Physical Exam Const Vital Signs: 10/07/21 12:51 10/07/21 13:53 10/07/21 15:14 Temperature 97.6 F L 98.9 F Temperature Source Temporal Temporal Pulse Rate 130 H 103 H 118 H Respiratory Rate 20 H 16 14 Blood Pressure 153/117 H 150/100 H 125/93 H Blood Pressure Mean 129 116 103 Blood Pressure Source Monitor Blood Pressure Position Supine Blood Pressure Location Right Arm Pulse Ox 98 95 95 Oxygen Delivery Method Room Air Room Air Room Air Positive well nourished and well developed General Appearance ED: well developed HEENT Reports moist mucous membranes Neck supple and no JVD Resp normal respiratory effort and clear to auscultation bilaterally Cardio regular rhythm and no murmurs Rate: tachycardic GI normal to inspection, nondistended, normoactive bowel sounds, soft to palpation and non-tender Palpation: soft Extremity normal to inspection General Extremety ED: Negative for edema or tenderness General Extremity: Negative for edema Neuro oriented x3, CN's II-XII intact bilaterally and no sensory deficits noted Sensorium / Orientation: alert Motor Exam: strength 5/5 throughout Psych mental status grossly normal Skin no rashes or lesions noted MDM MDM MDM Narrative Medical decision making narrative: Patient was given IV fluids here. Patient was given a dose of Zofran and phenobarbital. CBC was within normal limits. Comprehensive metabolic profile showed a sodium of 124 and a CO2 of 20. Chloride was 89. The remainder was within normal limits. Urine tox screen was negative. Lipase was normal. Case was discussed with the hospitalist. He will admit the patient for detox. Patient understood and was agreeable with the plan. All questions were answered. Lab Data Attestation: I reviewed the patient's lab results. Labs: Laboratory Results - last 24 hr 10/07/21 10/07/21 10/07/21 14:28 14:28 14:30 WBC 7.2 RBC 4.83 Hgb 15.6 Hct 41.7 MCV 86.3 MCH 32.3 H MCHC 37.4 H RDW Std Deviation 38.0 RDW Coeff of Lalitha 11.9 Plt Count 321 MPV 9.1 Immature Gran % (Auto) 0.400 Neut % (Auto) 66.4 Lymph % (Auto) 25.9 [place] % (Auto) 6.6 Eos % (Auto) 0.3 Baso % (Auto) 0.4 Absolute Neuts (auto) 4.8 Absolute Lymphs (auto) 1.86 Nucleated RBC % 0 Sodium 124 L Potassium 4.4 Chloride 89 L Carbon Dioxide 20.0 L Anion Gap 15 BUN 10 Creatinine 0.89 Estim Creat Clear Calc 100.56 Est GFR (MDRD) Af Amer 122 Est GFR (MDRD) Non-Af 100 BUN/Creatinine Ratio 11.2 Glucose 105 Calcium 8.7 Total Bilirubin 0.60 AST 30 ALT 39 Alkaline Phosphatase 59 Total Protein 8.4 H Albumin 4.5 Globulin 3.9 Albumin/Globulin Ratio 1.2 Lipase 353 Urine Color Straw Urine Clarity Clear Urine pH 6.0 Ur Specific [place] 1.010 Urine Protein Negative Urine Glucose (UA) Normal Urine Ketones 5 H Urine Occult Blood Negative Urine Nitrite Negative Urine Bilirubin Negative Urine Urobilinogen Normal Ur Leukocyte Esterase 25 H Urine RBC 0 SEEN Urine WBC 0 SEEN Ur Squamous Epith Cells 0 SEEN Urine Bacteria 0 SEEN Urine Mucus 0 SEEN Urine Opiates Screen Urine Methadone Screen Ur Barbiturates Screen Ur Phencyclidine Scrn Ur Amphetamines Screen U Methamphetamin-MDMA U Benzodiazepines Scrn Urine Cocaine Screen U Cannabinoids Screen Ur Drug Screen Comment 10/07/21 14:30 WBC RBC Hgb Hct MCV MCH MCHC RDW Std Deviation RDW Coeff of Lalitha Plt Count MPV Immature Gran % (Auto) Neut % (Auto) Lymph % (Auto) [place] % (Auto) Eos % (Auto) Baso % (Auto) Absolute Neuts (auto) Absolute Lymphs (auto) Nucleated RBC % Sodium Potassium Chloride Carbon Dioxide Anion Gap BUN Creatinine Estim Creat Clear Calc Est GFR (MDRD) Af Amer Est GFR (MDRD) Non-Af BUN/Creatinine Ratio Glucose Calcium Total Bilirubin AST ALT Alkaline Phosphatase Total Protein Albumin Globulin Albumin/Globulin Ratio Lipase Urine Color Urine Clarity Urine pH Ur Specific [place] Urine Protein Urine Glucose (UA) Urine Ketones Urine Occult Blood Urine Nitrite Urine Bilirubin Urine Urobilinogen Ur Leukocyte Esterase Urine RBC Urine WBC Ur Squamous Epith Cells Urine Bacteria Urine Mucus Urine Opiates Screen NEGATIVE Urine Methadone Screen NEGATIVE Ur Barbiturates Screen NEGATIVE Ur Phencyclidine Scrn NEGATIVE Ur Amphetamines Screen NEGATIVE U Methamphetamin-MDMA NEGATIVE U Benzodiazepines Scrn NEGATIVE Urine Cocaine Screen NEGATIVE U Cannabinoids Screen NEGATIVE Ur Drug Screen Comment Discharge Plan Dx/Rx/DC Orders Clinical Impression: Alcohol withdrawal, Alcohol abuse, Hyponatremia Disposition Disposition: Acute Care Hospital [facility]
--- NOTE | 2021-10-07 15:14 | PCM.HP.STD ---
Documented by User: DELON Melissa 10/07/21 15:28 HPI - General General Date of Admission: 10/07/21 Date of Service: 10/07/21 Chief Complaint: Desire for detoxification from alcohol HPI Narrative ELICEO CORTES, is a 40 M who presents with desire to detox from alcohol. Patient states that prior to approximately 1 month ago patient had been sober for over 1 year. Patient states that 1 month ago his brother unexpectedly and tragically and this caused him to relapse. Patient states that he is currently drinking a 12 pack of beer per day and his last drink was at noon today. Patient is very anxious and very tearful regarding relapse, emotional support given. 180 already aware of patient's arrival to hospital. [facility] Medical History Alcohol abuse Diaphoresis Elevated LFTs GERD (gastroesophageal reflux disease) Hypertension Home Medications albuterol sulfate 90 mcg/actuation aerosol inhaler 2 puff INHALATION 6XD PRN #8.5 g 01/27/20 [Rx Last Taken Unknown] loratadine 10 mg tablet 10 mg PO DAILY PRN #90 tab 07/04/20 [Rx Last Taken Unknown] buspirone 7.5 mg tablet 7.5 mg PO BID #60 tab 12/14/20 [Rx Last Taken Unknown] venlafaxine 150 mg capsule,extended release 24 hr 150 mg PO DAILY #90 cap 02/26/21 [Rx Last Taken Unknown] lansoprazole 30 mg capsule,delayed release 30 mg PO DAILY #90 cap 04/12/21 [Rx Last Taken Unknown] trazodone 50 mg tablet 50 mg PO QHS PRN #90 tab 07/17/21 [Rx Last Taken Unknown] atenolol 100 mg tablet 100 mg PO QHS #90 tab 09/04/21 [Rx Last Taken Unknown] lisinopril 20 mg PO DAILY 10/07/21 [History Last Taken Unknown] Allergy/AdvReac Type Severity Reaction Status Date / Time oxaprozin [From Daypro] Allergy Hives Verified 10/07/21 12:53 Family History Father Hypertension Other Anxiety Surgical History History of knee surgery History of shoulder surgery Social History household members: other details: his three children with visitation housing: house number of children: 3 current occupational status: employed current occupation: [employer] Smoking Status: Current some day smoker tobacco type: e-cigarettes alcohol intake: former details: Off x 1.5 weeks substance use type: does not use what type of physical activity do you participate in: walking frequency: 3-4 times per week do you feel safe at home: Yes ROS Constitutional Constitutional: Denies anorexia, chills, fatigue, fever(s), malaise or weakness Cardiovascular Cardiovascular: Denies chest pain, edema, palpitations or syncope Respiratory/Chest Respiratory/Chest: Denies cough, hemoptysis, shortness of breath at rest, shortness of breath with exertion or wheezing Gastrointestinal Gastrointestinal: Reports nausea; Denies abdominal pain, constipation, diarrhea or vomiting Genitourinary Genitourinary: Denies dysuria Musculoskeletal Musculoskeletal: Denies back pain, extremity pain, joint pain or joint stiffness Integumentary Integumentary: Denies dry skin Neurologic Neurologic: Denies abnormal gait, abnormal speech, confusion or dizziness Psychiatric Psychiatric: Reports anxiety and hopelessness; Denies suicidal ideation or suicidal thoughts Endocrine Endocrinology: Denies change in body appearance Hematologic/Lymphatic Hematologic/Lymphatic: Denies anemia Vital Signs Vital Signs Vital Signs: 10/07/21 12:51 10/07/21 13:53 10/07/21 15:14 Temperature 97.6 F L 98.9 F Temperature Source Temporal Temporal Pulse Rate 130 H 103 H 118 H Respiratory Rate 20 H 16 14 Blood Pressure 153/117 H 150/100 H 125/93 H Blood Pressure Mean 129 116 103 Blood Pressure Source Monitor Blood Pressure Position Supine Blood Pressure Location Right Arm Pulse Ox 98 95 95 Oxygen Delivery Method Room Air Room Air Room Air Weight Weight: 220 lb Body Mass Index (BMI) 35.5 Physical Exam Const alert and oriented x3 General Appearance: cooperative and anxious HEENT normocephalic and head/scalp atraumatic Eyes conjunctivae normal and no scleral icterus Neck supple General: trachea midline Resp normal respiratory effort, normal air movement and clear to auscultation bilaterally Cardio regular rate, regular rhythm, S1 normal heart sound, S2 normal heart sound and peripheral pulses 2+ throughout GI normal to inspection, nondistended, normoactive bowel sounds, soft to palpation and non-tender Extremity normal capillary refill and no clubbing, cyanosis or edema General Extremity: no tenderness to palpation of joints or extremities Neuro oriented x3, moves all extremities and no sensory deficits noted Motor Exam: tremor Type: Positive for resting Positive for bilateral upper extremity and bilateral lower extremity Psych cooperative Appearance: appropriate Mood & Affect: anxious Results Lab / Micro Data Result Diagrams: 10/07/21 14:28 10/07/21 14:28 Labs: Laboratory Results - last 24 hr 10/07/21 14:28: WBC 7.2, RBC 4.83, Hgb 15.6, Hct 41.7, MCV 86.3, MCH 32.3 H, MCHC 37.4 H, RDW Std Deviation 38.0, RDW Coeff of Lalitha 11.9, Plt Count 321, MPV 9.1, Immature Gran % (Auto) 0.400, Neut % (Auto) 66.4, Lymph % (Auto) 25.9, [place] % (Auto) 6.6, Eos % (Auto) 0.3, Baso % (Auto) 0.4, Absolute Neuts (auto) 4.8, Absolute Lymphs (auto) 1.86, Nucleated RBC % 0 10/07/21 14:28: Sodium 124 L, Potassium 4.4, Chloride 89 L, Carbon Dioxide 20.0 L, Anion Gap 15, BUN 10, Creatinine 0.89, Estim Creat Clear Calc 100.56, Est GFR (MDRD) Af Amer 122, Est GFR (MDRD) Non-Af 100, BUN/Creatinine Ratio 11.2, Glucose 105, Calcium 8.7, Total Bilirubin 0.60, AST 30, ALT 39, Alkaline Phosphatase 59, Total Protein 8.4 H, Albumin 4.5, Globulin 3.9, Albumin/Globulin Ratio 1.2, Lipase 353 10/07/21 14:30: Urine Opiates Screen NEGATIVE, Urine Methadone Screen NEGATIVE, Ur Barbiturates Screen NEGATIVE, Ur Phencyclidine Scrn NEGATIVE, Ur Amphetamines Screen NEGATIVE, U Methamphetamin-MDMA NEGATIVE, U Benzodiazepines Scrn NEGATIVE, Urine Cocaine Screen NEGATIVE, U Cannabinoids Screen NEGATIVE, Ur Drug Screen Comment Assessment & Plan Assessment/Plan (1) Alcohol withdrawal: QUALIFIERS: Complication of substance-induced condition: uncomplicated Qualified Code(s): F10.230 - Alcohol dependence with withdrawal, uncomplicated (2) Anxiety and depression: PLAN: 1. Desire for detoxification from alcohol -Admit to [facility] -Phenobarbital taper ordered along with supportive medications per ramp protocol -Social work consulted for coordination with 180, 180 is aware patient is here -Patient received Ativan, Zofran in ER as well as 1 L bolus 2. Hyponatremia -Likely secondary to alcohol abuse -We will recheck BMP in a.m. 3. Anxiety and depression -Continue BuSpar and Effexor 4. Hypertension -continue atenolol and lisinopril -Vital signs per protocol DVT prophylaxis-not indicated This patient was seen by DELON Melissa under the supervision of Dr. Cornelius. Documented by User: Dr. Navi Cornelius DO 10/07/21 16:11 HPI - General General Date of Admission: 10/07/21 [facility] Medical History Alcohol abuse Diaphoresis Elevated LFTs GERD (gastroesophageal reflux disease) Hypertension Home Medications albuterol sulfate 90 mcg/actuation aerosol inhaler 2 puff INHALATION 6XD PRN #8.5 g 01/27/20 [Rx Last Taken Unknown] loratadine 10 mg tablet 10 mg PO DAILY PRN #90 tab 07/04/20 [Rx Last Taken Unknown] buspirone 7.5 mg tablet 7.5 mg PO BID #60 tab 12/14/20 [Rx Last Taken Unknown] venlafaxine 150 mg capsule,extended release 24 hr 150 mg PO DAILY #90 cap 02/26/21 [Rx Last Taken Unknown] lansoprazole 30 mg capsule,delayed release 30 mg PO DAILY #90 cap 04/12/21 [Rx Last Taken Unknown] trazodone 50 mg tablet 50 mg PO QHS PRN #90 tab 07/17/21 [Rx Last Taken Unknown] atenolol 100 mg tablet 100 mg PO QHS #90 tab 09/04/21 [Rx Last Taken Unknown] lisinopril 20 mg PO DAILY 10/07/21 [History Last Taken Unknown] Allergy/AdvReac Type Severity Reaction Status Date / Time oxaprozin [From Daypro] Allergy Hives Verified 10/07/21 12:53 Family History Father Hypertension Other Anxiety Surgical History History of knee surgery History of shoulder surgery Social History household members: other details: his three children with visitation housing: house number of children: 3 current occupational status: employed current occupation: [employer] Smoking Status: Current some day smoker tobacco type: e-cigarettes alcohol intake: former details: Off x 1.5 weeks substance use type: does not use what type of physical activity do you participate in: walking frequency: 3-4 times per week do you feel safe at home: Yes Results Lab / Micro Data Result Diagrams: 10/07/21 14:28 10/07/21 14:28 Charges/Coding Addendum Addendum: Patient was seen and examined today independently of Angelica Smith, he came to the ER today requesting services for detox from alcohol. Patient states he had been sober for several months but approximately 4 days ago he began drinking again, he states he had stressors at home including the of his brother approximately 2 weeks ago. Patient drinks approximately 12 beers a day last time he had a thing drink was approximately 3 hours ago. Chronic medical problems include hypertension and anxiety. On examination he appeared his stated age, he appeared moderately nervous at the time of my examination and fidgety. Vital signs as documented. Skin warm and dry and without overt rashes. Neck without JVD, neck was supple, trachea midline, thyroid was normal. Lungs clear bilaterally, normal air movement was noted. Heart exam notable for regular rhythm, normal sounds and absence of murmurs, rubs or gallops. Abdomen unremarkable and without evidence of organomegaly, masses, or abdominal aortic enlargement. Bowel sounds are present, abdomen is not distended. Extremities nonedematous, no cyanosis was noted, no clubbing was noted. Neuro: Cranial nerves II through XII are grossly intact, no focal motor deficits were noted, sensation to light touch and pinprick intact, motor exam 5/5 throughout. Psych: Patient is alert and oriented x3, he appears moderately nervous Patient will be admitted to [facility], orders were entered using the alcohol detox order set. I have reviewed Angelica Smith's history and physical including her medical assessment and plan of care and endorse it. Visit Charges Inpatient E&M: 72975 Init Hosp L3
[2021-10-07] MEDS: Phenobarbital 32.4 MG Tablet PO ×2 (15:15→15:30)
[2021-10-07] MEDS: LORazepam 1 MG Tablet PO (15:30)
--- NOTE | 2021-10-07 15:45 | NURSING ---
305 DR FRANCOIS ALCOHOL WITHDRAWAL, HYPONATREMIA
--- NOTE | 2021-10-07 16:38 | CM.ED ---
SOCIAL WORK Reason for Consult: Substance abuse-requesting detox from alcohol due to recent relapse Prior to patient's arrival, received call from Carlo with [employer] updating on patient. Patient admitted to [facility]. Carlo is aware of admission and room number. Carlo to be in tomorrow to complete assessment. Plan: [facility] [employer], PLASTIC PRODUCTS SALES REPRESENTATIVE, DIRECTOR BANKING
[2021-10-07] MEDS: Phenobarbital 32.4 MG Tablet 64.8 MG PO ×2 (17:42→20:38)
[2021-10-07] MEDS: Gabapentin 300 MG Capsule PO (17:43)
[2021-10-07] MEDS: Atenolol 100 MG Tablet PO (20:37)
[2021-10-07] MEDS: Dicyclomine 10 MG Capsule 20 MG PO (20:37)
[2021-10-07] MEDS: Ondansetron 8 MG Tablet PO (20:37)
[2021-10-07] MEDS: busPIRone 15 MG TABLET 7.5 MG PO (20:37)
[2021-10-07] MEDS: traZODone 50 MG Tablet PO (20:37)
[2021-10-07] MEDS: Acetaminophen 500 MG Tablet PO (20:37)
[2021-10-08] MEDS: Phenobarbital 32.4 MG Tablet 64.8 MG PO ×6 (01:55→21:14)
[2021-10-08] MEDS: Gabapentin 300 MG Capsule PO ×2 (01:55→12:49)
[2021-10-08] MEDS: Glycerin/Hypromellose/PEG400 15 ml Bottle 2 DRP EACH EYE (01:55)
[2021-10-08 02:14] VITALS: BP 120/90; PULSE 72; RESP 17; TEMP 36.8; O2SAT 97
[2021-10-08 06:44] LABS: Anion Gap 8 (5-15); BUN 12 mg/dL (7-18); BUN/Creat Ratio 9.8 RATIO (10-20); Calcium,Total 8.6 mg/dL (8.5-10.1); Chloride 97 mmol/L (98-107); Creatinine, Serum 1.23 mg/dL (0.70-1.30); EST Glomerular Filtration Rate 69 mL/min (>60); Est Glom Filt Rate - Afr Amer 84 mL/min (>60); Estimated Creatinine Clearance 72.76 ml/min; Glucose 114 mg/dL (74-106); Potassium 4.6 mmol/L (3.5-5.1); Sodium Level 129 mmol/L (136-145)
[2021-10-08] MEDS: Pantoprazole Sodium 40 MG Tablet PO (08:15)
[2021-10-08 08:33] VITALS: BP 158/101; PULSE 87; RESP 16; TEMP 37.2; O2SAT 99
[2021-10-08] MEDS: Thiamine Hydrochloride 100 MG Tablet PO (08:46)
[2021-10-08] MEDS: busPIRone 15 MG TABLET 7.5 MG PO ×2 (08:46→21:14)
[2021-10-08] MEDS: Folic Acid 1 MG Tablet PO (08:46)
[2021-10-08] MEDS: Venlafaxine XR 150 MG Capsule PO (08:47)
[2021-10-08] MEDS: Lisinopril 20 MG Tablet PO (08:47)
--- NOTE | 2021-10-08 10:01 | CASEMGMT ---
Social Work Note Pt is RAMP pt. Pt is also listed as self-pay. AGAPITO updated Carlo, addiction therapist, who will have pt fill out self-pay paper. SW to also provide pt with self-pay resources when time allows. Monica Dasilva [employer]OOK, MANAGER OUTPATIENT
--- NOTE | 2021-10-08 11:21 | ADDICTION ---
TW met with pt to complete ASAM, AUDIT, DUDIT, MSE, KADY, and d/c plan. Pt was cooperative, pleasant, and answered all questions asked. Pt stated he recently relapsed last week due to stress, panic, and recently losing his brother to COVID 2 weeks ago. [facility] Pt was scheduled for an appointment with her for both 10/17/21 and 10/22/21. Pt reported no SI/HI and no transportation needs at this time. Pt reported he recently had 10 months clean before his relapse and verbalized understanding of therapy, AA meetings, and exercise as his coping skills. Pt reported drinking 12-15 beers daily.
--- NOTE | 2021-10-08 11:24 | PN.HOSP_ITS ---
Documented by User: DELON Melissa 10/08/21 11:26 Subjective Subjective Seen and examined. Patient much less anxious than he was last night upon presentation to ER. Patient sitting in bed no distress noted eating breakfast. Objective Data Objective Data Vital Signs: Vital Signs Temp Pulse Resp BP Pulse Ox 98.9 F 87 16 158/101 H 99 10/08/21 08:33 10/08/21 08:33 10/08/21 08:33 10/08/21 08:33 10/08/21 08:33 Oxygen Delivery Method Room Air Weight: 231 lb 4.238 oz Body Mass Index (BMI) 37.3 Intake & Output: Intake and Output for Last 24 Hours 10/06/21 10/07/21 10/08/21 23:59 23:59 23:59 Intake Total 1000 / 1550 1750 / 1750 Balance 1000 / 1550 1750 / 1750 Lab / Micro Data Result Diagrams: 10/07/21 14:28 10/08/21 05:50 Labs: Laboratory Results - last 24 hr 10/07/21 14:28: WBC 7.2, RBC 4.83, Hgb 15.6, Hct 41.7, MCV 86.3, MCH 32.3 H, MCHC 37.4 H, RDW Std Deviation 38.0, RDW Coeff of Lalitha 11.9, Plt Count 321, MPV 9.1, Immature Gran % (Auto) 0.400, Neut % (Auto) 66.4, Lymph % (Auto) 25.9, [place] % (Auto) 6.6, Eos % (Auto) 0.3, Baso % (Auto) 0.4, Absolute Neuts (auto) 4.8, Absolute Lymphs (auto) 1.86, Nucleated RBC % 0 10/07/21 14:28: Sodium 124 L, Potassium 4.4, Chloride 89 L, Carbon Dioxide 20.0 L, Anion Gap 15, BUN 10, Creatinine 0.89, Estim Creat Clear Calc 100.56, Est GFR (MDRD) Af Amer 122, Est GFR (MDRD) Non-Af 100, BUN/Creatinine Ratio 11.2, Glucose 105, Calcium 8.7, Total Bilirubin 0.60, AST 30, ALT 39, Alkaline Phosphatase 59, Total Protein 8.4 H, Albumin 4.5, Globulin 3.9, Albumin/Globulin Ratio 1.2, Lipase 353 10/07/21 14:28: Ethyl Alcohol 258.0 10/07/21 14:30: Urine Color Straw, Urine Clarity Clear, Urine pH 6.0, Ur Specific [place] 1.010, Urine Protein Negative, Urine Glucose (UA) Normal, Urine Ketones 5 H, Urine Occult Blood Negative, Urine Nitrite Negative, Urine Bilirubin Negative, Urine Urobilinogen Normal, Ur Leukocyte Esterase 25 H, Urine RBC 0 SEEN, Urine WBC 0 SEEN, Ur Squamous Epith Cells 0 SEEN, Urine Bacteria 0 S EEN, Urine Mucus 0 SEEN 10/07/21 14:30: Urine Opiates Screen NEGATIVE, Urine Methadone Screen NEGATIVE, Ur Barbiturates Screen NEGATIVE, Ur Phencyclidine Scrn NEGATIVE, Ur Amphetamines Screen NEGATIVE, U Methamphetamin-MDMA NEGATIVE, U Benzodiazepines Scrn NEGATIVE, Urine Cocaine Screen NEGATIVE, U Cannabinoids Screen NEGATIVE, Ur Drug Screen Comment 10/08/21 05:50: Sodium 129 L, Potassium 4.6, Chloride 97 L, Carbon Dioxide 24.0, Anion Gap 8, BUN 12, Creatinine 1.23, Estim Creat Clear Calc 72.76, Est GFR (MDRD) Af Amer 84, Est GFR (MDRD) Non-Af 69, BUN/Creatinine Ratio 9.8 L, Glucose 114 H, Calcium 8.6 Physical Exam Const alert and oriented x3 General Appearance: cooperative and anxious HEENT normocephalic and head/scalp atraumatic Eyes conjunctivae normal and no scleral icterus Neck supple General: trachea midline Resp normal respiratory effort, normal air movement and clear to auscultation bilaterally Cardio regular rate, regular rhythm, S1 normal heart sound, S2 normal heart sound and peripheral pulses 2+ throughout GI normal to inspection, nondistended, normoactive bowel sounds, soft to palpation and non-tender Extremity normal capillary refill and no clubbing, cyanosis or edema General Extremity: no tenderness to palpation of joints or extremities Neuro oriented x3, moves all extremities and no sensory deficits noted Motor Exam: tremor Type: Positive for resting Positive for bilateral upper extremity and bilateral lower extremity Psych cooperative Appearance: appropriate Mood & Affect: anxious Assessment & Plan Assessment/Plan (1) Alcohol withdrawal: QUALIFIERS: Complication of substance-induced condition: uncomplicated Qualified Code(s): F10.230 - Alcohol dependence with withdrawal, uncomplicated (2) Anxiety and depression: PLAN: 1. Desire for detoxification from alcohol -Continue phenobarbital taper and supportive medications -Social work consulted for coordination with 180, 180 is aware patient is here -Patient not currently experiencing symptoms of alcohol withdrawal 2. Hyponatremia -Likely secondary to alcohol abuse -Sodium improved, 129 -BMP ordered daily 3. Anxiety and depression -Continue BuSpar and Effexor 4. Hypertension -continue atenolol and lisinopril -Vital signs per protocol DVT prophylaxis-not indicated This patient was seen by DELON Melissa under the supervision of Dr. Stokes. Documented by User: Dr. Chanel Stokes MD 10/08/21 14:23 Objective Data Lab / Micro Data Result Diagrams: 10/07/21 14:28 10/08/21 05:50 Charges/Coding Addendum Addendum: This patient was seen in conjunction with Jessenia Fragoso. I have independently interviewed and examined the patient and reviewed pertinent historical, laboratory, and other data. I have reviewed her note and concur with her documentation Patient was seen and examined. He feels improved. No acute events overnight Physical Exam: Gen: Comfortable, not pale, not jaundiced CVS:HS I +II, regular, no murmurs RESP: CTA GI: BS present and normal, soft, nontender, no palpable organs EXT:No edema ASSESSMENT: 1. Acute alcohol withdrawal 2. Hyponatremia 3. Anxiety/depression 4. Hypertension Plan: Continue phenobarbital taper and monitoring Visit Charges Inpatient E&M: 76883 Subs Hosp L2
[2021-10-08 12:39] VITALS: BP 132/86; PULSE 73; RESP 16; TEMP 36.9; O2SAT 96
--- NOTE | 2021-10-08 13:23 | CHAPLAIN ---
Type of Pastoral Visit _x__ Initial Visit ___ Follow-up Visit ___ On-call Visit ___ General Patient Visit ___ Spiritual Assessment ___ Family Conference ___ Bereavement ___ Rapid Response ___ Code Blue ___ Other (describe below) Pastoral Care Referral From _x__ Patient ___ Family ___ Nurse ___ Physician ___ Bobbin Cleaner ___ Flexographic Printing Machinist ___ Other (describe below) Sacrament/Intervention _x__ Active listening ___ Anointing ___ Sabianism ___ Bereavement ___ Communion _x__ Julieta exploration ___ _x__ Life review _x__ Prayer ___ Reconciliation ___ Sacrament of Sick _x__ Supportive presence ___ Wedding ___ Other (describe below) Pastoral Comments patient describes his sobriety and subsequent relapse into drinking; pt concerned about losing opportunity to be with his children and also about finances; pt speaks of his shame and own disappointment; pt then reveals dealing emotionally with of his brother recently; pt says his support is his parents but they don't understand and just yell at me if I drink; pt does not have current julieta group for support but does have some interest in that for the future; pt states that he has been praying and welcomes prayer of this materials technician at this time
[2021-10-08 16:49] VITALS: BP 142/95; PULSE 69; RESP 16; TEMP 37.1; O2SAT 97
[2021-10-08 20:58] VITALS: BP 140/94; PULSE 79; RESP 16; TEMP 36.8; O2SAT 98
[2021-10-08] MEDS: Ibuprofen 600 MG Tablet PO (21:14)
[2021-10-08] MEDS: traZODone 50 MG Tablet PO (21:15)
[2021-10-08] MEDS: Atenolol 100 MG Tablet PO (21:15)
[2021-10-09] MEDS: Phenobarbital 32.4 MG Tablet 64.8 MG PO ×2 (01:11→05:27)
[2021-10-09 03:15] VITALS: BP 108/70; PULSE 60; RESP 16; TEMP 36.6; O2SAT 98
[2021-10-09] MEDS: Venlafaxine XR 150 MG Capsule PO (08:34)
[2021-10-09] MEDS: Pantoprazole Sodium 40 MG Tablet PO (08:34)
[2021-10-09] MEDS: Thiamine Hydrochloride 100 MG Tablet PO (08:34)
[2021-10-09] MEDS: Folic Acid 1 MG Tablet PO (08:34)
[2021-10-09] MEDS: busPIRone 15 MG TABLET 7.5 MG PO (08:35)
[2021-10-09] MEDS: Lisinopril 20 MG Tablet PO (08:40)
[2021-10-09 08:45] VITALS: BP 131/86; PULSE 68; RESP 18; TEMP 35.7; O2SAT 97
--- NOTE | 2021-10-09 08:55 | NURSING ---
Pt not having any symptoms. Fransisco Garcia PRIMARY CARE PEDIATRICIAN here and wants to wait 6hrs for the phenobarbital instead of giving it at 0900 it will be given at 1100 per Fransisco IVY as she wants to see how he does with waiting 6hrs inbetween.
--- NOTE | 2021-10-09 09:46 | CASEMGMT ---
Social Work Note SW in to speak with pt regarding self-pay. Pt confirms he is self-pay, states that he applied for Medicaid about 1.5 weeks ago. SW provided pt with financial resources including [employer] application, Medicaid Application, [facility] information, [employer], and [employer] [id number]. Pt denied additional needs or concerns at this time. Monica Dasilva EMERGENCY MEDICINE MEDICAL DIRECTOR, FLASK CARRIER
[2021-10-09] MEDS: Phenobarbital 32.4 MG Tablet PO ×2 (11:37→17:57)
--- NOTE | 2021-10-09 12:54 | PCM.DC ---
Discharge Instructions Diet Discharge Diet: No restrictions Activity Discharge Activity: Return to Normal Activity Follow Up Care Test Results: Test results from this visit will be discussed in further detail at your follow-up appointment, if applicable. Discharge Plan Admission Admit Date/Time: 10/07/21 15:04 Primary Reason for Your Visit: Alcohol Detox Attending Provider: Chanel Stokes Primary Care Provider: Jacquelin Quezada Discharge Orders/Prescriptions Prescriptions: New trazodone 50 mg Tablet 50 mg PO QHS PRN PRN (Reason: insomnia) 30 Days Qty: 30 RF: 0 venlafaxine 150 mg Capsule,Extended Release 24hr 150 mg PO DAILY 30 Days Qty: 30 RF: 0 buspirone 15 mg Tablet 7.5 mg PO BID 30 Days Qty: 30 RF: 0 Continued albuterol sulfate 90 mcg/actuation HFA aerosol inhaler 2 puff INHALATION 6XD PRN (Reason: shortness of breath or wheezing) Qty: 8.5 RF: 0 loratadine 10 mg tablet 10 mg PO DAILY PRN (Reason: allergies) Qty: 90 RF: 1 lansoprazole 30 mg capsule,delayed release(DR/EC) 30 mg PO DAILY Qty: 90 RF: 3 atenolol 100 mg tablet 100 mg PO QHS Qty: 90 RF: 1 Changed lisinopril 20 mg tablet 20 mg PO DAILY Qty: 0 RF: 0 Discontinued venlafaxine 150 mg capsule,extended release 24hr 150 mg PO DAILY Qty: 90 RF: 3 trazodone 50 mg tablet 50 mg PO QHS PRN (Reason: insomnia) Qty: 90 RF: 1 buspirone 7.5 mg tablet 7.5 mg PO BID Qty: 60 RF: 1 Referrals / Follow Up: Jacquelin Quezada MD [Primary Care Provider] -
--- NOTE | 2021-10-09 13:05 | PCM.DC.SUM ---
Documented by User: DELON Melissa 10/09/21 13:11 Providers Date of Admission: 10/07/21 Primary Care Physician: Dr. Jacquelin Quezada MD Reason For Visit: ALCOHOL DETOX Diagnosis Discharge Diagnosis (1) Alcohol withdrawal: Status: Acute Code(s): F10.239 - Alcohol dependence with withdrawal, unspecified Qualifiers: Complication of substance-induced condition: uncomplicated Qualified Code(s): F10.230 - Alcohol dependence with withdrawal, uncomplicated (2) Anxiety and depression: Status: Chronic Code(s): F41.9 - Anxiety disorder, unspecified; F32.9 - Major depressive disorder, single episode, unspecified Medications at Discharge Home Medications albuterol sulfate 90 mcg/actuation aerosol inhaler 2 puff INHALATION 6XD PRN #8.5 g 01/27/20 loratadine 10 mg tablet 10 mg PO DAILY PRN #90 tab 07/04/20 lansoprazole 30 mg capsule,delayed release 30 mg PO DAILY #90 cap 04/12/21 atenolol 100 mg tablet 100 mg PO QHS #90 tab 09/04/21 buspirone 7.5 mg PO BID 30 Days #30 tab 10/09/21 lisinopril 20 mg PO DAILY #0 tab 10/09/21 trazodone 50 mg PO QHS PRN PRN 30 Days #30 tab 10/09/21 venlafaxine 150 mg PO DAILY 30 Days #30 cap 10/09/21 Hospital Course Operations None Procedures None Summary of Care Provided Minutes Spent on Discharge: 20 Hospital Course: Patient is a 40-year-old male who presented for alcohol detoxification following a relapse due to his brother's . Patient has been on phenobarbital throughout admission and is doing well. Patient is requesting to be discharged this afternoon to minimize the amount of work he is missing. Patient is tolerating detox well and will be discharged home with instructions to follow-up with 180 Physical Exam Const alert and oriented x3 General Appearance: cooperative and anxious HEENT normocephalic and head/scalp atraumatic Eyes conjunctivae normal and no scleral icterus Neck supple General: trachea midline Resp normal respiratory effort, normal air movement and clear to auscultation bilaterally Cardio regular rate, regular rhythm, S1 normal heart sound, S2 normal heart sound and peripheral pulses 2+ throughout GI normal to inspection, nondistended, normoactive bowel sounds, soft to palpation and non-tender Extremity normal capillary refill and no clubbing, cyanosis or edema General Extremity: no tenderness to palpation of joints or extremities Neuro oriented x3, moves all extremities and no sensory deficits noted Motor Exam: tremor Type: Positive for resting Positive for bilateral upper extremity and bilateral lower extremity Psych cooperative Appearance: appropriate Mood & Affect: anxious Weight / BMI Weight Weight: 231 lb 4.238 oz Body Mass Index (BMI) 37.3 ABG / Lab / Microbiology Data Result Diagrams: 10/07/21 14:28 10/08/21 05:50 D/C Instructions Discharge Diet: No restrictions Meaningful Use Info Meaningful Use Diagnoses (Choose all that apply): None applicable Discharge Plan Admission Admit Date/Time: 10/07/21 15:04 Primary Reason for Your Visit: Alcohol Detox Attending Provider: Chanel Stokes Primary Care Provider: Jacquelin Quezada Discharge Orders/Prescriptions Prescriptions: New trazodone 50 mg Tablet 50 mg PO QHS PRN PRN (Reason: insomnia) 30 Days Qty: 30 RF: 0 venlafaxine 150 mg Capsule,Extended Release 24hr 150 mg PO DAILY 30 Days Qty: 30 RF: 0 buspirone 15 mg Tablet 7.5 mg PO BID 30 Days Qty: 30 RF: 0 Continued albuterol sulfate 90 mcg/actuation HFA aerosol inhaler 2 puff INHALATION 6XD PRN (Reason: shortness of breath or wheezing) Qty: 8.5 RF: 0 loratadine 10 mg tablet 10 mg PO DAILY PRN (Reason: allergies) Qty: 90 RF: 1 lansoprazole 30 mg capsule,delayed release(DR/EC) 30 mg PO DAILY Qty: 90 RF: 3 atenolol 100 mg tablet 100 mg PO QHS Qty: 90 RF: 1 Changed lisinopril 20 mg tablet 20 mg PO DAILY Qty: 0 RF: 0 Discontinued venlafaxine 150 mg capsule,extended release 24hr 150 mg PO DAILY Qty: 90 RF: 3 trazodone 50 mg tablet 50 mg PO QHS PRN (Reason: insomnia) Qty: 90 RF: 1 buspirone 7.5 mg tablet 7.5 mg PO BID Qty: 60 RF: 1 Referrals / Follow Up: Jacquelin Quezada MD [Primary Care Provider] - 10/10/21 2:00 pm (IF SELF PAY PLEASE BRING A COPAY OF 50.00 AT TIME OF APT) Rachel Butler DO [STAFF PHYSICIAN] - See Referral Note Disposition Disposition (needs filled in before D/C Order can be placed): Home, Self Care Documented by User: Dr. Cahnel Stokes MD 10/09/21 15:01 Providers Date of Admission: 10/07/21 Reason For Visit: ALCOHOL DETOX Medications at Discharge Home Medications albuterol sulfate 90 mcg/actuation aerosol inhaler 2 puff INHALATION 6XD PRN #8.5 g 01/27/20 loratadine 10 mg tablet 10 mg PO DAILY PRN #90 tab 07/04/20 lansoprazole 30 mg capsule,delayed release 30 mg PO DAILY #90 cap 04/12/21 atenolol 100 mg tablet 100 mg PO QHS #90 tab 09/04/21 buspirone 7.5 mg PO BID 30 Days #30 tab 10/09/21 lisinopril 20 mg PO DAILY #0 tab 10/09/21 trazodone 50 mg PO QHS PRN PRN 30 Days #30 tab 10/09/21 venlafaxine 150 mg PO DAILY 30 Days #30 cap 10/09/21 ABG / Lab / Microbiology Data Result Diagrams: 10/07/21 14:28 10/08/21 05:50 Discharge Plan Admission Admit Date/Time: 10/07/21 15:04 Primary Reason for Your Visit: Alcohol Detox Attending Provider: Chanel Stokes Primary Care Provider: Jacquelin Quezada Discharge Orders/Prescriptions Prescriptions: New trazodone 50 mg Tablet 50 mg PO QHS PRN PRN (Reason: insomnia) 30 Days Qty: 30 RF: 0 venlafaxine 150 mg Capsule,Extended Release 24hr 150 mg PO DAILY 30 Days Qty: 30 RF: 0 buspirone 15 mg Tablet 7.5 mg PO BID 30 Days Qty: 30 RF: 0 Continued albuterol sulfate 90 mcg/actuation HFA aerosol inhaler 2 puff INHALATION 6XD PRN (Reason: shortness of breath or wheezing) Qty: 8.5 RF: 0 loratadine 10 mg tablet 10 mg PO DAILY PRN (Reason: allergies) Qty: 90 RF: 1 lansoprazole 30 mg capsule,delayed release(DR/EC) 30 mg PO DAILY Qty: 90 RF: 3 atenolol 100 mg tablet 100 mg PO QHS Qty: 90 RF: 1 Changed lisinopril 20 mg tablet 20 mg PO DAILY Qty: 0 RF: 0 Discontinued venlafaxine 150 mg capsule,extended release 24hr 150 mg PO DAILY Qty: 90 RF: 3 trazodone 50 mg tablet 50 mg PO QHS PRN (Reason: insomnia) Qty: 90 RF: 1 buspirone 7.5 mg tablet 7.5 mg PO BID Qty: 60 RF: 1 Referrals / Follow Up: Jacquelin Quezada MD [Primary Care Provider] - 10/10/21 2:00 pm (IF SELF PAY PLEASE BRING A COPAY OF 50.00 AT TIME OF APT) Rachel Butler DO [STAFF PHYSICIAN] - See Referral Note Disposition Disposition (needs filled in before D/C Order can be placed): Home, Self Care Charges/Coding Addendum Addendum: This patient was seen in conjunction with Jessenia Fragoso. I have independently interviewed and examined the patient and reviewed pertinent historical, laboratory, and other data. I have reviewed her note and concur with her documentation 40-year-old male with past medical history of alcohol use disorder who comes in requesting medical stabilization for acute alcohol withdrawal. Patient was admitted and started on a phenobarbital withdrawal protocol. Patient did well and was discharged home to follow-up with [facility]. On the day of discharge, patient was examined. Denied any new complaint. Physical Exam: Gen: Comfortable, not pale, not jaundiced CVS:HS I +II, regular, no murmurs RESP: CTA GI: BS present and normal, soft, nontender, no palpable organs EXT:No edema Visit Charges Inpatient E&M: 27767 Disch Hosp
--- NOTE | 2021-10-09 14:08 | PHA.DC.MR ---
Pharmacy Service has performed discharge medication reconciliation for this patient. The patient's discharge medication list was reviewed for discrepancies and discrepancies were resolved. Home Medications albuterol sulfate 90 mcg/actuation aerosol inhaler 2 puff INHALATION 6XD PRN #8.5 g 01/27/20 loratadine 10 mg tablet 10 mg PO DAILY PRN #90 tab 07/04/20 lansoprazole 30 mg capsule,delayed release 30 mg PO DAILY #90 cap 04/12/21 atenolol 100 mg tablet 100 mg PO QHS #90 tab 09/04/21 buspirone 7.5 mg PO BID 30 Days #30 tab 10/09/21 lisinopril 20 mg PO DAILY #0 tab 10/09/21 trazodone 50 mg PO QHS PRN PRN 30 Days #30 tab 10/09/21 venlafaxine 150 mg PO DAILY 30 Days #30 cap 10/09/21
[2021-10-09 14:59] VITALS: BP 147/73; PULSE 65; RESP 16; TEMP 36.7; O2SAT 96
--- NOTE | 2021-10-09 14:59 | ADDICTION ---
TW met with pt to offer supportive counseling an Addiction Workbook to work on for home discharge. Pt processed stressors and TW offered additional care in between appointments if he needs additional support. Pt was agreeable and felt ready and motivated to discharge and start on recovery plan.
--- NOTE | 2021-10-09 17:49 | CASEMGMT ---
Social Work Note SW updated that pt is requesting RX assistance program through [facility]. SW completed RX assistance, tubed to retail pharmacy. Monica Dasilva SEPARATIONS SCIENTIST, [employer]
== END 2021-10-09 18:10 | disposition home or self-care (01) | DRG 897 ==
LOC: ED 15:21 → MS3 15:50
PROVIDERS: Admitting Provider Internal Medicine; Emergency Provider Emergency Medicine; PCP Internal Medicine; Visit Provider Internal Medicine
DX: F10.230 Alcohol dependence with withdrawal, uncomplicated (principal); E87.1 Hypo-osmolality and hyponatremia; F17.290 Nicotine dependence, other tobacco product, uncomplicated; I10 Essential (primary) hypertension; F32.A Depression, unspecified; F41.9 Anxiety disorder, unspecified; Z79.899 Other long term (current) drug therapy
CPT/HCPCS: 36415; 80048; 80053; 80307; 81001; 82077; 83690; 85025; 99285; 99406; J7030; 90686; A4216; J2405

== ENCOUNTER → 2023-08-19 | Outpatient (CLI) | payer OTHER, SELFPAY ==
[2023-08-19 12:21] LABS: Absolute Lymphocyte Count 1.28 X10^3/uL (0.83-4.51); Absolute Neutrophil Count 2.9 X10^3/uL (2.0-7.7); Basophil# 0.04 X10^3/uL; Basophil% 0.8 % (0-1); Hematocrit 39.7 % (40-54); Hemoglobin 13.9 g/dL (13.0-16.5); Lymphocyte # 1.28 X10^3/ul (0.83-4.51); Lymphocyte % 25.9 % (19-41); Mean Corpuscular Hgb 31.4 pg (27.0-32.0); Mean Corpuscular Volume 89.6 fL (80-94); Mean Platelet Vol. 10.3 fl (6.2-12.0); Monocyte# 0.49 X10^3/uL; Monocyte% 9.9 % (0-10); NRBC Flagged by Analyzer 0 % (0-5); Neutrophil # 2.93 X10^3/uL (2.7-7.7); Neutrophil % 59.2 % (47-70); Platelet Count 248 K/mm3 (150-450); RBC Distribution Width CV 13.7 % (11.6-14.6); RBC Distribution Width SD 45.3 fl (35.1-43.9); Red Blood Count 4.43 M/mm3 (4.6-6.2)
[2023-08-19 12:59] LABS: ALB/GLOB Ratio 1.1 RATIO (0.9-2.4); AST(SGOT) 17 U/L (15-37); Alanine Aminotransfer ALT/SGPT 32 U/L (16-61); Albumin, Serum 3.9 g/dL (3.2-5.0); Alkaline Phosphatase 51 U/L (45-117); Anion Gap 4 (5-15); BUN 14 mg/dL (7-18); Calcium,Total 9.2 mg/dL (8.5-10.1); Chloride 109 mmol/L (98-107); Cholesterol 170 mg/dL (200); Creatinine, Serum 1.08 mg/dL (0.70-1.30); EST Glomerular Filtration Rate 80 mL/min (>60); Est Glom Filt Rate - Afr Amer 97 mL/min (>60); Globulin 3.6 g/dL (2.2-4.2); Glucose 96 mg/dL (74-106); High Density Lipoprotein 50 mg/dL; Potassium 4.7 mmol/L (3.5-5.1); Protein, Total 7.5 g/dL (6.4-8.2); Sodium Level 142 mmol/L (136-145); Triglycerides 81 mg/dL; Very Low Density Lipoprotein 16 mg/dL (5-40)
== END | disposition home or self-care (01) ==
LOC: BIMLAB 10:57
PROVIDERS: PCP Internal Medicine; Referring Provider Internal Medicine; Visit Provider Internal Medicine
DX: I10 Essential (primary) hypertension (principal)
CPT/HCPCS: 36415; 80053; 80061; 85025